=== PATIENT | male | born 1955 | race Caucasian/White ===

== ENCOUNTER → 2022-12-10 07:54 | Outpatient (BNVA) | payer MEDICARE, SELFPAY | PROVIDERS: PCP Pediatrics; Visit Provider Internal Medicine Rheumatology | DX: M25.511 Pain in right shoulder (principal); M25.512 Pain in left shoulder; M25.551 Pain in right hip; M25.552 Pain in left hip; H35.52 Pigmentary retinal dystrophy; M10.9 Gout, unspecified; Z87.39 Personal history of other diseases of the musculoskeletal system and connective tissue | CPT/HCPCS: 99202 ==

== ENCOUNTER 2022-12-10 09:58 | Outpatient (REF) | payer MEDICARE, SELFPAY ==
[2022-12-10 10:25] LABS: MANUAL DIFF FLAG NO
[2022-12-10 10:30] LABS: Basophils Percent Auto 0.5 % (0-2); Eosinophils Absolute Auto 0.1 X10*3/uL (0.0-0.4); Eosinophils Percent Auto 0.8 % (0-4); Hematocrit 45.5 % (42.0-52.0); Hemoglobin 15.3 g/dl (14.0-18.0); Imm Gran Abs Auto 0.21 X10*3/uL (0.00-0.03); Imm Gran Pct Auto 2.6 % (0.0-0.4); Lymphocytes Absolute Auto 1.3 X10*3/uL (1.2-4.9); Lymphocytes Percent Auto 16.9 % (20-40); Mean Corpuscular HGB Conc 33.6 g/dl (31.0-36.0); Mean Corpuscular Hemoglobin 31.6 pg (27.0-33.0); Mean Platelet Volume 10.9 fL (9.4-12.4); Monocytes Absolute Auto 0.7 X10*3/uL (0.1-1.2); Monocytes Percent Auto 9.3 % (2-11); Neutrophils Absolute Auto 5.5 x10*3/uL (2.0-8.3); Neutrophils Percent Auto 69.9 % (45-73); Platelet Count 202 X10*3/uL (160-400); Red Blood Count 4.84 X10*6/uL (4.60-5.80); Red Cell Distribution Width 12.8 % (11.0-16.0); White Blood Count 7.9 X10*3/uL (4.8-10.8)
[2022-12-10 11:14] LABS: Erythrocyte Sedimentation Rate 3 MM/HR (0-15)
[2022-12-10 11:29] LABS: Anion Gap 14 (12-20); Blood Urea Nitrogen 14 mg/dL (9-16); Calcium 10.1 mg/dL (8.4-10.2); Carbon Dioxide 26 mmol/L (22-29); Chloride 104 mmol/L (96-108); Estimated Glomerular Filt Rate > 60; Glucose Random 93 mg/dL (60-115); Potassium 4.1 mmol/L (3.3-5.1); Sodium 140 mmol/L (135-145); Uric Acid 4.7 mg/dL (3.4-7.0)
== END 2022-12-10 09:59 | disposition home or self-care (01) ==
LOC: HO.10HDL 09:58
PROVIDERS: Visit Provider Internal Medicine Rheumatology
DX: M10.9 Gout, unspecified (principal); M25.551 Pain in right hip; M25.552 Pain in left hip; E11.9 Type 2 diabetes mellitus without complications; E87.6 Hypokalemia; E87.0 Hyperosmolality and hypernatremia; E89.0 Postprocedural hypothyroidism; F32.9 Major depressive disorder, single episode, unspecified; I10 Essential (primary) hypertension; Z87.39 Personal history of other diseases of the musculoskeletal system and connective tissue
CPT/HCPCS: 36415; 80048; 84550; 85025; 85652; 86140

== ENCOUNTER 2023-01-30 08:21 | Outpatient (AMB) | payer MEDICARE, SELFPAY ==
--- NOTE | 2023-01-30 08:23 | A.OFFVIS_ITS ---
Intake Vital Signs 01/30/23 08:24 Height 5 ft 10 in Weight 175 lb 11.335 oz BMI 25.2 BP 160/82 H Blood Pressure Location Lt brachial Position Sitting Pulse 82 Pulse Source Pulse Oximeter Temp 97 F Temp Source Skin Pulse Oximetry (%) 98 Oxygen Delivery Method Room Air Intake Visit Reasons: PMR Intake Note: Here for PMR follow up. Battery Plate Remover Required: No Accompanied by: Self / Same As Patient Allergies No Known Allergies Allergy (Verified 01/30/23 08:28) HPI HPI Comments History of Present Illness Details Patient returns for evaluation of his PMR and gout. He is down to 5 mg twice a day on the prednisone and feels that was quite helpful. He was having some left knee pain from OA. He did acquire a PRP injection there from Orthopedics in [place]. It did seem to help him. He has not had any headache, jaw claudication or visual disturbance. He remains on 100 mg daily allopurinol with no side effects with that and no gout attacks. Interestingly enough when we restarted the prednisone the CRP and ESR were normal. He is doing some home renovations and developed some right lateral epicondylar pain after working with some sheet rock yesterday. He had a similar injury years ago in the left elbow so he knows this is tendinitis. He can not tolerate diclofenac orally for more than a few doses before he gets abdominal pain. It does help when he takes it however. [facility] Medical History (Updated 01/30/23 @ 08:42 by Jair Bowling MD) History of pulmonary embolus (PE) History of rectal cancer Surgical History History of melanoma excision Family History Mother Breast cancer Father Stroke Social History Alcohol intake: current Patient Tobacco Use Status: Former Tobacco user Review of Systems Const Details: Negative for appetite change, weight change, fever, chills, malaise and fatigue Eyes Details: Negative for vision change, dry eyes,headaches and dizziness Neuro Details: Negative for epilepsy, palsy, stroke, changes in speech, tingling and weakness Endo Details: Negative for polyuria and polydypsia Joselito/Lymph Details: Negative for excessive bruising or bleeding. Physical Exam Vital Signs: Last Vital Signs Temp 97 F 01/30/23 08:24 Pulse 82 01/30/23 08:24 BP 160/82 H 01/30/23 08:24 Pulse Ox 98 01/30/23 08:24 Oxygen Delivery Method Room Air 01/30/23 08:24 BMI result Body Mass Index 25.2 APPEARANCE: Patient in no acute distress EYES no redness, pupils equal and reactive to light, eyelids normal no temporal artery tenderness. No temporal artery tenderness redness or swelling. EXTREMITIES: No edema, no calf tenderness, normal peripheral pulses. JOINT EXAM: ?? Cervical Spine:.? Full range of motion with mild pain at the extremes of motion.? No tenderness. Thoracic Spine:.? No scoliosis.? No tenderness on palpation. Lumbar Spine:.? Alignment normal.? Full range of motion without pain, no tenderness. Chest Wall:.? No tenderness, swelling, increased warmth or erythema. Hands:.? Normal pain-free range of motion without tenderness, swelling, increased warmth or erythema. Able to make a full fist and has a good social work program coordinator strength. Wrists:.? Normal pain-free range of motion without tenderness, swelling, increased warmth or erythema. Elbows: Left: Normal pain-free range of motion without tenderness, swelling, increased warmth or erythema. Right: Slight pain with full extension at the elbow. The pain is felt over the lateral epicondyle where he has [id number] tenderness. No tenderness or swelling over the joint space. Shoulders:.?? Full range of motion with mild pain at the extremes of abduction and rotation.? There is some slight anterior tenderness without adenopathy, weakness, swelling, increased warmth or erythema. Hips:.? Normal pain-free range of motion. Hip bursa:.? No tenderness. Knees:? Left:?? Normal pain-free range of motion without tenderness, swelling, increased warmth or erythema.? There is no effusion or crepitation.? Right:? Normal pain-free range of motion.? There is some slight medial compartment tenderness without redness, warmth, crepitus or effusion. Ankles:.? Normal pain-free range of motion without tenderness, swelling, increased warmth or erythema. Feet:.? Normal pain-free range of motion with mild 1st MTP bony enlargement bilaterally.? This is a bit more prominent on the left.? There is no MTP tenderness.? Elsewhere in the foot there is no tenderness, swelling, increased warmth or erythema. Tender points:? No tenderness to digital palpation at the occiput, trapezius, second rib, lateral epicondyle, knees, greater trochanter and gluteal area bilaterally. ? Results Reviewed Results Reviewed: Laboratory Tests 12/10/22 12/10/22 12/10/22 10:04 10:04 10:04 WBC 7.9 Hgb 15.3 ESR 3 Creatinine 0.88 C-Reactive Protein 0.30 Laboratory Tests 12/10/22 10:04 Uric Acid 4.7 Assessment & Plan Assessment & Plan (1) Lateral epicondylitis of right elbow: Code(s): M77.11 - Lateral epicondylitis, right elbow (2) Gout: Comment: allopurinol started 2014 Code(s): M10.9 - Gout, unspecified (3) History of polymyalgia rheumatica: Comment: On prednisone in 2014 - tapered off, restarted 11/2022 Code(s): Z87.39 - Personal history of other diseases of the musculoskeletal system and connective tissue Plan He has PMR with no symptoms on this current dose of prednisone so we will have him cut the dose to 5 mg in the morning and 2.5 mg in the afternoon. If that goes okay after one month he will cut the dose down to just 5 mg once daily. I will prescribe some Celebrex 200 mg daily for the lateral epicondylitis in the right elbow. He was advised to avoid overuse of the elbow. Medications: New prednisone two in AM and one in PM for a month, then two in AM 90 tabs 1RF Z87.39 - Personal history of other diseases of the musculoskeletal system and connective tissue celecoxib (Celebrex) 200 mg PO DAILY 30 caps 1RF M77.11 - Lateral epicondylitis, right elbow Discontinued prednisone Discontinued Reason: Doctor's Order 3 tab once a day for 5 days then one tab twice a day 60 tabs 3RF Coding Level of Care Code Est Pt Level 3 (14276) Diagnoses Lateral epicondylitis of right elbow M77.11 Gout M10.9 History of polymyalgia rheumatica Z87.39
[2023-01-30 08:24] VITALS: BP 160/82; PULSE 82; TEMP 36.1; O2SAT 98; BMI 25.2
== END 2023-01-30 08:50 | disposition home or self-care (01) ==
PROVIDERS: PCP Pediatrics; Visit Provider Internal Medicine Rheumatology
DX: M77.11 Lateral epicondylitis, right elbow (principal); M10.9 Gout, unspecified; Z87.39 Personal history of other diseases of the musculoskeletal system and connective tissue
CPT/HCPCS: 99213

== ENCOUNTER → 2023-01-30 08:21 | Outpatient (BNVA) | payer MEDICARE, SELFPAY | PROVIDERS: PCP Pediatrics; Visit Provider Internal Medicine Rheumatology | DX: M77.11 Lateral epicondylitis, right elbow (principal); M10.9 Gout, unspecified; Z87.39 Personal history of other diseases of the musculoskeletal system and connective tissue | CPT/HCPCS: 99212 ==

== ENCOUNTER 2023-04-22 08:09 | Outpatient (AMB) | payer MEDICARE, SELFPAY ==
[2023-04-22 08:18] VITALS: BP 120/70; TEMP 36.7; BMI 24.8
--- NOTE | 2023-04-22 08:18 | MHC.OFFVIS ---
Intake Vital Signs 04/22/23 08:18 Height 5 ft 10 in Weight 172 lb 13.478 oz BMI 24.8 BP 120/70 Blood Pressure Location Lt brachial Position Sitting Temp 98.1 F Temp Source Skin Intake Visit Reasons: pmr Intake Note: Patient presents today to follow up on lateral epicondylitis of right elbow. Reports being admitted to [facility] due to clot on right lung. Discharged 04/18/23. Pilot Steam Yacht Required: No Accompanied by: Self / Same As Patient Allergies No Known Allergies Allergy (Verified 04/22/23 08:22) Medication List - Last Reconciled 04/22/23 by Jair Bowling MD allopurinol 300 mg PO DAILY allopurinol 100 mg PO DAILY amlodipine 2.5 mg PO DAILY apixaban (Eliquis DVT-PE Treat 30D Start) 5 mg PO DIRECTED benazepril 40 mg PO DAILY omeprazole 20 mg PO DAILY pravastatin 80 mg PO BEDTIME prednisone 5 mg PO QAM HPI HPI Comments History of Present Illness Details The patient returns for evaluation of his PMR. He had been doing well at 5 mg b.i.d. prednisone and we tapered it to 2.5 daily and he felt worse. We increased it back up to 5 mg prednisone twice a day and he felt better. However he then again tapered down to 5 mg and was feeling worse with more pains in the hips, neck and shoulders. However last Friday he developed pleuritic right-sided chest pain. He had had a previous pulmonary embolus following right rotator cuff surgery years ago so he was concerned about a PE. That was confirmed at [facility]. He is now on Eliquis. The chest pain is still present although subsiding. He also had some right anterior rib pain that had developed after he bumped his rib cage in the bathroom few weeks ago. That pain seems to be in a different location. He no longer has any shortness of breath. There was no fever, chills, headache, or visual disturbances. He does admit to some decrease in appetite but otherwise feels okay. He remains on allopurinol 400 mg daily for gout and amlodipine and benazepril for hypertension. The Eliquis is at 10 mg twice a day currently and scheduled to reduce to 5 mg twice a day. He takes pravastatin for hyperlipidemia and he stopped the Celebrex that he was taking for OA. I do not have access yet to his discharge summary but we are trying to obtain it from [facility]. He recalls having a low potassium. He recalls that they did not give him a good reason why he had the PE. They did the ultrasound of the legs and no clots were found. [facility] Medical History (Updated 04/22/23 @ 08:22 by Jair Bowling MD) History of rectal cancer History of pulmonary embolus (PE) Surgical History History of melanoma excision Family History Mother Breast cancer Father Stroke Social History (Updated 04/22/23 @ 08:22 by SHELDON James) Alcohol intake: current Alcohol intake frequency: a few times a week Patient Tobacco Use Status: Former Tobacco user Review of Systems Const Details: Some decrease in appetite last few weeks. He has lost a couple of lb. 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 Negative for dry eyes,headaches and dizziness ENT Details: Negative for hearing change, dysphagia, tinnitus, oral ulcer, nose bleeds and oral dryness. Card Details: Negative chest pain, edema and syncope Resp Details: Negative for SOB, cough and wheezing GI Details: Negative indigestion/heartburn, nausea, abdominal pain, bowel changes, diarrhea, constipation and bloody stool. Details: Negative for dysuria, hematuria, nocturia, decreased force/flow and genital discharge Skin/Breast Details: Negative for itching, rash, hives, Raynaud's symptoms, sun sensitivity, and skin cancer Neuro Details: Negative for epilepsy, palsy, stroke, changes in speech, tingling and weakness Psych Details: Negative for anxiety, depression and stress Endo Details: Negative for polyuria and polydypsia Joselito/Lymph Details: Negative for excessive bruising or bleeding. Physical Exam Vital Signs: Last Vital Signs Temp 98.1 F 04/22/23 08:18 BP 120/70 04/22/23 08:18 BMI result Body Mass Index 24.8 APPEARANCE: Patient in no acute distress EYES no redness, pupils equal and reactive to light, eyelids normal. No temporal artery tenderness, redness or swelling. THROAT: Oral mucosa moist, no ulcerations NECK: No thyromegaly or masses, no adenopathy, trachea midline. HEART: Regulrar rhythm, S1-S2 heard, no murmurs, rubs or gallops. LUNG: Clear to percussion and auscultation. Taking a deep breath still causes some pleuritic pain on the right side. He also has some right costal margin tenderness. ABD: Normal bowel sounds, no organomegaly, masses or tenderness. EXTREMITIES: No edema, no calf tenderness, normal peripheral pulses. NEURO: Oriented and alert x3. No focal weakness. Reflexes symmetric. Gait normal. SKIN: No inflammatory or neoplastic lesions. Normal color and turgor JOINT EXAM:?? Cervical Spine:.? Full range of motion with mild pain at the extremes of motion.? No tenderness. Thoracic Spine:.? No scoliosis.? No tenderness on palpation. Lumbar Spine:.? Alignment normal.? Full range of motion without pain, no tenderness. Chest Wall:.? Mild tenderness along the right costal margin. No areas of swelling, increased warmth or erythema. Hands:.? Right: Slight tenderness in the 2nd and 5th flexor tendons. No soft tissue swelling, thenar atrophy or sensory loss. Left: Mild tenderness along the 5th flexor tendon. Otherwise normal pain-free range of motion without tenderness, swelling, increased warmth or erythema. No thenar atrophy or sensory loss. Wrists:.? Normal pain-free range of motion without tenderness, swelling, increased warmth or erythema. Elbows: Left: Normal pain-free range of motion without tenderness, swelling, increased warmth or erythema. Right: Slight pain with full extension at the elbow. The pain is felt over the lateral epicondyle where he has mild tenderness. No tenderness or swelling over the joint space. Shoulders:.?? Full range of motion with mild pain at the extremes of abduction and rotation.? There is some slight anterior tenderness without adenopathy, weakness, swelling, increased warmth or erythema. Hips:.? Mild buttock and groin pain with extremes of normal range of motion. Hip bursa:.? No tenderness. Knees:? Left:?? Normal pain-free range of motion without tenderness, swelling, increased warmth or erythema.? There is no effusion or crepitation.? Right:? Normal pain-free range of motion.? There is some slight medial compartment tenderness without redness, warmth, crepitus or effusion. Ankles:.? Normal pain-free range of motion without tenderness, swelling, increased warmth or erythema. Feet:.? Normal pain-free range of motion with mild 1st MTP bony enlargement bilaterally.? This is a bit more prominent on the left.? There is no MTP tenderness.? Elsewhere in the foot there is no tenderness, swelling, increased warmth or erythema. Tender points:? No tenderness to digital palpation at the occiput, trapezius, second rib, lateral epicondyle, knees, greater trochanter and gluteal area bilaterally. Results Reviewed Results Reviewed: Laboratory Tests 12/10/22 10:04 Hgb 15.3 ESR 3 Creatinine 0.88 Uric Acid 4.7 C-Reactive Protein 0.30 Assessment & Plan Assessment & Plan (1) Pulmonary embolism: Comment: 04/2023 at [facility] Code(s): I26.99 - Other pulmonary embolism without acute cor pulmonale (2) Lateral epicondylitis of right elbow: Code(s): M77.11 - Lateral epicondylitis, right elbow (3) Gout: Comment: allopurinol started 2014 Code(s): M10.9 - Gout, unspecified (4) History of polymyalgia rheumatica: Comment: On prednisone in 2014 - tapered off, restarted 11/2022 Code(s): Z87.39 - Personal history of other diseases of the musculoskeletal system and connective tissue Plan PMR with some increase in symptoms with the reduction in prednisone dose. We will go back up on the prednisone to 5 mg twice a day. I think he should stay at that dose for a while, a few months, to allow the disease to be controlled. He does not have any signs of giant cell arteritis. The recent development of a pulmonary embolus without any obvious predisposing cause raises the question whether he might have a coagulopathy. I would presume they did some workup in the hospital to that end but probably the blood work is not returned. He should follow-up with his PCP on further evaluation for hypercoagulable state, help may be needed from Hematology. He should stay away from the Celebrex since it is a potential risk factor for bleeding and with being on the anticoagulant that could be a significant clinical event. He is doing well with the allopurinol with no gout attacks so he can continue as before. There still are some tenderness in a few of the flexor tendons from tenosynovitis and the elbows from lateral epicondylitis. I will check ESR and CRP when he has his blood work done with his primary doctor in few weeks. Medications: New prednisone 5 mg (2 x 2.5 mg) PO BID 120 tabs 0RF Z87.39 - Personal history of other diseases of the musculoskeletal system and connective tissue Coding Level of Care Code Est Pt Level 3 (78898) Diagnoses Pulmonary embolism I26.99 Lateral epicondylitis of right elbow M77.11 Gout M10.9 History of polymyalgia rheumatica Z87.39
== END 2023-04-22 09:16 | disposition home or self-care (01) ==
PROVIDERS: PCP Pediatrics; Visit Provider Internal Medicine Rheumatology
DX: I26.99 Other pulmonary embolism without acute cor pulmonale (principal); M77.11 Lateral epicondylitis, right elbow; M10.9 Gout, unspecified; Z87.39 Personal history of other diseases of the musculoskeletal system and connective tissue
CPT/HCPCS: 99213

== ENCOUNTER → 2023-04-22 08:09 | Outpatient (BNVA) | payer MEDICARE, SELFPAY | PROVIDERS: PCP Pediatrics; Visit Provider Internal Medicine Rheumatology | DX: M10.9 Gout, unspecified (principal); M77.11 Lateral epicondylitis, right elbow; M35.3 Polymyalgia rheumatica; I26.99 Other pulmonary embolism without acute cor pulmonale | CPT/HCPCS: 99212 ==

== ENCOUNTER 2023-06-03 08:16 | Outpatient (AMB) | payer MEDICARE, SELFPAY ==
--- NOTE | 2023-06-03 08:19 | MHC.OFFVIS ---
Intake Vital Signs 06/03/23 08:22 Height 5 ft 10 in Weight 171 lb 8.314 oz BMI 24.6 BP 126/78 Blood Pressure Location Lt brachial Position Sitting Pulse 59 Pulse Source Pulse Oximeter Temp 96.8 F Temp Source Skin Pulse Oximetry (%) 95 Oxygen Delivery Method Room Air Intake Visit Reasons: pmr Intake Note: Patient last seen 04/22/23, presents today for follow up and test results. Would like left hand trigger finger injections Wide Load Escort Required: No Accompanied by: Self / Same As Patient Allergies No Known Allergies Allergy (Verified 06/03/23 08:25) HPI HPI Comments History of Present Illness Details The patient returns for evaluation of his PMR. He is on the 2.5 mg prednisone tablets taking 2 tablets b.i.d. With that regimen he feels fine with no hip or shoulder pain. He has been having however some return of triggering of the left 2nd and 5th digits. These were last injected back in August. He had plans to see the hand surgeon but because of the recent pulmonary embolus that has been put on hold. He would like those tendons injected again today. Last injections apparently were back in August and helped up until March. He remains on Eliquis as an anticoagulant. He is supposed to see Hematology in the next few weeks to see how long his treatment should be recommended. There are no problems with headache, jaw claudication or visual disturbance. [facility] Medical History (Updated 06/03/23 @ 09:12 by Jair Bowling MD) History of rectal cancer History of pulmonary embolus (PE) Surgical History History of melanoma excision Family History Mother Breast cancer Father Stroke Social History Alcohol intake: current Alcohol intake frequency: a few times a week Patient Tobacco Use Status: Former Tobacco user Review of Systems Const Details: Negative for appetite change, weight change, fever, chills, malaise and fatigue Eyes Details: Legally blind due to RP. Negative for vision change, dry eyes,headaches and dizziness Card Details: Negative chest pain, edema and syncope Resp Details: Negative for SOB, cough and wheezing GI Details: Negative indigestion/heartburn, nausea, abdominal pain, bowel changes, diarrhea, constipation and bloody stool. Endo Details: Negative for polyuria and polydypsia Joselito/Lymph Details: Negative for excessive bruising or bleeding. Physical Exam Vital Signs: Last Vital Signs Temp 96.8 F 06/03/23 08:22 Pulse 59 06/03/23 08:22 BP 126/78 06/03/23 08:22 Pulse Ox 95 06/03/23 08:22 Oxygen Delivery Method Room Air 06/03/23 08:22 BMI result Body Mass Index 24.6 APPEARANCE: Patient in no acute distress EYES no redness, pupils equal and reactive to light, eyelids normal. No temporal artery tenderness, redness or swelling. EXTREMITIES: No edema, no calf tenderness, normal peripheral pulses. JOINT EXAM:?? Cervical Spine:.? Full range of motion with mild pain at the extremes of motion.? No tenderness. Thoracic Spine:.? No scoliosis.? No tenderness on palpation. Lumbar Spine:.? Alignment normal.? Full range of motion without pain, no tenderness. Chest Wall:.? Mild tenderness along the right costal margin. No areas of swelling, increased warmth or erythema. Hands:.? Right: Slight tenderness and triggering at the 3rd flexor tendon. No soft tissue swelling, thenar atrophy or sensory loss. Left: Mild tenderness along the the 2nd and 5th flexor tendons. There is triggering in both areas. The 2nd flexor tendon has some nodularity and thickening. Otherwise normal pain-free range of motion without tenderness, swelling, increased warmth or erythema. No thenar atrophy or sensory loss. Wrists:.? Normal pain-free range of motion without tenderness, swelling, increased warmth or erythema. Elbows: Left: Normal pain-free range of motion without tenderness, swelling, increased warmth or erythema. Right: Slight pain with full extension at the elbow. The pain is felt over the lateral epicondyle where he has mild tenderness. No tenderness or swelling over the joint space. Shoulders:.?? Full range of motion with mild pain at the extremes of abduction and rotation.? There is no tenderness, adenopathy, weakness, swelling, increased warmth or erythema. Hips:.? Pain-free range of motion.. Hip bursa:.? No tenderness. Knees:? Left:?? Normal pain-free range of motion without tenderness, swelling, increased warmth or erythema.? There is no effusion or crepitation.? Right:? Normal pain-free range of motion.? There is some slight medial compartment tenderness without redness, warmth, crepitus or effusion. Office Procedures Joint Injection/Drain Joint Injection/Drain Primary Site: left trigger finger Injected: 40 mg of, with 1 mL of and 1% plain lidocaine Coding Details: The palm of the left hand was prepped with ChloraPrep and alcohol. Under topical ethyl chloride spray the 2nd flexor tendon sheath was injected with 20 mg of triamcinolone and 0.5 cc of 1% lidocaine. The patient tolerated the procedure without any acute complications. The palm of the left hand was prepped with ChloraPrep and alcohol. Under topical ethyl chloride spray the 5th flexor tendon sheath was injected with 20 mg of triamcinolone and 0.5 cc of 1% lidocaine. The patient tolerated the procedure without any acute complications. Additional procedure code (CPT) needed Results Reviewed Results Reviewed: Laboratory Tests 12/10/22 10:04 ESR 3 C-Reactive Protein 0.30 Assessment & Plan Assessment & Plan (1) Flexor tenosynovitis of finger: Code(s): M65.9 - Synovitis and tenosynovitis, unspecified (2) History of polymyalgia rheumatica: Comment: On prednisone in 2014 - tapered off, restarted 11/2022 Code(s): Z87.39 - Personal history of other diseases of the musculoskeletal system and connective tissue Plan PMR with good control of symptoms with current prednisone dose. They have never been any signs of giant cell arteritis and that seems to be the case today as well. We will check the acute phase reactants in the next day or so. Assuming those are okay he can reduce his prednisone 5 mg in the morning and 2.5 mg the evening. If he has trouble at that dose he should call us for dosage adjustment. He again is symptomatic flexor tenosynovitis involving the left 2nd and 5th fingers. He is requesting injection there since surgery seems to be not in the cards soon given his recent pulmonary embolus. The palm of the left hand was prepped with ChloraPrep and alcohol. Under topical ethyl chloride spray the the will 2nd flexor tendon sheath was injected with 20 mg of triamcinolone and 0.5 cc of 1% lidocaine. The patient tolerated the procedure without any acute complications. The palm of the left hand was prepped with ChloraPrep and alcohol. Under topical ethyl chloride spray the 5th flexor tendon sheath was injected with 20 mg of triamcinolone and 0.5 cc of 1% lidocaine. The patient tolerated the procedure without any acute complications. I suspect the flexor tenosynovitis will recur and he will need to eventually pursue surgery. He has seen the surgeon but wants to wait until he finds out about the anticoagulation plans. I would not inject these tendons again for at least 6 months. We will book him for follow-up in about 3 months with lab work before that visit follow-up on the PMR. Orders: Orders Erythrocyte Sedimentation Rate Today Z87.39 - Personal history of other diseases of the musculoskeletal system and connective tissue C Reactive Protein Today Z87.39 - Personal history of other diseases of the musculoskeletal system and connective tissue AMB Joint Injection/Aspiration Today M65.9 - Synovitis and tenosynovitis, unspecified Coding Level of Care Code Est Pt Level 3 (59413) Diagnoses Flexor tenosynovitis of finger M65.9 History of polymyalgia rheumatica Z87.39
[2023-06-03 08:22] VITALS: BP 126/78; PULSE 59; TEMP 36; O2SAT 95; BMI 24.6
== END 2023-06-03 09:08 | disposition home or self-care (01) ==
PROVIDERS: PCP Pediatrics; Visit Provider Internal Medicine Rheumatology
DX: M65.9 Synovitis and tenosynovitis, unspecified (principal); Z87.39 Personal history of other diseases of the musculoskeletal system and connective tissue
CPT/HCPCS: 99213

== ENCOUNTER → 2023-06-03 08:16 | Outpatient (BNVA) | payer MEDICARE, SELFPAY | PROVIDERS: PCP Pediatrics; Visit Provider Internal Medicine Rheumatology | DX: M65.9 Synovitis and tenosynovitis, unspecified (principal); Z87.39 Personal history of other diseases of the musculoskeletal system and connective tissue | CPT/HCPCS: 20551; 99212 ==

== ENCOUNTER 2023-09-03 08:52 | Outpatient (AMB) | payer MEDICARE, SELFPAY ==
[2023-09-03 08:55] VITALS: BP 130/86; PULSE 69; TEMP 36.6; O2SAT 95; BMI 25.2
--- NOTE | 2023-09-03 08:55 | MHC.OFFVIS ---
Intake Vital Signs 09/03/23 08:55 Height 5 ft 10 in Weight 175 lb 11.335 oz BMI 25.2 BP 130/86 Blood Pressure Location Rt brachial Position Sitting Pulse 69 Pulse Source Pulse Oximeter Temp 97.9 F Temp Source Skin Pulse Oximetry (%) 95 Oxygen Delivery Method Room Air Intake Visit Reasons: PMR Allergies No Known Allergies Allergy (Verified 09/03/23 08:56) Medication List - Last Reconciled 09/03/23 by Caryn Reyna RN allopurinol 300 mg PO DAILY allopurinol 100 mg PO DAILY amlodipine 2.5 mg PO DAILY apixaban (Eliquis) 5 mg PO BID benazepril 40 mg PO DAILY omeprazole 20 mg PO DAILY pravastatin 80 mg PO BEDTIME prednisone 5 mg PO DAILY prednisone 2.5 mg PO DAILY HPI HPI Comments History of Present Illness Details Mr. Clay returns for follow-up of his PMR and go. He is on the 2.5 mg prednisone tablets taking 1 tablets b.i.d. he reports he is doing fairly well with no hip or shoulder pain today. He is scheduled to do hand surgery for triggering of the left 2nd and 5th digits. These were last injected back in May 2023. He remains on Eliquis as an anticoagulant and will be seeing Hematology in the next few weeks to see if his treatment should be continued. He denies problems with headache, jaw claudication or visual disturbance. We discussed at length his course of PMR for the last 10 years. However, the patient states there has never been increase in acute phase reactants which is typical with PMR. He is also on allopurinol 400 for gout and also said that his uric acid levels have never been elevated. 06/03/[address] Bowling: The patient returns for evaluation of his PMR. He is on the 2.5 mg prednisone tablets taking 2 tablets b.i.d. With that regimen he feels fine with no hip or shoulder pain. He has been having however some return of triggering of the left 2nd and 5th digits. These were last injected back in August. He had plans to see the hand surgeon but because of the recent pulmonary embolus that has been put on hold. He would like those tendons injected again today. Last injections apparently were back in August and helped up until March. He remains on Eliquis as an anticoagulant. He is supposed to see Hematology in the next few weeks to see how long his treatment should be recommended. There are no problems with headache, jaw claudication or visual disturbance. [facility] Medical History (Updated 09/03/23 @ 10:50 by [facility] Generalized osteoarthritis of multiple sites PMR (polymyalgia rheumatica) History of rectal cancer History of pulmonary embolus (PE) Surgical History History of melanoma excision Family History Mother Breast cancer Father Stroke Social History Alcohol intake: current Alcohol intake frequency: a few times a week Patient Tobacco Use Status: Former Tobacco user Review of Systems Const All systems reviewed & are unremarkable except as noted in HPI and below Physical Exam Vital Signs: Last Vital Signs Temp 97.9 F 09/03/23 08:55 Pulse 69 09/03/23 08:55 BP 130/86 09/03/23 08:55 Pulse Ox 95 09/03/23 08:55 Oxygen Delivery Method Room Air 09/03/23 08:55 BMI result Body Mass Index 25.2 APPEARANCE: Patient in no acute distress EYES no redness, pupils equal and reactive to light, eyelids normal. No temporal artery tenderness, redness or swelling. EXTREMITIES: No edema, no calf tenderness, normal peripheral pulses. JOINT EXAM:?? Cervical Spine:.? Full range of motion with mild pain at the extremes of motion.? No tenderness. Thoracic Spine:.? No scoliosis.? No tenderness on palpation. Lumbar Spine:.? Alignment normal.? Full range of motion without pain, no tenderness. Chest Wall:.? Mild tenderness along the right costal margin. No areas of swelling, increased warmth or erythema. Hands:.? Right: Slight tenderness and triggering at the 3rd flexor tendon. No soft tissue swelling, thenar atrophy or sensory loss. Left: Mild tenderness along the the 2nd and 5th flexor tendons. There is triggering in both areas. The 2nd flexor tendon has some nodularity and thickening. Otherwise normal pain-free range of motion without tenderness, swelling, increased warmth or erythema. No thenar atrophy or sensory loss. Wrists:.? Normal pain-free range of motion without tenderness, swelling, increased warmth or erythema. Elbows: Left: Normal pain-free range of motion without tenderness, swelling, increased warmth or erythema. Right: Slight pain with full extension at the elbow. The pain is felt over the lateral epicondyle where he has mild tenderness. No tenderness or swelling over the joint space. Shoulders:.?? Full range of motion with mild pain at the extremes of abduction and rotation.? There is no tenderness, adenopathy, weakness, swelling, increased warmth or erythema. Hips:.? Pain-free range of motion.. Hip bursa:.? No tenderness. Knees:? Left:?? Normal pain-free range of motion without tenderness, swelling, increased warmth or erythema.? There is no effusion or crepitation.? Right:? Normal pain-free range of motion.? There is some slight medial compartment tenderness without redness, warmth, crepitus or effusion. Ankles:.? Normal pain-free range of motion without tenderness, swelling, increased warmth or erythema. Feet:.? Normal pain-free range of motion without tenderness, swelling, increased warmth or erythema. Results Reviewed Results Reviewed: Laboratory Tests 12/10/22 10:04 ESR 3 C-Reactive Protein 0.30 Assessment & Plan Assessment & Plan (1) Flexor tenosynovitis of finger: Code(s): M65.9 - Synovitis and tenosynovitis, unspecified (2) Gout: Comment: allopurinol started 2014 Code(s): M10.9 - Gout, unspecified Qualifiers: Gout site: multiple sites Gout etiology: idiopathic Chronicity: chronic Presence of tophus: without tophus Qualified Code(s): M1A.09X0 - Idiopathic chronic gout, multiple sites, without tophus (tophi) (3) PMR (polymyalgia rheumatica): Comment: On prednisone in 2014 - tapered off, restarted 11/2022 Code(s): M35.3 - Polymyalgia rheumatica (4) Generalized osteoarthritis of multiple sites: Code(s): M15.9 - Polyosteoarthritis, unspecified Plan #Presumed PMR with good control of symptoms with current prednisone dose. The patient is currently on 2.5 b.i.d. without return of symptoms. We will reduce his prednisone to 2.5 in the morning and 1 mg in the. If he has trouble at that dose he should call us for dosage adjustment. We discussed at length that his his PMR continues to be intractable, it is possible is seronegative rheumatoid arthritis and so we can discuss alternate treatment at that point. The patient agrees with that plan. I will obtain lab work today to evaluate some additional measures for PMR and gout. #Flexor tenosynovitis: He again is symptomatic flexor tenosynovitis involving the left 2nd and 5th fingers. He is scheduled for upcoming surgery #Generalized OA: He is generalized arthritis is helped by diclofenac so he would like another prescription so I will send #Gout:The patient denies gout flares within the last year. He will continue on allopurinol 400 mg q.d. At next visit we will discuss reducing allopurinol by 100 mg and reassess. Follow-up 3 months. I spent 50 minutes reviewing history, evaluating and educating and discussing with the patient and documenting Orders: Orders Erythrocyte Sedimentation Rate Today M10.9 - Gout, unspecified, M65.9 - Synovitis and tenosynovitis, unspecified, Z87.39 - Personal history of other diseases of the musculoskeletal system and connective tissue DESTINEY Reflex Titer and Pattern Today M10.9 - Gout, unspecified, M65.9 - Synovitis and tenosynovitis, unspecified, Z87.39 - Personal history of other diseases of the musculoskeletal system and connective tissue Anti DNA DS Antibody Today M10.9 - Gout, unspecified, M65.9 - Synovitis and tenosynovitis, unspecified, Z87.39 - Personal history of other diseases of the musculoskeletal system and connective tissue Anti Extractable Nuclear Ag Today M10.9 - Gout, unspecified, M65.9 - Synovitis and tenosynovitis, unspecified, Z87.39 - Personal history of other diseases of the musculoskeletal system and connective tissue C Reactive Protein Today M10.9 - Gout, unspecified, M65.9 - Synovitis and tenosynovitis, unspecified, Z87.39 - Personal history of other diseases of the musculoskeletal system and connective tissue Immunoglobulins,IgG IgA IgM Today M10.9 - Gout, unspecified, M65.9 - Synovitis and tenosynovitis, unspecified, Z87.39 - Personal history of other diseases of the musculoskeletal system and connective tissue Uric Acid Today M10.9 - Gout, unspecified, M65.9 - Synovitis and tenosynovitis, unspecified, Z87.39 - Personal history of other diseases of the musculoskeletal system and connective tissue T Spot TB Today M10.9 - Gout, unspecified, M65.9 - Synovitis and tenosynovitis, unspecified, Z87.39 - Personal history of other diseases of the musculoskeletal system and connective tissue Hepatitis A,B,C Profile Today M10.9 - Gout, unspecified, M65.9 - Synovitis and tenosynovitis, unspecified, Z87.39 - Personal history of other diseases of the musculoskeletal system and connective tissue Creatine Kinase Total Today M10.9 - Gout, unspecified, M65.9 - Synovitis and tenosynovitis, unspecified, Z87.39 - Personal history of other diseases of the musculoskeletal system and connective tissue Comprehensive Met. Panel Today M10.9 - Gout, unspecified, M65.9 - Synovitis and tenosynovitis, unspecified, Z87.39 - Personal history of other diseases of the musculoskeletal system and connective tissue Complete Blood Count Auto Diff Today M10.9 - Gout, unspecified, M65.9 - Synovitis and tenosynovitis, unspecified, Z87.39 - Personal history of other diseases of the musculoskeletal system and connective tissue Immunofixation Pnl, Serum Today M10.9 - Gout, unspecified, M65.9 - Synovitis and tenosynovitis, unspecified, Z87.39 - Personal history of other diseases of the musculoskeletal system and connective tissue Protein Electrophoresis, Serum Today M10.9 - Gout, unspecified, M65.9 - Synovitis and tenosynovitis, unspecified, Z87.39 - Personal history of other diseases of the musculoskeletal system and connective tissue Medications: New prednisone 1 mg PO DAILY 90 tabs 0RF M35.3 - Polymyalgia rheumatica diclofenac sodium 75 mg PO BID 30 tabs 0RF M15.9 - Polyosteoarthritis, unspecified Changed From prednisone 5 mg (2 x 2.5 mg) PO BID 120 tabs 2RF Z87.39 - Personal history of other diseases of the musculoskeletal system and connective tissue To prednisone 5 mg PO DAILY Z87.39 - Personal history of other diseases of the musculoskeletal system and connective tissue Coding Level of Care Code Est Pt Level 5 (43845) Diagnoses Flexor tenosynovitis of finger M65.9 Idiopathic chronic gout of multiple sites without tophus M1A.09X0 Gout site: multiple sites Gout etiology: idiopathic Chronicity: chronic Presence of tophus: without tophus PMR (polymyalgia rheumatica) M35.3 Generalized osteoarthritis of multiple sites M15.9
== END 2023-09-03 10:21 | disposition home or self-care (01) ==
PROVIDERS: PCP Pediatrics; Visit Provider Nurse Practitioner Family
DX: M65.9 Synovitis and tenosynovitis, unspecified (principal); M1A.09X0 Idiopathic chronic gout, multiple sites, without tophus (tophi); M35.3 Polymyalgia rheumatica; M15.9 Polyosteoarthritis, unspecified
CPT/HCPCS: 99215

== ENCOUNTER → 2023-09-03 08:52 | Outpatient (BNVA) | payer MEDICARE, SELFPAY | PROVIDERS: PCP Pediatrics; Visit Provider Nurse Practitioner Family ==

== ENCOUNTER 2023-09-03 09:47 | Outpatient (REF) | payer MEDICARE, SELFPAY ==
[2023-09-03 10:52] LABS: MANUAL DIFF FLAG NO
[2023-09-03 10:59] LABS: Basophils Absolute Auto 0.1 X10*3/uL (0.0-0.2); Basophils Percent Auto 0.6 % (0-2); Eosinophils Absolute Auto 0.1 X10*3/uL (0.0-0.4); Eosinophils Percent Auto 0.5 % (0-4); Hemoglobin 16.3 g/dl (14.0-18.0); Imm Gran Abs Auto 0.29 X10*3/uL (0.00-0.03); Imm Gran Pct Auto 2.8 % (0.0-0.4); Lymphocytes Absolute Auto 1.7 X10*3/uL (1.2-4.9); Lymphocytes Percent Auto 16.3 % (20-40); Mean Corpuscular Hemoglobin 31.7 pg (27.0-33.0); Mean Corpuscular Volume 93.4 fL (80.0-98.0); Mean Platelet Volume 10.7 fL (9.4-12.4); Monocytes Absolute Auto 0.9 X10*3/uL (0.1-1.2); Monocytes Percent Auto 8.2 % (2-11); Neutrophils Absolute Auto 7.6 x10*3/uL (2.0-8.3); Neutrophils Percent Auto 71.6 % (45-73); Platelet Count 212 X10*3/uL (160-400); Red Blood Count 5.14 X10*6/uL (4.60-5.80); Red Cell Distribution Width 13.2 % (11.0-16.0); White Blood Count 10.5 X10*3/uL (4.8-10.8)
[2023-09-03 11:10] LABS: Alanine Aminotransferase 39 U/L (0-40); Albumin Level 4.5 g/dL (3.5-5.0); Alkaline Phosphatase 53 U/L (39-117); Anion Gap 13 (12-20); Aspartate Amino Transferase 22 U/L (5-37); Bilirubin Total 0.9 mg/dL (0.0-1.0); Blood Urea Nitrogen 14 mg/dL (9-16); C Reactive Protein 0.22 mg/dL (< or = 0.50); Calcium 10.7 mg/dL (8.4-10.2); Carbon Dioxide 29 mmol/L (22-29); Chloride 102 mmol/L (96-108); Estimated Glomerular Filt Rate > 60; Glucose Random 84 mg/dL (60-115); Potassium 3.8 mmol/L (3.3-5.1); Sodium 140 mmol/L (135-145); Total Protein 7.1 g/dL (6.5-8.0); Uric Acid 4.9 mg/dL (3.4-7.0)
[2023-09-03 11:31] LABS: HBc Num1 0.03 S/CO (0.00-0.79); HBsAGNum1 0.32 S/CO (0.00-0.99); Hepatitis A Antibody IgM 0.24 Index (0-0.79); Hepatitis B Core Antibody Nonreactive (Nonreactive); Hepatitis B Surface Antigen Negative (Negative); ~HepC Num1 0.06 S/CO (0.00-0.79); ~Hepatitis A Antibody IgM Nonreactive (Nonreactive); ~Hepatitis B Surface Antibody NONREACTIVE (Nonreactive); ~Hepatitis C Antibody Nonreactive (Nonreactive)
[2023-09-03 11:51] LABS: Erythrocyte Sedimentation Rate 5 MM/HR (0-15)
[2023-09-06 07:49] LABS: TS Negative Control Passed; TS Panel A 0; TS Panel B 0; TS Positive Control Passed; TSpotTB Negative (Negative)
[2023-09-09 15:13] LABS: Anti Nuclear Antibody Screen POSITIVE (NEGATIVE); Anti Nuclear Antibody Titer 1:40 titer
[2023-09-09 22:08] LABS: Prot Elec - Albumin 4.3 g/dL (3.8-4.8); Prot Elec - Alpha1 0.3 g/dL (0.2-0.3); Prot Elec - Alpha2 0.6 g/dL (0.5-0.9); Prot Elec - Beta 1 0.4 g/dL (0.4-0.6); Prot Elec - Beta 2 0.4 g/dL (0.2-0.5); Prot Elec - Gamma 0.5 g/dL (0.8-1.7); Prot Elec - Total Protein 6.5 g/dL (6.1-8.1)
[2023-09-10 13:34] LABS: IgA 175 mg/dL (70-320); IgG 560 mg/dL (600-1540); IgM 58 mg/dL (50-300)
[2023-09-12 21:03] LABS: Anti DNA DS Antibody <1 IU/mL; SM/Ribonucleoprotein Ab <1.0 NEG AI (<1.0 NEG); Smith Protein <1.0 NEG AI (<1.0 NEG)
== END 2023-09-03 09:48 | disposition home or self-care (01) ==
LOC: HO.10HDL 09:47
PROVIDERS: Visit Provider Nurse Practitioner Family
DX: M35.3 Polymyalgia rheumatica (principal); M1A.09X0 Idiopathic chronic gout, multiple sites, without tophus (tophi); M65.9 Synovitis and tenosynovitis, unspecified; M15.9 Polyosteoarthritis, unspecified; Z87.39 Personal history of other diseases of the musculoskeletal system and connective tissue; Z79.52 Long term (current) use of systemic steroids
CPT/HCPCS: 36415; 80053; 82550; 82784; 84165; 84550; 85025; 85652; 86038; 86039; 86140; 86225; 86235; 86334; 86481; 86704; 86706; 86709; 86803; 87340; 99212

== ENCOUNTER 2023-11-13 14:28 | Outpatient (AMB) | payer MEDICARE, SELFPAY ==
--- NOTE | 2023-11-13 14:32 | MHC.OFFVIS ---
Vital Signs 11/13/23 14:40 Height 5 ft 10 in Weight 173 lb 4.533 oz BMI 24.9 BP 122/86 Blood Pressure Location Rt brachial Position Sitting Pulse 74 Pulse Oximetry (%) 96 Intake Visit Reasons: PMR?/SeroNeg?/lvm Intake Note: Patient last seen 09/03/23, presents today for follow up and test results. Patient feels prednisone alone is not helping him. Reports upcoming double trigger finger release at [facility] in the next week or so. Surveillance Operator Required: No Allergies No Known Allergies Allergy (Verified 11/13/23 14:38) HPI Comments Details: Mr. Clay 68yoM returns for follow-up of his PMR. Has been taking Prednisone --cut back to 300 mg Allopurinol x 1 1/2 month and has not had a flare. --Will reduce Eloquis under cardiac guidance. --history of blood clot - settled in lung from lower leg. 09/03/2023: Mr. Clay returns for follow-up of his PMR and go. He is on the 2.5 mg prednisone tablets taking 1 tablets b.i.d. he reports he is doing fairly well with no hip or shoulder pain today. He is scheduled to do hand surgery for triggering of the left 2nd and 5th digits. These were last injected back in May 2023. He remains on Eliquis as an anticoagulant and will be seeing Hematology in the next few weeks to see if his treatment should be continued. He denies problems with headache, jaw claudication or visual disturbance. We discussed at length his course of PMR for the last 10 years. However, the patient states there has never been increase in acute phase reactants which is typical with PMR. He is also on allopurinol 400 for gout and also said that his uric acid levels have never been elevated. 06/03/[address] Bowling: The patient returns for evaluation of his PMR. He is on the 2.5 mg prednisone tablets taking 2 tablets b.i.d. With that regimen he feels fine with no hip or shoulder pain. He has been having however some return of triggering of the left 2nd and 5th digits. These were last injected back in August. He had plans to see the hand surgeon but because of the recent pulmonary embolus that has been put on hold. He would like those tendons injected again today. Last injections apparently were back in August and helped up until March. He remains on Eliquis as an anticoagulant. He is supposed to see Hematology in the next few weeks to see how long his treatment should be recommended. There are no problems with headache, jaw claudication or visual disturbance. [facility] Medical History (Updated 11/13/23 @ 15:14 by [facility] Seronegative rheumatoid arthritis Generalized osteoarthritis of multiple sites PMR (polymyalgia rheumatica) History of rectal cancer History of pulmonary embolus (PE) Surgical History History of melanoma excision Family History Mother Breast cancer Father Stroke Social History (Updated 11/13/23 @ 14:40 by Meredith Ford [facility]) Alcohol intake: current Alcohol intake frequency: 0-2 drinks per day Alcohol type: beer Patient Tobacco Use Status: Former Tobacco user Physical Exam Vital Signs: Last Vital Signs Pulse 74 11/13/23 14:40 BP 122/86 11/13/23 14:40 Pulse Ox 96 11/13/23 14:40 BMI result Body Mass Index 24.9 Assessment & Plan Assessment & Plan (1) Flexor tenosynovitis of finger: Code(s): M65.9 - Synovitis and tenosynovitis, unspecified Category: Medical (2) Gout: Comment: allopurinol started 2014 Code(s): M10.9 - Gout, unspecified Category: Medical Qualifiers: Gout site: multiple sites Gout etiology: idiopathic Chronicity: chronic Presence of tophus: without tophus Qualified Code(s): M1A.09X0 - Idiopathic chronic gout, multiple sites, without tophus (tophi) (3) PMR (polymyalgia rheumatica): Comment: On prednisone in 2014 - tapered off, restarted 11/2022 Code(s): M35.3 - Polymyalgia rheumatica Category: Medical (4) Generalized osteoarthritis of multiple sites: Code(s): M15.9 - Polyosteoarthritis, unspecified Category: Medical (5) Seronegative rheumatoid arthritis: Code(s): M06.00 - Rheumatoid arthritis without rheumatoid factor, unspecified site Category: Medical Plan #Presumed PMR with good control of symptoms with current prednisone dose. The patient is currently on 2.5 b.i.d. without return of symptoms. We will reduce his prednisone to 2.5 in the morning and 1 mg in the. If he has trouble at that dose he should call us for dosage adjustment. We discussed at length that his his PMR continues to be intractable, it is possible is seronegative rheumatoid arthritis and so we can do a trial with on hand RINVOQ 15 mg QD for 28 days. He will take Prednisone 5 mg BID for 7 days while RINVOQ onboards then he will stop the Prednisone for the duration of RINVOQ. If this proves to be therapeutic we will start him on HUMIRA. Patient agrees with this plan. He has had history of Blood clots but is on Eloquis and will remain it for the time being and wants to take the risk to try the RINVOQ. He understands the risk as explained for MCAE with JAKs. . #Flexor tenosynovitis: He again is symptomatic flexor tenosynovitis involving the left 2nd and 5th fingers. He is scheduled for upcoming surgery to be had November [address] Lenz at [facility] #Generalized OA: He is generalized arthritis is helped by diclofenac and clebrex but it wreak havoc on his stomach. #Gout:The patient denies gout flares within the last year. He will continue on allopurinol 300 mg q.d. Follow-up 5 weeks I spent 20 minutes reviewing chart, evaluating and educating and discussing with the patient and documenting Medications: New upadacitinib ER (Rinvoq) Do not Dispense SAMPLE SAMPLE lOT# [id number] exp 03/07/25 15 mg PO DAILY 28 tabs 0RF M06.00 - Rheumatoid arthritis without rheumatoid factor, unspecified site Coding Level of Care Code Est Pt Level 3 (99897) Complex EM visit Add On G2211 Diagnoses Flexor tenosynovitis of finger M65.9 Idiopathic chronic gout of multiple sites without tophus M1A.09X0 Gout site: multiple sites Gout etiology: idiopathic Chronicity: chronic Presence of tophus: without tophus PMR (polymyalgia rheumatica) M35.3 Generalized osteoarthritis of multiple sites M15.9 Seronegative rheumatoid arthritis M06.00
[2023-11-13 14:40] VITALS: BP 122/86; PULSE 74; O2SAT 96; BMI 24.9
== END 2023-11-13 15:35 | disposition home or self-care (01) ==
PROVIDERS: PCP Pediatrics; Visit Provider Nurse Practitioner Family
DX: M65.9 Synovitis and tenosynovitis, unspecified (principal); M1A.09X0 Idiopathic chronic gout, multiple sites, without tophus (tophi); M35.3 Polymyalgia rheumatica; M15.9 Polyosteoarthritis, unspecified; M06.00 Rheumatoid arthritis without rheumatoid factor, unspecified site
CPT/HCPCS: 99213; G2211

== ENCOUNTER → 2023-11-13 14:28 | Outpatient (BNVA) | payer MEDICARE, SELFPAY | PROVIDERS: PCP Pediatrics; Visit Provider Nurse Practitioner Family | DX: M65.9 Synovitis and tenosynovitis, unspecified (principal); M1A.09X0 Idiopathic chronic gout, multiple sites, without tophus (tophi); M35.3 Polymyalgia rheumatica; M15.9 Polyosteoarthritis, unspecified; M06.00 Rheumatoid arthritis without rheumatoid factor, unspecified site | CPT/HCPCS: 99212 ==

== ENCOUNTER 2023-12-19 08:05 | Outpatient (AMB) | payer MEDICARE, SELFPAY ==
[2023-12-19 08:13] VITALS: BP 138/84; PULSE 66; O2SAT 97; BMI 24.5
--- NOTE | 2023-12-19 08:13 | A.OFFVIS_ITS ---
Vital Signs 12/19/23 08:13 Height 5 ft 10 in Weight 171 lb 1.259 oz BMI 24.5 BP 138/84 Blood Pressure Location Rt brachial Position Sitting Pulse 66 Pulse Source Pulse Oximeter Pulse Oximetry (%) 97 Oxygen Delivery Method Room Air Intake Visit Reasons: Rinvoq trial Intake Note: Angel is a 68 year old male who presents to the office today for a follow up rinvoq trial. Allergies No Known Allergies Allergy (Verified 12/19/23 08:13) Medication List - Last Reconciled 12/19/23 by Orlando Novoa MD allopurinol 300 mg PO DAILY amlodipine 2.5 mg PO DAILY apixaban (Eliquis) 2.5 mg PO BID benazepril 40 mg PO DAILY celecoxib 200 mg PO DAILY diclofenac sodium 75 mg PO BID pravastatin 80 mg PO BEDTIME prednisone 1 mg PO BID upadacitinib ER (Rinvoq) 15 mg PO DAILY HPI Comments Details: This is a 68-year-old male with PMR who returns for follow-up. He states that he was diagnosed with PMR on 2009. He was on prednisone intermittently for many years. He was completely off prednisone around 2017 and it was restarted 2020. He states that generally he takes about 5 mg of prednisone daily in divided doses. Currently he has been taking prednisone 1 mg Twice daily. He took Rinvoq for a total of 2 weeks and discontinued it due to concern about side effects such as blood clots, cancers. Today he is feeling very well. He continues to have intermittent episodes of pain and stiffness in his shoulders, hips. But he has been feeling good lately [facility] Medical History (Updated 12/19/23 @ 10:22 by Orlando Novoa MD) Generalized osteoarthritis of multiple sites PMR (polymyalgia rheumatica) History of rectal cancer History of pulmonary embolus (PE) Surgical History History of melanoma excision Family History Mother Breast cancer Father Stroke Social History Alcohol intake: current Alcohol intake frequency: 0-2 drinks per day Alcohol type: beer Patient Tobacco Use Status: Former Tobacco user Review of Systems [facility] Reports arthralgias and Reports stiffness Physical Exam Vital Signs: Last Vital Signs Pulse 66 12/19/23 08:13 BP 138/84 12/19/23 08:13 Pulse Ox 97 12/19/23 08:13 Oxygen Delivery Method Room Air 12/19/23 08:13 BMI result Body Mass Index 24.5 Const General: cooperative, healthy appearing and comfortable Nutritional Appearance: average body habitus Orientation/consciousness: patient oriented x3 Limitations: no limitations HEENT Head: Yes normocephalic and Yes atraumatic Mouth: oropharynx normal and moist mucous membranes Resp Effort & Inspection: normal respiratory effort and able to speak in complete sentences Cardio Rate: regular rate Skin General skin exam: no rashes or lesions noted Neuro General: patient oriented x3 Extrem Other: No active synovitis noted Normal range of motion of shoulders Negative rotator cuff provocative maneuvers bilaterally Negative Speed's test bilaterally No hip pain with manipulation No knee pain with flexion-extension No ankle tenderness or swelling bilaterally Assessment & Plan Assessment & Plan (1) PMR (polymyalgia rheumatica): Comment: On prednisone in 2014 - tapered off, restarted 11/2022 Code(s): M35.3 - Polymyalgia rheumatica Category: Medical Plan: This is a 68-year-old male with history of PMR who presents for follow-up. This is his 1st visit with me. He used to follow-up with Belkis Bailey. Patient has been taking Rinvoq for the past 2 weeks but has multiple concerns about it given his history of PE as well as his history of cancer. Does not want to continue with it. Will DC Rinvoq at this time. Patient is currently on prednisone 1 mg Twice daily and feels very well. Continues to have intermittent episodes of abrupt onset of shoulder or hip pain and stiffness. Can continue with this current dose. Will continue to monitor clinically. There is some suspicion of seronegative RA. Can consider hydroxychloroquine, but Dr. Garcia has to clear him due to his history of retinitis pigmentosa. Patient read about methotrexate and many c oncerns. Labs before next visit in 3 months (2) Flexor tenosynovitis of finger: Code(s): M65.9 - Synovitis and tenosynovitis, unspecified Category: Medical Plan: Had a couple of trigger finger release procedures a couple of weeks ago (3) Pulmonary embolism: Comment: 04/2023 at [facility] Code(s): I26.99 - Other pulmonary embolism without acute cor pulmonale Category: Medical Qualifiers: Pulmonary embolism type: unspecified Chronicity: chronic Acute cor pulmonale presence: without acute cor pulmonale Qualified Code(s): I27.82 - Chr onic pulmonary embolism (4) Gout: Comment: allopurinol started 2014 Code(s): M10.9 - Gout, unspecified Category: Medical Qualifiers: Gout site: multiple sites Gout etiology: idiopathic Chronicity: chronic Presence of tophus: without tophus Qualified Code(s): M1A.09X0 - Idiopathic chronic gout, multiple sites, without tophus (tophi) Plan: Gout well controlled on current dose of allopurinol 200 mg daily. Check uric acid level before next visit Plan I spent 46 minutes reviewing patient's chart, evaluating patient, ordering diagnostic workup, counseling patient and documenting in the chart Orders: Orders Complete Blood Count Auto Diff 3 Months M06.00 - Rheumatoid arthritis without rheumatoid factor, unspecified site, M35.3 - Polymyalgia rheumatica C Reactive Protein 3 Months M06.00 - Rheumatoid arthritis without rheumatoid factor, unspecified site, M35.3 - Polymyalgia rheumatica Comprehensive Met. Panel 3 Months M06.00 - Rheumatoid arthritis without rheumatoid factor, unspecified site, M35.3 - Polymyalgia rheumatica Erythrocyte Sedimentation Rate 3 Months M06.00 - Rheumatoid arthritis without rheumatoid factor, unspecified site, M35.3 - Polymyalgia rheumatica Uric Acid 3 Months M1A.09X0 - Idiopathic chronic gout, multiple sites, without tophus (tophi) Medications: Changed From prednisone 2.5 mg PO DAILY To prednisone 2.5 mg PO BID 60 tabs 2RF Coding Level of Care Code Est Pt Level 5 (55516) Complex EM visit Add On G2211 Diagnoses PMR (polymyalgia rheumatica) M35.3 Flexor tenosynovitis of finger M65.9 Chronic pulmonary embolism without acute cor pulmonale, unspecified pulmonary embolism type I27.82 Pulmonary embolism type: unspecified Chronicity: chronic Acute cor pulmonale presence: without acute cor pulmonale Idiopathic chronic gout of multiple sites without tophus M1A.09X0 Gout site: multiple sites Gout etiology: idiopathic Chronicity: chronic Presence of tophus: without tophus
== END 2023-12-19 08:56 | disposition home or self-care (01) ==
PROVIDERS: PCP Pediatrics; Visit Provider Student in an Organized Health Care Education/Training Program
DX: M35.3 Polymyalgia rheumatica (principal); M65.9 Synovitis and tenosynovitis, unspecified; I27.82 Chronic pulmonary embolism; M1A.09X0 Idiopathic chronic gout, multiple sites, without tophus (tophi)
CPT/HCPCS: 99215; G2211

== ENCOUNTER → 2023-12-19 08:05 | Outpatient (BNVA) | payer MEDICARE, SELFPAY | PROVIDERS: PCP Pediatrics; Visit Provider Student in an Organized Health Care Education/Training Program | DX: M35.3 Polymyalgia rheumatica (principal); M65.9 Synovitis and tenosynovitis, unspecified; I27.82 Chronic pulmonary embolism; M1A.09X0 Idiopathic chronic gout, multiple sites, without tophus (tophi); Z79.52 Long term (current) use of systemic steroids; Z79.899 Other long term (current) drug therapy | CPT/HCPCS: 99212 ==

== ENCOUNTER 2024-03-10 09:42 | Outpatient (REF) | payer MEDICARE, SELFPAY ==
[2024-03-10 13:18] LABS: MANUAL DIFF FLAG NO
[2024-03-10 13:20] LABS: Basophils Percent Auto 0.5 % (0-2); Eosinophils Absolute Auto 0.1 X10*3/uL (0.0-0.4); Hematocrit 43.6 % (42.0-52.0); Hemoglobin 14.6 g/dl (14.0-18.0); Imm Gran Pct Auto 1.3 % (0.0-0.4); Lymphocytes Absolute Auto 1.1 X10*3/uL (1.2-4.9); Lymphocytes Percent Auto 13.3 % (20-40); Mean Corpuscular HGB Conc 33.5 g/dl (31.0-36.0); Mean Corpuscular Hemoglobin 31.6 pg (27.0-33.0); Mean Corpuscular Volume 94.4 fL (80.0-98.0); Mean Platelet Volume 11.1 fL (9.4-12.4); Monocytes Absolute Auto 0.7 X10*3/uL (0.1-1.2); Monocytes Percent Auto 8.6 % (2-11); Neutrophils Percent Auto 75.3 % (45-73); Platelet Count 175 X10*3/uL (160-400); Red Blood Count 4.62 X10*6/uL (4.60-5.80); Red Cell Distribution Width 13.1 % (11.0-16.0); White Blood Count 7.9 X10*3/uL (4.8-10.8)
[2024-03-10 13:59] LABS: Erythrocyte Sedimentation Rate 2 MM/HR (0-15)
[2024-03-10 14:13] LABS: Alanine Aminotransferase 26 U/L (0-40); Albumin Level 4.2 g/dL (3.5-5.0); Alkaline Phosphatase 49 U/L (39-117); Anion Gap 12 (12-20); Aspartate Amino Transferase 22 U/L (5-37); Bilirubin Total 1.3 mg/dL (0.0-1.0); Blood Urea Nitrogen 13 mg/dL (9-16); C Reactive Protein 0.66 mg/dL (< or = 0.50); Calcium 10.1 mg/dL (8.4-10.2); Carbon Dioxide 28 mmol/L (22-29); Chloride 102 mmol/L (96-108); Estimated Glomerular Filt Rate > 60; Glucose Random 92 mg/dL (60-115); Potassium 3.9 mmol/L (3.3-5.1); Sodium 138 mmol/L (135-145); Total Protein 6.6 g/dL (6.5-8.0); Uric Acid 6.8 mg/dL (3.4-7.0)
== END 2024-03-10 09:43 | disposition home or self-care (01) ==
LOC: HO.10HDL 09:42
PROVIDERS: Visit Provider Student in an Organized Health Care Education/Training Program
DX: M1A.09X0 Idiopathic chronic gout, multiple sites, without tophus (tophi) (principal); M06.00 Rheumatoid arthritis without rheumatoid factor, unspecified site; M35.3 Polymyalgia rheumatica
CPT/HCPCS: 36415; 80053; 84550; 85025; 85652; 86140

== ENCOUNTER 2024-03-17 07:58 | Outpatient (AMB) | payer MEDICARE, SELFPAY ==
--- NOTE | 2024-03-17 08:00 | A.OFFVIS_ITS ---
Vital Signs 03/17/24 08:03 Height 5 ft 10 in Weight 171 lb 15.369 oz BMI 24.7 BP 124/80 Blood Pressure Location Rt brachial Position Sitting Pulse 61 Pulse Source Pulse Oximeter Pulse Oximetry (%) 97 Oxygen Delivery Method Room Air Intake Visit Reasons: PMR Intake Note: Patient presents for PMR. Allergies No Known Allergies Allergy (Verified 03/17/24 08:02) Medication List - Last Reconciled 03/17/24 by Orlando Novoa MD allopurinol 300 mg PO DAILY amlodipine 2.5 mg PO DAILY apixaban (Eliquis) 2.5 mg PO BID benazepril 40 mg PO DAILY celecoxib 200 mg PO DAILY diclofenac sodium 75 mg PO BID pravastatin 80 mg PO BEDTIME prednisone 2.5 mg PO BID prednisone 1 mg PO BID HPI Comments Details: This is a 68-year-old male with PMR and gout who returns for follow-up. Patient is self lowered his allopurinol to 300 mg daily. Has not had any gout flare- ups. He lowered his prednisone to 3.5 mg daily, 1 mg in the morning and 2.5 mg at night. He states that 3 weeks ago he started having some pain and stiffness in his left 2nd and 3rd PIP is. He was evaluated by Dr. Lenz yesterday and received an injection in both fingers, it has not helped yet. He got the COVID vaccine last Friday [facility] Medical History Generalized osteoarthritis of multiple sites PMR (polymyalgia rheumatica) History of rectal cancer History of pulmonary embolus (PE) Surgical History History of melanoma excision Family History Mother Breast cancer Father Stroke Social History Alcohol intake: current Alcohol intake frequency: 0-2 drinks per day Alcohol type: beer Patient Tobacco Use Status: Former Tobacco user Review of Systems [facility] Reports arthralgias and Reports stiffness Physical Exam Vital Signs: Last Vital Signs Pulse 61 03/17/24 08:03 BP 124/80 03/17/24 08:03 Pulse Ox 97 03/17/24 08:03 Oxygen Delivery Method Room Air 03/17/24 08:03 BMI result Body Mass Index 24.7 Const General: cooperative, healthy appearing and comfortable Nutritional Appearance: average body habitus Orientation/consciousness: patient oriented x3 Limitations: no limitations HEENT Head: Yes normocephalic and Yes atraumatic Mouth: oropharynx normal and moist mucous membranes Resp Effort & Inspection: normal respiratory effort and able to speak in complete sentences Cardio Rate: regular rate Skin General skin exam: no rashes or lesions noted Neuro General: patient oriented x3 Extrem Other: No active synovitis noted Normal range of motion of shoulders Negative rotator cuff provocative maneuvers bilaterally Negative Speed's test bilaterally No hip pain with manipulation No knee pain with flexion-extension No ankle tenderness or swelling bilaterally Assessment & Plan Assessment & Plan (1) PMR (polymyalgia rheumatica): Comment: On prednisone in 2014 - tapered off, restarted 11/2022 Code(s): M35.3 - Polymyalgia rheumatica Category: Medical Plan: This is a 68-year-old male with PMR who presents for follow-up. Patient lowered his prednisone from 5 mg daily to 3.5 mg daily. Has been feeling well except for the last 3 weeks when he started having some nocturnal pain in his left 2nd and 3rd PIPs. Saw Dr. Lenz yesterday and received injections in both PIPs. Recent CRP mildly elevated, 1 day after COVID and flu vaccination Continue prednisone 3.5 mg daily for about 4 weeks then start tapering further. Follow-up in 3 months, additional DMARDs can be discussed. Advised patient to discuss with Dr. Garcia whether hydroxychloroquine can be considered (2) Gout: Comment: allopurinol started 2014 Code(s): M10.9 - Gout, unspecified Category: Medical Qualifiers: Gout site: multiple sites Gout etiology: idiopathic Chronicity: chronic Presence of tophus: without tophus Qualified Code(s): M1A.09X0 - Idiopathic chronic gout, multiple sites, without tophus (tophi) Plan: Patient self lowered his allopurinol from 400 mg daily to 200 mg daily. Recent uric acid level 6.8 mg/dL. Has not had any gout flare-ups. Advised patient that the target uric acid level is less than 6 and he should increase the allopurinol back to 400 mg daily Plan I spent 26 minutes reviewing patient's chart, evaluating patient, ordering diagnostic workup, counseling patient and documenting in the chart Orders: Orders Complete Blood Count Auto Diff 3 Months M35.3 - Polymyalgia rheumatica Comprehensive Met. Panel 3 Months M35.3 - Polymyalgia rheumatica C Reactive Protein 3 Months M35.3 - Polymyalgia rheumatica Erythrocyte Sedimentation Rate 3 Months M35.3 - Polymyalgia rheumatica Uric Acid 3 Months M1A.09X0 - Idiopathic chronic gout, multiple sites, without tophus (tophi) Medications: New allopurinol Combine with 300 mg tablet for a total of 400 mg daily 100 mg PO DAILY 90 tabs 0RF Changed From prednisone 1 mg PO BID To prednisone 2.5 mg PO BID 180 tabs 0RF From prednisone 2.5 mg PO BID 60 tabs 2RF To prednisone 1 mg PO BID 180 tabs 1RF Coding Level of Care Code Est Pt Level 4 (07913) Diagnoses PMR (polymyalgia rheumatica) M35.3 Idiopathic chronic gout of multiple sites without tophus M1A.09X0 Gout site: multiple sites Gout etiology: idiopathic Chronicity: chronic Presence of tophus: without tophus
[2024-03-17 08:03] VITALS: BP 124/80; PULSE 61; O2SAT 97; BMI 24.7
== END 2024-03-17 08:27 | disposition home or self-care (01) ==
PROVIDERS: PCP Pediatrics; Visit Provider Student in an Organized Health Care Education/Training Program
DX: M35.3 Polymyalgia rheumatica (principal); M1A.09X0 Idiopathic chronic gout, multiple sites, without tophus (tophi)
CPT/HCPCS: 99214

== ENCOUNTER → 2024-03-17 07:58 | Outpatient (BNVA) | payer MEDICARE, SELFPAY | PROVIDERS: PCP Pediatrics; Visit Provider Student in an Organized Health Care Education/Training Program | DX: M35.3 Polymyalgia rheumatica (principal); M1A.09X0 Idiopathic chronic gout, multiple sites, without tophus (tophi) | CPT/HCPCS: 99212 ==

== ENCOUNTER 2024-06-21 07:53 | Outpatient (REF) | payer MEDICARE, SELFPAY ==
--- OUTSIDE RECORDS SUMMARY | 2024-06-21 07:55 | XMS_ITS ---
Author Name [facility] Organization Unknown History of Medication Use Medication Directions Dispensed Refills Start Date End Date Stat prednisone 1 mg tablet 10/12/2023 active Eliquis DVT-PE Treatment 30-Day Starter 5 mg (74 tablets) in dose pack TAKE 1 TABLET BY MOUTH DIRECTED 10/12/2023 active Eliquis 5 mg tablet 10/12/2023 a ctive prednisone 5 mg tablet 01/09/2023 active allopurinol 100 mg tablet 01/09/2023 active benazepril 40 mg tablet 01/09/2023 active pravastatin 80 mg tablet 12/27/2022 active prednisone 5 mg tablet 12/27/2022 active allopurinol 100 mg tablet 12/27/2022 active diclofenac sodium 75 mg tablet,delayed release 01/09/2023 active allopurinol 300 mg tablet 12/27/2022 active lidocaine (PF) 100 mg/5 mL (2 %) injection syringe 01/09/2023 active prednisone 20 mg tablet 01/09/2023 active amlodipine 2.5 mg tablet 12/27/2022 active allopurinol 100 mg tablet 12/27/2022 active diclofenac sodium 75 mg tablet,delayed release 01/09/2023 active allopurinol 300 mg tablet 01/09/2023 active pravastatin 80 mg tablet 01/09/2023 active benazepril 40 mg tablet 12/27/2022 active prednisone 2.5 mg tablet 03/09/2023 active lidocaine (PF) 100 mg/5 mL (2 %) injection syringe Take 4 mL by injection route. 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
[2024-06-21 10:19] LABS: MANUAL DIFF FLAG NO
[2024-06-21 10:32] LABS: Basophils Absolute Auto 0.1 X10*3/uL (0.0-0.2); Basophils Percent Auto 0.7 % (0-2); Eosinophils Absolute Auto 0.2 X10*3/uL (0.0-0.4); Eosinophils Percent Auto 2.1 % (0-4); Hematocrit 45.7 % (42.0-52.0); Hemoglobin 15.2 g/dl (14.0-18.0); Imm Gran Pct Auto 1.2 % (0.0-0.4); Lymphocytes Absolute Auto 3.2 X10*3/uL (1.2-4.9); Lymphocytes Percent Auto 38.6 % (20-40); Mean Corpuscular HGB Conc 33.3 g/dl (31.0-36.0); Mean Corpuscular Hemoglobin 30.8 pg (27.0-33.0); Mean Corpuscular Volume 92.5 fL (80.0-98.0); Monocytes Absolute Auto 0.7 X10*3/uL (0.1-1.2); Monocytes Percent Auto 8.2 % (2-11); Neutrophils Absolute Auto 4.1 x10*3/uL (2.0-8.3); Neutrophils Percent Auto 49.2 % (45-73); Platelet Count 194 X10*3/uL (160-400); Red Blood Count 4.94 X10*6/uL (4.60-5.80); White Blood Count 8.2 X10*3/uL (4.8-10.8)
[2024-06-21 11:13] LABS: Erythrocyte Sedimentation Rate 4 MM/HR (0-15)
[2024-06-21 11:36] LABS: Albumin Level 4.1 g/dL (3.5-5.0); Alkaline Phosphatase 50 U/L (39-117); Anion Gap 9 (12-20); Aspartate Amino Transferase 29 U/L (5-37); Bilirubin Total 0.8 mg/dL (0.0-1.0); Blood Urea Nitrogen 15 mg/dL (9-16); Calcium 10.1 mg/dL (8.4-10.2); Carbon Dioxide 27 mmol/L (22-29); Chloride 108 mmol/L (96-108); Estimated Glomerular Filt Rate > 60; Glucose Random 81 mg/dL (60-115); Potassium 3.6 mmol/L (3.3-5.1); Sodium 140 mmol/L (135-145); Total Protein 6.5 g/dL (6.5-8.0)
[2024-06-21 12:15] LABS: Alanine Aminotransferase 41 U/L (0-40); Uric Acid 3.5 mg/dL (3.4-7.0)
== END 2024-06-21 07:54 | disposition home or self-care (01) ==
LOC: HO.10HDL 07:53
PROVIDERS: Visit Provider Student in an Organized Health Care Education/Training Program
DX: M1A.09X0 Idiopathic chronic gout, multiple sites, without tophus (tophi) (principal); M35.3 Polymyalgia rheumatica
CPT/HCPCS: 36415; 80053; 84550; 85025; 85652; 86140

== ENCOUNTER 2024-06-23 08:05 | Outpatient (AMB) | payer MEDICARE, SELFPAY ==
--- NOTE | 2024-06-23 08:11 | MHC.OFFVIS ---
Vital Signs 06/23/24 08:15 06/23/24 08:18 Height 5 ft 10 in Weight 171 lb 1.259 oz BMI 24.5 BP 124/80 Blood Pressure Location Rt brachial Position Sitting Pulse 70 Pulse Source Pulse Oximeter Pulse Oximetry (%) 97 Oxygen Delivery Method Room Air Intake Visit Reasons: PMR Intake Note: Patient presents for PMR. Allergies No Known Allergies Allergy (Verified 06/23/24 08:14) Medication List - Last Reconciled 06/23/24 by Orlando Novoa MD allopurinol 300 mg PO DAILY allopurinol 100 mg PO DAILY amlodipine 2.5 mg PO DAILY apixaban (Eliquis) 2.5 mg PO BID benazepril 40 mg PO DAILY celecoxib 200 mg PO DAILY diclofenac sodium 75 mg PO BID prednisone 2.5 mg PO BID prednisone 1 mg PO BID rosuvastatin 40 mg PO DAILY HPI Comments Details: This is a 68-year-old male with PMR and gout who returns for follow-up. P he is on allopurinol 400 mg a day and prednisone 1 mg in the morning and 2.5 mg at night. 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 States that he continues to have intermittent pain and swelling of his hands, usually at night and in the morning, morning stiffness lasts 30 minutes. States that his left 4th finger has been triggering recently and will be going to Dr. Lenz another injection if it gets worse. Has been doing well otherwise [facility] Medical History Generalized osteoarthritis of multiple sites PMR (polymyalgia rheumatica) History of rectal cancer History of pulmonary embolus (PE) Surgical History History of melanoma excision Family History Mother Breast cancer Father Stroke Social History Alcohol intake: current Alcohol intake frequency: 0-2 drinks per day Alcohol type: beer Patient Tobacco Use Status: Former Tobacco user Review of Systems [facility] Reports arthralgias, Reports joint swelling and Reports stiffness Physical Exam Vital Signs: Last Vital Signs Pulse 70 06/23/24 08:18 BP 124/80 06/23/24 08:15 Pulse Ox 97 06/23/24 08:18 Oxygen Delivery Method Room Air 06/23/24 08:18 BMI result Body Mass Index 24.5 Const General: cooperative, healthy appearing and comfortable Nutritional Appearance: average body habitus Orientation/consciousness: patient oriented x3 Limitations: no limitations HEENT Head: Yes normocephalic and Yes atraumatic Mouth: oropharynx normal and moist mucous membranes Resp Effort & Inspection: normal respiratory effort and able to speak in complete sentences Cardio Rate: regular rate Skin General skin exam: no rashes or lesions noted Neuro General: patient oriented x3 Extrem Other: There is subtle swelling of the left index finger, with prominent Heberden and Iris's nodes no tenderness to palpation Normal bilateral hand motion picture camera operator strength negative MCP squeeze test bilaterally Normal range of motion of shoulders Negative rotator cuff provocative maneuvers bilaterally Negative Speed's test bilaterally No hip pain with manipulation No trochanteric bursa area tenderness bilaterally No knee pain with flexion-extension No ankle tenderness or swelling bilaterally Assessment & Plan Assessment & Plan (1) PMR (polymyalgia rheumatica): Comment: On prednisone in 2014 - tapered off, restarted 11/2022 Code(s): M35.3 - Polymyalgia rheumatica Category: Medical Plan: This is a 68-year-old male with PMR who presents for follow-up. On prednisone 1 mg in the morning and 2.5 mg at night. Continues to have intermittent swelling of his fingers at night and morning stiffness lasting 30 minutes. On exam I think his symptoms are largely related to bilateral hand osteoarthritis rather than an inflammatory arthritis. Advised patient to lower his prednisone to 1 mg Twice daily, can use Tylenol Arthritis more regularly. Advised patient to take pictures of any swollen joints. Continue to watch patient while prednisone is tapered off, he may have mild seronegative RA Labs before next visit in 3 months (2) Gout: Comment: allopurinol started 2014 Code(s): M10.9 - Gout, unspecified Category: Medical Qualifiers: Gout site: multiple sites Gout etiology: idiopathic Chronicity: chronic Presence of tophus: without tophus Qualified Code(s): M1A.09X0 - Idiopathic chronic gout, multiple sites, without tophus (tophi) Plan: Gout well controlled, uric acid level at target 3.5 mg/dL. Continue with allopurinol 400 mg daily (3) Elevated ALT measurement: Code(s): R74.01 - Elevation of levels of liver transaminase levels Category: Medical Plan: Patient drinks 2 beers daily. Advised patient to cut down Plan I spent 26 minutes reviewing patient's chart, evaluating patient, ordering diagnostic workup, counseling patient and documenting in the chart Orders: Orders C Reactive Protein 3 Months M35.3 - Polymyalgia rheumatica Erythrocyte Sedimentation Rate 3 Months M35.3 - Polymyalgia rheumatica Complete Blood Count Auto Diff 3 Months M35.3 - Polymyalgia rheumatica Comprehensive Met. Panel 3 Months M35.3 - Polymyalgia rheumatica Uric Acid 3 Months M1A.09X0 - Idiopathic chronic gout, multiple sites, without tophus (tophi) Coding Level of Care Code Est Pt Level 4 (91253) Diagnoses PMR (polymyalgia rheumatica) M35.3 Idiopathic chronic gout of multiple sites without tophus M1A.09X0 Gout site: multiple sites Gout etiology: idiopathic Chronicity: chronic Presence of tophus: without tophus Elevated ALT measurement R74.01
[2024-06-23 08:15] VITALS: BP 124/80; BMI 24.5
[2024-06-23 08:18] VITALS: PULSE 70; O2SAT 97
== END 2024-06-23 08:50 | disposition home or self-care (01) ==
PROVIDERS: Visit Provider Student in an Organized Health Care Education/Training Program
DX: M35.3 Polymyalgia rheumatica (principal); M1A.09X0 Idiopathic chronic gout, multiple sites, without tophus (tophi); R74.01 Elevation of levels of liver transaminase levels
CPT/HCPCS: 99214

== ENCOUNTER → 2024-06-23 08:05 | Outpatient (BNVA) | payer MEDICARE, SELFPAY | PROVIDERS: Visit Provider Student in an Organized Health Care Education/Training Program | DX: M35.3 Polymyalgia rheumatica (principal); M1A.09X0 Idiopathic chronic gout, multiple sites, without tophus (tophi); R74.01 Elevation of levels of liver transaminase levels | CPT/HCPCS: 99212 ==

== ENCOUNTER 2024-09-29 09:37 | Outpatient (REF) | payer MEDICARE, SELFPAY ==
--- OUTSIDE RECORDS SUMMARY | 2024-09-29 10:46 | XMS_ITS | Encounter Summary ---
Author Organization [facility] Address [address] [place] [address] Care Team Providers Care Stencil Sprayer Name Role Phone Casimiro Cat MD Primary Care Provider [phone]- [phone] Stephanie Espinosa Primary Care Provider Unav ailable Encounter Details Date Type Department Care Team Description 12/03/2017 Pt. Non Urgent Medical Question Adult Medicine - [address] [address] Epifanio Carl PA Social History Tobacco Use Types Packs/Day Years Used Date Smoking Tobacco: Former Smokeless Tobacco: Never Alcohol Use Standard Drinks/Week Comments Yes 0 (1 standard drink = 0.6 oz pur e alcohol) 2+ beers per day Sex Assigned at Date Recorded Not on file Job Start Date Occupation Industry Not on file Not on file Not on file documented as of this encounter Progress Notes * Jacinta Roberson L.P.N. - 12/03/2017 2:15 PM EDTFrom: Angel Clay To: Epifanio Carl PA-C Sent: 12/03/2017 1:34 PM EDT Subject: PMR Thumb ?? Hi Niranjan, I have been having an issue with my right thumb being in a LOT of pain. It has been almost 3 weeks and is not any better. I don't think it is a bone issue rather Arthritis like symptoms. 10 days ago I took 30 mg prednisone x 2 days then a 3 day taper. After 2 days the pain was gone.. 5 dayslater the pain is back.. I almost cant play my guitar do to the pain.. I would like to see you, getan X Ray and a follow up with Dr. Villanueva I think would be in order.. Please call me at [phone] you can .. Thanks Orestes Clay documented in this encounter Plan of Treatment Not on file documented as of this encounter Visit Diagnoses Not on filedocumented in this encounter Care Teams Stencil Sprayer Relationship Specialty Start Date End Date Casimiro Cat MD [address] [place] [address] PCP - General Internal Medicine 09/13/11 03/15/24 Stephanie Espinosa PA [address] [place] [address] PCP - General Medical Physician Precision Assembly Inspector 03/16/24 documented as of this encounter
--- OUTSIDE RECORDS SUMMARY | 2024-09-29 10:46 | XMS_ITS | Encounter Summary ---
Author Organization [facility] Address [address] [place] [address] Care Team Providers Care Emblem Fuser Tender Name Role Phone Casimiro Cat MD Primary Care Provider [phone]- [phone] Stephanie Espinosa Primary Care Provider Unav ailable Reason for Visit * Reason Onset Date Comments Faxed Refill 02/26/2019 Encounter Details Date Type Department Care Team Description 02/26/2019 Refill Adult Medicine - [place] [address] [place] [address] Casimiro Cat MD [address] [place] [address] Faxed Refill Social History Tobacco Use Types Packs/Day Years Used Date Smoking Tobacco: Former Smokeless Tobacco: Never Alcohol Use Standard Drinks/Week Comments Yes 0 (1 standard drink = 0.6 oz pur e alcohol) 2+ beers per day Sex Assigned at Date Recorded Not on file Job Start Date Occupation Industry Not on file Not on file Not on file documented as of this encounter Miscellaneous Notes * Telephone Encounter - Citlalli Thomas - 02/26/2019 1:14 PM EDT Patient would like script to be: E-PRESCRIBED/FAXED TO PHARMACY WHEN WAS THE PATIENT'S LAST APPOINTMENT IN ADULT MEDICINE? 12/25 WHEN WAS THE LAST TIME THE PATIENT SAW THEIR PCP? Same as above Does patient have an upcoming appointment? No- patient refused to book appointment (THE MEDICATION REQUESTED IS ON THE MED LIST ABOVE) All of the medications requested were on the CURRENT MEDS list Did you check the Pharmacy information above?: YES Patient wants: 90 -day supply Is this a mail order prescription request ? NO If the refill is from a FAXED refill request what is the RX # listed on the fax? N/A Patients current insurance carrier is: Payor: [facility] / Plan: [facility] MED[facility] COMPLETE $15/$45 [facility] [id number] / Product Type: PPO [id number] documented in this encounter Plan of Treatment Not on file documented as of this encounter Visit Diagnoses Not on filedocumented in this encounter Care Teams Emblem Fuser Tender Relationship Specialty Start Date End Date Casimiro Cat MD [address] [place] [address] PCP - General Internal Medicine 09/13/11 03/15/24 Stephanie Espinosa PA [address] [place] [address] PCP - General Medical Physician License Clerk 03/16/24 documented as of this encounter
--- OUTSIDE RECORDS SUMMARY | 2024-09-29 10:46 | XMS_ITS | Encounter Summary ---
Author Organization [facility] Address [address] [place] [address] Care Team Providers Care Supervisor Plasma Name Role Phone Casimiro Cat MD Primary Care Provider [phone]- [phone] Stephanie Espinosa Primary Care Provider Unav ailable Encounter Details Date Type Department Care Team Description 02/23/2015 Pt. Non Urgent Medical Question Adult Medicine - [address] [address] Epifanio Carl PA Social History Tobacco Use Types Packs/Day Years Used Date Smoking Tobacco: Former Smokeless Tobacco: Never Alcohol Use Standard Drinks/Week Comments Yes 0 (1 standard drink = 0.6 oz pur e alcohol) 2 beers per day Sex Assigned at Date Recorded Not on file Job Start Date Occupation Industry Not on file Not on file Not on file documented as of this encounter Progress Notes * Yahaira Medeiros M.A. - 02/23/2015 2:25 PM EDTFrom: Angel Clay To: Epifanio Carl PA-C Sent: 02/23/2015 2:23 PM EDT Subject: ER Results Hi Dr. Carl, Just a quick thank you for you care and concerns during our visit on Friday. I was in the ER at [facility] at 2:30 and did nor see a Doctor until after 6pm. X-rays on chest and shoulder showed all was good.. No chance od clotting witch was good.. Sent home with Dexamethasone 4mg 3 times a day for 4 days.. Percosets for pain and I am to se my Ortho Dr RAMOS..Going to see Didier Cavazos at [facility] on Friday.. Thanks once again. Orestes Clay documented in this encounter Plan of Treatment Not on file documented as of this encounter Visit Diagnoses Not on filedocumented in this encounter Care Teams Supervisor Plasma Relationship Specialty Start Date End Date Casimiro Cat MD [address] [place] [address] PCP - General Internal Medicine 09/13/11 03/15/24 Stephanie Espinosa PA [address] [place] [address] PCP - General Medical Physician Email Administrator 03/16/24 documented as of this encounter
--- OUTSIDE RECORDS SUMMARY | 2024-09-29 10:46 | XMS_ITS | Encounter Summary ---
Author Organization [facility] Address [address] [place] [address] Care Team Providers Care Executive Coordinator Name Role Phone Casimiro Cat MD Primary Care Provider [phone]- [phone] Stephanie Espinosa Primary Care Provider Unav ailable Encounter Details Date Type Department Care Team Description 03/25/2022 Pt. Non Urgent Medical Question Adult Medicine - [place] [address] [place] [address] Casimiro Cat MD [address] [place] [address] Social History Tobacco Use Types Packs/Day Years Used Date Smoking Tobacco: Former Smokeless Tobacco: Never Alcohol Use Standard Drinks/Week Comments Yes 0 (1 standard drink = 0.6 oz pur e alcohol) 3+ beers per day Sex Assigned at Date Recorded Not on file Job Start Date Occupation Industry Not on file Not on file Not on file COVID-19 Exposure Response Date Recorded In the last 10 days, have yo u been in contact with someone who was confirmed or suspected to have Coronavirus/COVID-19? No / Unsure 03/07/2022 8:49 AM EDT documented as of this encounter Miscellaneous Notes * Telephone Encounter - Valerie Roberts M.A. - 03/25/2022 2:29 PM EDTFrom: Angel Clay To: Dino Cat Sent: 03/25/2022 2:25 PM EDT Subject: Covid & Flu Shot Good Afternoon, Just had my 2nd covid 19 Booster shot & a Flu Shot Yesterday 03/24/2022 at [facility] documented in this encounter Plan of Treatment Not on file documented as of this encounter Visit Diagnoses Not on filedocumented in this encounter Care Teams Executive Coordinator Relationship Specialty Start Date End Date Casimiro Cat MD [address] [place] [address] PCP - General Internal Medicine 09/13/11 03/15/24 Stephanie Espinosa PA [address] [place] [address] PCP - General Medical Physician Day Haul Youth Supervisor 03/16/24 documented as of this encounter
--- OUTSIDE RECORDS SUMMARY | 2024-09-29 10:46 | XMS_ITS | Encounter Summary ---
Author Organization [facility] Address [address] [place] [address] Care Team Providers Care Grades 9 Through 12 Teacher Name Role Phone Casimiro Cat MD Primary Care Provider [phone] Stephanie Espinosa Primary Care Provider Unav ailable Encounter Details Date Type Department Care Team Description 12/13/2015 Pt. Non Urgent Medical Question Rheumatology - [address] [address] Jair Bowling MD Social History Tobacco Use Types Packs/Day Years [...] as of this encounter Progress Notes * Kerri Schwartz L.P.N. - 12/14/2015 8:02 AM EDTFrom: Angel Clay To: Jair Bowling MD Sent: 12/13/2015 8:33 PM EDT Subject: Prednisone It has been almost a month @5mg /day and would like to go to 2.5mg/day for the next month or so. Please let me know your thoughts, as I have been feeling great and would like to cut back on the Prednisone. Orestes Clay [phone] documented in this encounter Plan of Treatment Not on file documented as of this encounter Visit Diagnoses Not on filedocumented in this encounter Care Teams Grades 9 Through 12 Teacher Relationship Specialty Start Date End Date Casimiro Cat MD [address] [place] [address] PCP - General Internal Medicine 09/13/11 03/15/24 Stephanie Espinosa PA [address] [place] [address] PCP - General Medical Physician Perfect Bind Machine Operator 03/16/24 documented as of this encounter
--- OUTSIDE RECORDS SUMMARY | 2024-09-29 10:46 | XMS_ITS | Encounter Summary ---
Author Organization [facility] Address [address] [place] [address] Care Team Providers Care Technical Agronomist Name Role Phone Casimiro Cat MD Primary Care Provider [phone]- [phone] Stephanie Espinosa Primary Care Provider Unav ailable Encounter Details Date Type Department Care Team Description 10/03/2016 [facility] [address] [place] [address] Abstract, Provider Social History Tobacco Use Types Packs/Day Years Used Date Smoking Tobacco: Former Smokeless Tobacco: Never Alcohol Use Standard Drinks/Week Comments Yes 0 (1 standard drink = 0.6 oz pur e alcohol) 2 beers per day Sex Assigned at Date Recorded Not on file Job Start Date Occupation Industry Not on file Not on file Not on file documented as of this encounter Plan of Treatment Not on file documented as of this encounter Procedures Procedure Name Priority Date/Time Associated Diagnosis Comments OUTSIDE CT Routine 09/26/2016 documented in this encounter Results * OUTSIDE CT (09/26/2016) Provider Abstract RADIOLOGY documented in this encounter Visit Diagnoses Not on filedocumented in this encounter Care Teams Technical Agronomist Relationship Specialty Start Date End Date Casimiro Cat MD [address] [place], [place] [id number] PCP - General Internal Medicine 09/13/11 03/15/24 Stephanie Espinosa PA [address] [place] [address] PCP - General Medical Physician Software Development Leader 03/16/24 documented as of this encounter
--- OUTSIDE RECORDS SUMMARY | 2024-09-29 10:46 | XMS_ITS | Encounter Summary ---
Author Organization [facility] Address [address] [place] [address] Care Team Providers Care Director Operating Name Role Phone Casimiro Cat MD Primary Care Provider +1- [phone] Stephanie Espinosa Primary Care Provider Unav ailable Encounter Details Date Type Department Care Team Description 05/24/2016 Pt. Non Urgent Medical Question Adult Medicine [address] [address] Epifanio Carl PA Social History Tobacco Use [...] as of this encounter Progress Notes * Pily Keller M.A. - 05/24/2016 10:11 AM ESTFrom: Angel Clay To: Epifanio Carl PA-C Sent: 05/24/2016 9:53 AM EST Subject: Test Results Hi Niranjan, Just a couple of questions.. Cholesterol Levels and how to bring them down. (I have family history of high BP & cholesterol ) My diet is good, I am concerned .. So why not a change in my medication to help.. Also Why were the 2 test done on my urine sample ?? Was there any indication they were needed ?? Seems like an unnecessary test . Orestes Clay documented in this encounter Plan of Treatment Not on file documented as of this encounter Visit Diagnoses Not on filedocumented in this encounter Care Teams Director Operating Relationship Specialty Start Date End Date Casimiro Cat MD [address] [place] [address] PCP - General Internal Medicine 09/13/11 03/15/24 Stephanie Espinosa PA [address] [place] [address] PCP - General Medical Physician Dining Room Maid 03/16/24 documented as of this encounter
--- OUTSIDE RECORDS SUMMARY | 2024-09-29 10:46 | XMS_ITS | Encounter Summary ---
Author Organization [facility] Address [address] [place] [address] Care Team Providers Care Adobe Layer Name Role Phone Casimiro Cat MD Primary Care Provider +1- [phone] Stephanie Espinosa Primary Care Provider Unav ailable Encounter Details Date Type Department Care Team Description 04/05/2022 Pt. Non Urgent Medical Question Adult Medicine - [place] [address] [place] [address] Casimiro Cat MD [address] [place] [address] Social History Tobacco Use Types Packs/Day Years [...] suspected to have Coronavirus/COVID-19? No / Unsure 04/08/2022 8:48 AM EDT documented as of this encounter Miscellaneous Notes * Telephone Encounter - Mary Reddy L.P.N. - 04/05/2022 3:20 PM EDT From: Angel Clay To: Dino Cat Sent: 04/05/2022 3:04 PM EDT Subject: Allopurinol 100 mg Just got this email from [facility] WHAT IS GOING ON ??? Reminder: Your order needs approval Order status: Ordered Dear ANGEL, We contacted your doctor for approval of your [facility] order again but have not heard back. Please contact your doctor and ask them to approve your prescription request as soon as possible. This will help speed up the process and prevent your order from being canceled. documented in this encounter Plan of Treatment Not on file documented as of this encounter Visit Diagnoses Not on filedocumented in this encounter Care Teams Adobe Layer Relationship Specialty Start Date End Date Casimiro Cat MD [address] [place] [address] PCP - General Internal Medicine 09/13/11 03/15/24 Stephanie Espinosa PA [address] [place] [address] PCP - General Medical Physician Aegis Operations Specialist 03/16/24 documented as of this encounter
--- OUTSIDE RECORDS SUMMARY | 2024-09-29 10:46 | XMS_ITS | Encounter Summary ---
Author Organization [facility] Address [address] [place] [address] Care Team Providers Care Hub Cutter Name Role Phone Casimiro Cta MD Primary Care Provider +1- [phone] Stephanie Espinosa Primary Care Provider Unav ailable Encounter Details Date Type Department Care Team Description 10/22/2017 French Comber Report Medical Records [address] [place] [address] Luiz Valentino MD Social History Tobacco Use Types Packs/Day [...] on filedocumented in this encounter Care Teams Hub Cutter Relationship Specialty Start Date End Date Casimiro Cat MD [address] [place] [address] PCP - General Internal Medicine 09/13/11 03/15/24 Stephanie Espinosa PA [address] [place] [address] PCP - General Medical Physician Acid Cleaner 03/16/24 documented as of this encounter
--- OUTSIDE RECORDS SUMMARY | 2024-09-29 10:46 | XMS_ITS | Encounter Summary ---
Author Organization [facility] Address [address] [place] [address] Care Team Providers Care Shift Superintendent Caustic Cresylate Name Role Phone Casimiro Cat MD Primary Care Provider +1 [phone] Stephanie Espinosa Primary Care Provider Unav ailable Reason for Visit * Reason Comments E-prescribe Rx Request Encounter Details Date Type Department Care Team Description 07/27/2019 Refill Adult Medicine - [place] [address] [place] [address] Casimiro Cat MD [address] [place], [place] [id number] E-prescribe Rx Request Social History Tobacco Use Types Packs/Day Years [...] encounter Miscellaneous Notes * Telephone Encounter - Alex Karan - 07/28/2019 11:21 AM EST Patient would like script to be: E-PRESCRIBED/FAXED TO PHARMACY WHEN WAS THE PATIENT'S LAST APPOINTMENT IN ADULT MEDICINE? 12/25/18 WHEN WAS THE LAST TIME THE PATIENT SAW THEIR PCP? Same as above Does patient have an upcoming appointment? No[facility] to refill request. Appt due asasp (THE MEDICATION REQUESTED IS ON THE MED LIST ABOVE) All of the medications requested were on the CURRENT MEDS list Did you check the Pharmacy information above?: YES Patient wants: 30 -day supply Is this a mail order prescription request ? YES If the refill is from a FAXED refill request what is the RX # listed on the fax? N/A Patients current insurance carrier is: Payor: [employer] / Plan: [employer] MEDICARE COMPLETE $15/$45 [id number] / Product Type: PPO [id number] * Telephone Encounter - Herminia Harrell M.A. - 07/27/2019 1:50 PM EST Lab Results Component Value Date CHOL 244 05/21/2018 LDL 138 05/21/2018 HDL 57 05/21/2018 TRIG 246 05/21/2018 Last OV 03/15/2019 Next appt. No appt. BSR please schedule a appt for med rev. Please review and sign for medication if appropriate. Herminia Harrell MA Refill Dept. Ext: [phone] Thank You * Telephone Encounter - Chelsea Baer - 07/27/2019 7:12 AM EST Patient would like script to be: E-PRESCRIBED/FAXED TO PHARMACY WHEN WAS THE PATIENT'S LAST APPOINTMENT IN ADULT MEDICINE? 03/15/19 WHEN WAS THE LAST TIME THE PATIENT SAW THEIR PCP? 12/25/18 Does patient have an upcoming appointment? Too early to call pt (THE MEDICATION REQUESTED IS ON THE MED LIST ABOVE) All of the medications requested were on the CURRENT MEDS list Did you check the Pharmacy information above?: YES Patient wants: 30 -day supply Is this a mail order prescription request ? NO If the refill is from a FAXED refill request what is the RX # listed on the fax? N/A Patients current insurance carrier is: Payor: [employer] / Plan: [facility] MEDICARE COMPLETE $15/$45 [id number] / Product Type: PPO [id number] documented in this encounter Plan of Treatment Not on file documented as of this encounter Visit Diagnoses Not on filedocumented in this encounter Care Teams Shift Superintendent Caustic Cresylate Relationship Specialty Start Date End Date Casimiro Cat MD [address] [place] [address] PCP - General Internal Medicine 09/13/11 03/15/24 Stephanie Espinosa PA [address] [place] [address] PCP - General Medical Physician Leather Novelty Parts Cutter 03/16/24 documented as of this encounter
--- OUTSIDE RECORDS SUMMARY | 2024-09-29 10:46 | XMS_ITS | Encounter Summary ---
Author Organization [facility] Address [address] [place] [address] Care Team Providers Care Store Assistant Name Role Phone Casimiro Cat MD Primary Care Provider +1- [phone] Stephanie Espinosa Primary Care Provider Unav ailable Encounter Details Date Type Department Care Team Description 02/27/2015 Container Crane Operator Report Medical Records [address] [place] [address] Pasha Matson Social History Tobacco Use Types Packs/Day Years [...] on filedocumented in this encounter Care Teams Store Assistant Relationship Specialty Start Date End Date Casimiro Cat MD [address] [place], [place] [phone] PCP - General Internal Medicine 09/13/11 03/15/24 Stephanie Espinosa PA [address] [place] [address] PCP - General Medical Physician Track Welder 03/16/24 documented as of this encounter
--- OUTSIDE RECORDS SUMMARY | 2024-09-29 10:46 | XMS_ITS | Encounter Summary ---
Author Organization [facility] Address [address] [place] [address] Care Team Providers Care Territory Representative Name Role Phone Casimiro Cat MD Primary Care Provider +1- [phone] Stephanie Espinosa Primary Care Provider Unav ailable Encounter Details Date Type Department Care Team Description 10/04/2014 Director Of Retail Marketing Report Medical Records [address] [place] [address] Didier Cavazos Social History Tobacco Use Types Packs/Day Years [...] on filedocumented in this encounter Care Teams Territory Representative Relationship Specialty Start Date End Date Casimiro Cat MD [address] [place] [address] PCP - General Internal Medicine 09/13/11 03/15/24 Stephanie Espinosa PA [address] [place] [address] PCP - General Medical Physician Corporate Job Titles 03/16/24 documented as of this encounter
--- OUTSIDE RECORDS SUMMARY | 2024-09-29 10:47 | XMS_ITS | Encounter Summary ---
Author Organization [facility] Address [address] [place] [address] Care Team Providers Care Group Underwriter Name Role Phone Casimiro Cat MD Primary Care Provider +1- [phone] Stephanie Espinosa Primary Care Provider Unav ailable Encounter Details Date Type Department Care Team Description 05/27/2023 Pt. Non Urgent Medical Question Adult Medicine - [place] [address] [place] [address] Casimiro Cat MD [address] [place] [address] Social History Tobacco Use Types Packs/Day Years [...] Telephone Encounter - Valerie Roberts M.A. - 05/27/2023 3:31 PM ESTFrom: Angel Clay To: Dino Cat Sent: 05/27/2023 3:13 PM EST Subject: Shingles Vaccine / COVID 19 VACCINE 1st shingles vax today @ [facility] covid 19 vax today @ [facility] documented in this encounter Plan of Treatment Not on file documented as of this encounter Visit Diagnoses Not on filedocumented in this encounter Care Teams Group Underwriter Relationship Specialty Start Date End Date Casimiro Cat MD [address] [place] [address] PCP - General Internal Medicine 09/13/11 03/15/24 Stephanie Espinosa PA [address] [place] [address] PCP - General Medical Physician Personnel Analyst 03/16/24 documented as of this encounter
--- OUTSIDE RECORDS SUMMARY | 2024-09-29 10:47 | XMS_ITS | Encounter Summary ---
Author Organization [facility] Address [address] [place] [address] Care Team Providers Care Elevator Worker Name Role Phone Casimiro Cat MD Primary Care Provider +1- [phone] Stephanie Espinosa Primary Care Provider Unav ailable Encounter Details Date Type Department Care Team Description 08/26/2022 Pt. Non Urgent Medical Question [facility] [address] [facility] [address] [place] [phone] Hallie Gustafson MD 175 [facility] [place] [address] [place] [address] Social History Tobacco Use Types Packs/Day Years [...] suspected to have Coronavirus/COVID-19? No / Unsure 08/29/2022 2:28 PM EDT documented as of this encounter Plan of Treatment Not on file documented as of this encounter Visit Diagnoses Not on filedocumented in this encounter Care Teams Elevator Worker Relationship Specialty Start Date End Date Casimiro Cat MD [address] [place] [address] PCP - General Internal Medicine 09/13/11 03/15/24 Stephanie Espinosa PA [address] [place] [address] PCP - General Medical Physician Research Program Internship 03/16/24 documented as of this encounter
--- OUTSIDE RECORDS SUMMARY | 2024-09-29 10:47 | XMS_ITS | Encounter Summary ---
Author Organization [facility] Address [address] [place] [address] Care Team Providers Care Fitness Trainer Name Role Phone Casimiro Cat MD Primary Care Provider +1- [phone] Stephanie Espinosa Primary Care Provider Unav ailable Encounter Details Date Type Department Care Team Description 12/10/2022 Order Entry Administrator Report Medical Records [address] [place] [address] Jair Bowling MD Social History Tobacco Use [...] on filedocumented in this encounter Care Teams Fitness Trainer Relationship Specialty Start Date End Date Casimiro Cat MD [address] [place] [address] PCP - General Internal Medicine 09/13/11 03/15/24 Stephanie Espinosa PA [address] [place] [address] PCP - General Medical Physician Apprentice Instrument Technician 03/16/24 documented as of this encounter
--- OUTSIDE RECORDS SUMMARY | 2024-09-29 10:47 | XMS_ITS | Encounter Summary ---
Author Organization [facility] Address [address] [place] [address] Care Team Providers Care Pewter Caster Name Role Phone Casimiro Cat MD Primary Care Provider +1- [phone] Stephanie Espinosa Primary Care Provider Unav ailable Encounter Details Date Type Department Care Team Description 03/30/2020 Refill Adult Medicine - [place] [address] [place] [address] Casimiro Cat MD [address] [place] [address] Social History Tobacco Use Types Packs/Day Years [...] on filedocumented in this encounter Care Teams Pewter Caster Relationship Specialty Start Date End Date Casimiro Cat MD [address] [place] [address] PCP - General Internal Medicine 09/13/11 03/15/24 Stephanie Espinosa PA [address] [place] [address] PCP - General Medical Physician Tool Drawing Checker 03/16/24 documented as of this encounter
--- OUTSIDE RECORDS SUMMARY | 2024-09-29 10:47 | XMS_ITS | Encounter Summary ---
Author Organization [facility] Address [address] [place] [address] Care Team Providers Care Health Program Director Name Role Phone Casimiro Cat MD Primary Care Provider +1- [phone] Stephanie Espinosa Primary Care Provider Unav ailable Encounter Details Date Type Department Care Team Description 12/10/2017 Refill Adult Medicine [facility] [address] [place] [address] Epifanio Carl PA Social History Tobacco Use [...] on filedocumented in this encounter Care Teams Health Program Director Relationship Specialty Start Date End Date Casimiro Cat MD [address] [place] [address] PCP - General Internal Medicine 09/13/11 03/15/24 Stephanie Espinosa PA [address] [place] [address] PCP - General Medical Physician Server Programmer 03/16/24 documented as of this encounter
--- OUTSIDE RECORDS SUMMARY | 2024-09-29 10:47 | XMS_ITS | Encounter Summary ---
Author Organization [facility] Address [address] [place] [address] Care Team Providers Care Seismic Interpreter Name Role Phone Casimiro Cat MD Primary Care Provider +1- [phone] Stephanie Espinosa Primary Care Provider Unav ailable Encounter Details Date Type Department Care Team Description 03/06/2020 Global Climate Change Researcher Report Medical Records [address] [place] [address] Basim George MD Social History Tobacco Use Types Packs/Day [...] on filedocumented in this encounter Care Teams Seismic Interpreter Relationship Specialty Start Date End Date Casimiro Cat MD [address] [place] [address] PCP - General Internal Medicine 09/13/11 03/15/24 Stephanie Espinosa PA [address] [place] [address] PCP - General Medical Physician Visual Developer 03/16/24 documented as of this encounter
--- OUTSIDE RECORDS SUMMARY | 2024-09-29 10:47 | XMS_ITS | Encounter Summary ---
Author Organization [facility] Address [address] [place] [address] Care Team Providers Care Hose Maker Name Role Phone Casimiro Cat MD Primary Care Provider +1- [phone] Stephanie Espinosa Primary Care Provider Unav ailable Encounter Details Date Type Department Care Team Description 06/30/2020 Refill Adult Medicine [facility] [address] [place] [address] Casimiro Cat MD [address] [place] [address] Social History Tobacco Use Types Packs/Day Years [...] on filedocumented in this encounter Care Teams Hose Maker Relationship Specialty Start Date End Date Casimiro Cat MD [address] [place] [address] PCP - General Internal Medicine 09/13/11 03/15/24 Stephanie Espinosa PA [address] [place] [address] PCP - General Medical Physician Risk Specialist 03/16/24 documented as of this encounter
--- OUTSIDE RECORDS SUMMARY | 2024-09-29 10:47 | XMS_ITS | Encounter Summary ---
Author Organization [facility] Address [address] [place] [address] Care Team Providers Care Sample Paster Name Role Phone Casimiro Cat MD Primary Care Provider +1- [phone] Stephanie Espinosa Primary Care Provider Unav ailable Encounter Details Date Type Department Care Team Description 11/26/2023 [facility] Medical Records [address] [place] [address] Mary Lenz MD [address] [place] [address] Social History Tobacco Use Types Packs/Day Years [...] on filedocumented in this encounter Care Teams Sample Paster Relationship Specialty Start Date End Date Casimiro Cat MD [address] [place] [address] PCP - General Internal Medicine 09/13/11 03/15/24 Stephanie Espinosa PA [address] [place] [address] PCP - General Medical Physician Fleece Tier 03/16/24 documented as of this encounter
--- OUTSIDE RECORDS SUMMARY | 2024-09-29 10:47 | XMS_ITS | Encounter Summary ---
Author Organization [facility] Address [address] [place] [address] Care Team Providers Care Plate Finisher Name Role Phone Casimiro Cat MD Primary Care Provider +1- [phone] Stephanie Espinosa Primary Care Provider Unav ailable Encounter Details Date Type Department Care Team Description 02/22/2020 Pt. Non Urgent Medical Question Adult Medicine - [place] [address] [place] [address] Casimiro Cat MD [address] [place] [address] Social History Tobacco Use Types Packs/Day Years [...] as of this encounter Progress Notes * Mary Reddy L.P.N. - 02/22/2020 9:52 AM EDTFrom: Angel Clay To: Casimiro Cat MD Sent: 02/22/2020 9:33 AM EDT Subject: Flu Shot Hoping to get a flu shot today at my 11:15 appointment Are They Available ??? documented in this encounter Plan of Treatment Not on file documented as of this encounter Visit Diagnoses Not on filedocumented in this encounter Care Teams Plate Finisher Relationship Specialty Start Date End Date Casimiro Cat MD [address] [place] [address] PCP - General Internal Medicine 09/13/11 03/15/24 Stephanie Espinosa PA [address] [place] [address] PCP - General Medical Physician Investment Counselor 03/16/24 documented as of this encounter
--- OUTSIDE RECORDS SUMMARY | 2024-09-29 10:47 | XMS_ITS | Encounter Summary ---
Author Organization [facility] Address [address] [place] [address] Care Team Providers Care Case Worker Name Role Phone Casimiro Cat MD Primary Care Provider +1- [phone] Stephanie Espinosa Primary Care Provider Unav ailable Encounter Details Date Type Department Care Team Description 05/18/2018 Pt. Non Urgent Medical Question Adult Medicine [address] [address] Epifanio Carl PA Social History Tobacco Use [...] Progress Notes * Pily Keller M.A. - 05/19/2018 8:16 AM ESTFrom: Angel Clay To: Epifanio Carl PA-C Sent: 05/18/2018 6:48 PM EST Subject: Shingles Vaccine Can I Get the First Shot On 05/21/18 I have a 8:45 follow up with you... Is the shots covered by my Insurance ??? Get back to me if you have any questions.. Orestes Clay 1955 documented in this encounter Plan of Treatment Not on file documented as of this encounter Visit Diagnoses Not on filedocumented in this encounter Care Teams Case Worker Relationship Specialty Start Date End Date Casimiro Cat MD [address] [place] [address] PCP - General Internal Medicine 09/13/11 03/15/24 Stephanie Espinosa PA [address] [place] [address] PCP - General Medical Physician Hotel Desk Clerk 03/16/24 documented as of this encounter
--- OUTSIDE RECORDS SUMMARY | 2024-09-29 10:47 | XMS_ITS | Encounter Summary ---
Author Organization [facility] Address [address] [place] [address] Care Team Providers Care Legal Editor Name Role Phone Casimiro Cat MD Primary Care Provider +1- [phone] Stephanie Espinosa Primary Care Provider Unav ailable Encounter Details Date Type Department Care Team Description 08/11/2022 Pt. Non Urgent Medical Question [facility] [address] [facility] [address] [place] [phone] Tobi Moise MD 175 [facility] [address] [place] [address] Social History Tobacco Use Types Packs/Day Years [...] suspected to have Coronavirus/COVID-19? No / Unsure 08/01/2022 1:04 PM EST documented as of this encounter Plan of Treatment Not on file documented as of this encounter Visit Diagnoses Not on filedocumented in this encounter Care Teams Legal Editor Relationship Specialty Start Date End Date Caismiro Cat MD [address] [place] [address] PCP - General Internal Medicine 09/13/11 03/15/24 Stephanie Espinosa PA [address] [place] [address] PCP - General Medical Physician Knot Borer 03/16/24 documented as of this encounter
--- OUTSIDE RECORDS SUMMARY | 2024-09-29 10:47 | XMS_ITS | Encounter Summary ---
Author Organization [facility] Address [address] [place] [address] Care Team Providers Care Enterprise Sales Person Name Role Phone Casimiro Cat MD Primary Care Provider +1- [phone] Stephanie Espinosa Primary Care Provider Unav ailable Encounter Details Date Type Department Care Team Description 07/02/2023 Assistant Professor Of Philosophy Report Medical Records [address] [place] [address] Baron Thakur MD Social History Tobacco Use Types Packs/Day [...] on filedocumented in this encounter Care Teams Enterprise Sales Person Relationship Specialty Start Date End Date Casimiro Cat MD [address] [place] [address] PCP - General Internal Medicine 09/13/11 03/15/24 Stephanie Espinosa PA [address] [place] [address] PCP - General Medical Physician Weaver Needle Loom 03/16/24 documented as of this encounter
--- OUTSIDE RECORDS SUMMARY | 2024-09-29 10:47 | XMS_ITS | Encounter Summary ---
Author Organization [facility] Address [address] [place] [address] Care Team Providers Care Supervisor Coke Handling Name Role Phone Casimiro Cat MD Primary Care Provider +1- [phone] Stephanie Espinosa Primary Care Provider Unav ailable Encounter Details Date Type Department Care Team Description 07/25/2022 Pt. Non Urgent Medical Question [facility] - [facility] [address] [facility] [address] [place] [phone] Hallie Gustafson MD 175 [facility] [place] [address] [place], [place] [id number] Social History Tobacco Use Types Packs/Day Years [...] suspected to have Coronavirus/COVID-19? No / Unsure 07/22/2022 1:48 PM EST documented as of this encounter Plan of Treatment Not on file documented as of this encounter Visit Diagnoses Not on filedocumented in this encounter Care Teams Supervisor Coke Handling Relationship Specialty Start Date End Date Casimiro Cat MD [address] [place] [address] PCP - General Internal Medicine 09/13/11 03/15/24 Stephanie Espinosa PA [address] [place] [address] PCP - General Medical Physician Nutritional Services Host 03/16/24 documented as of this encounter
--- OUTSIDE RECORDS SUMMARY | 2024-09-29 10:47 | XMS_ITS | Encounter Summary ---
Author Organization [facility] Address [address] [place] [address] Care Team Providers Care Manager Revenue Name Role Phone Casimiro Cat MD Primary Care Provider +1- [phone] Stephanie Espinosa Primary Care Provider Unav ailable Encounter Details Date Type Department Care Team Description 07/24/2022 Pt. Non Urgent Medical Question [facility] [address] [phone] Netta Mathis PA-C [address] [address] Social History Tobacco Use Types Packs/Day Years [...] on filedocumented in this encounter Care Teams Manager Revenue Relationship Specialty Start Date End Date Casimiro Cat MD [address] [place] [address] PCP - General Internal Medicine 09/13/11 03/15/24 Stephanie Espinosa PA [address] [place] [address] PCP - General Medical Physician Manager Ambulatory 03/16/24 documented as of this encounter
--- OUTSIDE RECORDS SUMMARY | 2024-09-29 10:47 | XMS_ITS | Encounter Summary ---
Author Organization [facility] Address [address] [place] [address] Care Team Providers Care Closing Machine Operator Name Role Phone Casimiro Cat MD Primary Care Provider +1- [phone] Stephanie Espinosa Primary Care Provider Unav ailable Encounter Details Date Type Department Care Team Description 08/26/2022 Pt. Non Urgent Medical Question [facility] [address] [phone] Mary Lenz MD [address] [address] Social History Tobacco Use Types Packs/Day Years [...] on filedocumented in this encounter Care Teams Closing Machine Operator Relationship Specialty Start Date End Date Casimiro Cat MD [address] [place] [address] PCP - General Internal Medicine 09/13/11 03/15/24 Stephanie Espinosa PA [address] [place] [address] PCP - General Medical Physician Ash Handler 03/16/24 documented as of this encounter
--- OUTSIDE RECORDS SUMMARY | 2024-09-29 10:47 | XMS_ITS | Encounter Summary ---
Author Organization [facility] Address [address] [place] [address] Care Team Providers Care Qa Tech Name Role Phone Casimiro Cat MD Primary Care Provider +1- [phone] Stephanie Espinosa Primary Care Provider Unav ailable Encounter Details Date Type Department Care Team Description 11/10/2018 Powerhouse Electrician Apprentice Report Medical Records [address] [place] [address] Basim George MD Social History Tobacco Use [...] on filedocumented in this encounter Care Teams Qa Tech Relationship Specialty Start Date End Date Casimiro Cat MD [address] [place] [address] PCP - General Internal Medicine 09/13/11 03/15/24 Stephanie Espinosa PA [address] [place] [address] PCP - General Medical Physician Refrigerator Repairman 03/16/24 documented as of this encounter
--- OUTSIDE RECORDS SUMMARY | 2024-09-29 10:47 | XMS_ITS | Encounter Summary ---
Author Organization [facility] Address [address] [place] [address] Care Team Providers Care Cheese Weigher Name Role Phone Casimiro Cat MD Primary Care Provider +1- [phone] Stephanie Espinosa Primary Care Provider Unav ailable Encounter Details Date Type Department Care Team Description 12/07/2019 Director Medical Surgical Report Medical Records [address] [place] [address] Basim George MD Social History Tobacco Use [...] on filedocumented in this encounter Care Teams Cheese Weigher Relationship Specialty Start Date End Date Casimiro Cat MD [address] [place] [address] PCP - General Internal Medicine 09/13/11 03/15/24 Stephanie Espinosa PA [address] [place] [address] PCP - General Medical Physician Claim Attorney 03/16/24 documented as of this encounter
--- OUTSIDE RECORDS SUMMARY | 2024-09-29 10:47 | XMS_ITS | Clinical Summary ---
Author Organization [facility] Address [address] [place] [address] Care Team Providers Care Lumber Scaler Name Role Phone Casimiro Cat MD Primary Care Provider + [phone] Allergies No known active allergies Medications Medication Sig Dispensed Refills Start Date End Date Status allopurinol (ZYLOPRIM) 300 MG tablet 0 08/15/2022 Active amLODIPine (NORVASC) tablet 2.5 mg Take 1 tablet (2.5 mg total) by mouth daily. 0 05/15/2022 Active pravastatin (PRAVACHOL) tablet 80 mg 0 08/06/2022 Active benazepril (LOTENSIN) 40 MG tablet Take 1 tablet (40 mg total) by mouth daily. 0 05/15/2022 Active apixaban (ELIQUIS) 5 MG TABS tablet Take 1 tablet (5 mg total) by mouth every 12 (twelve) hours. 0 Active predniSONE (DELTASONE) 5 mg tablet Take by mouth. 0 Active diclofenac (VOLTAREN) 75 MG EC tablet Take 1 tablet (75 mg total) by mouth 2 (two) times a day. 0 Active Active Problems No known active problems Social History Tobacco Use Types Packs/Day Years Used Date Smoking Tobacco: Never Smokeless Tobacco: Current Chew, Snuff Alcohol Use Standard Drinks/Week Comments Yes 15 (1 standard drink = 0.6 oz pu re alcohol) Sex and Gender Information Value Date Recorded Sex Assigned at Male 08/15/2022 11:14 AM EST Gender Identity Male 08/15/2022 11:14 AM EST Sexual Orientation Not on file Job Start Date Occupation Industry Not on file Not on file Not on file Last Filed Vital Signs Vital Sign Reading Time Taken Comments Blood Pressure 165/82 10/29/2023 9:33 AM EDT Pulse 67 10/29/2023 9:33 AM EDT Temperature 36.6 ??C (97.8 ??F) 10/29/2023 9:33 AM ED T Respiratory Rate - - Oxygen Saturation 96% 10/29/2023 9:33 AM EDT Inhaled Oxygen Concentration - - Weight 79.4 kg (175 lb) 10/29/2023 9:33 AM EDT Height 175.3 cm (5' 9 ) 08/20/2022 2:34 PM EST Body Mass Index 25.84 08/20/2022 2:34 PM EST Plan of Treatment Health Maintenance Due Date Last Done Comments Hepatitis C Screening 1955 COVID-19 Vaccine (#1) 02[birth year]04/1956 Depression Screening 1968 Preventative Health Evaluation 1974 Colon Cancer Screening (Colonoscopy) 2001 Fall Risk Assessment 2021 DTap / Tdap / Td (2 - Td or Tdap) 12/04/2021 12/05/2011 Pneumococcal Vaccine (2 of 2 - PCV) 05/15/2023 05/15/2022 Influenza Vaccine (#1) 2024 3, 03/24/2022, 03/22/2021, Additional history exists RSV Adult > 60+ Yrs or (1 - 1-dose 75+ series) 2031 Shingrix-Zoster Vaccine Completed 09/02/2023, 05/27 Hepatitis B Vaccines Aged Out No long er eligible based on patient's age to complete this topic RSV Ped < 20 months Aged Out No longe r eligible based on patient's age to complete this topic Care Teams Lumber Scaler Relationship Specialty Start Date End Date Casimiro Cat MD PCP - General Air Conditioning Mechanic Industrial 08/13/22
--- OUTSIDE RECORDS SUMMARY | 2024-09-29 10:47 | XMS_ITS | Encounter Summary ---
Author Organization [facility] Address [address] [place] [address] Care Team Providers Care Adapted Physical Education Teacher Name Role Phone Casimiro Cat MD Primary Care Provider +1- [phone] Stephanie Espinosa Primary Care Provider Unav ailable Encounter Details Date Type Department Care Team Description 08/14/2022 Pt. Non Urgent Medical Question [facility] 175 [facility] [address] [phone] Tobi Moise MD 175 [facility] [address] [place] [address] Social History Tobacco Use Types Packs/Day Years [...] on filedocumented in this encounter Care Teams Adapted Physical Education Teacher Relationship Specialty Start Date End Date Casimiro Cat MD [address] [place] [address] PCP - General Internal Medicine 09/13/11 03/15/24 Stephanie Espinosa PA [address] [place] [address] PCP - General Medical Physician Pediatric Care Coordinator 03/16/24 documented as of this encounter
--- OUTSIDE RECORDS SUMMARY | 2024-09-29 10:47 | XMS_ITS | Encounter Summary ---
Author Organization [facility] Address [address] [place] [address] Care Team Providers Care Clinical Operations Specialist Name Role Phone Casimiro Cat MD Primary Care Provider +1- [phone] Stephanie Espinosa Primary Care Provider Unav ailable Encounter Details Date Type Department Care Team Description 06/22/2021 Pt. Non Urgent Medical Question [facility] - [place] [address] [place] [address] Casimiro Cat MD [address] [place] [address] Social History Tobacco Use Types Packs/Day Years [...] Exposure Response Date Recorded In the last month, have you been in contact with someone who was confirmed or suspected to have Coronavirus / COVID-19? No / Unsure 05/23/2021 8:40 AM EST documented as of this encounter Miscellaneous Notes * Telephone Encounter - Valerie Roberts M.A. - 06/22/2021 11:29 AM ESTFrom: Angel Clay To: Dino Cat Sent: 06/22/2021 11:20 AM EST Subject: med renewal again Pravistatin 40 mg on hold with [facility] These are auto refils.. Please call them and renew .. Thanks Orestes Clay documented in this encounter Plan of Treatment Not on file documented as of this encounter Visit Diagnoses Not on filedocumented in this encounter Care Teams Clinical Operations Specialist Relationship Specialty Start Date End Date Casimiro Cat MD [address] [place] [address] PCP - General Internal Medicine 09/13/11 03/15/24 Stephanie Espinosa PA [address] [place] [address] PCP - General Medical Physician Shadowgraph Scale Operator 03/16/24 documented as of this encounter
--- OUTSIDE RECORDS SUMMARY | 2024-09-29 10:47 | XMS_ITS | Encounter Summary ---
Author Organization [facility] Address [address] [place] [address] Care Team Providers Care Outside Upholsterer Name Role Phone Casimiro Cat MD Primary Care Provider +1- [phone] Stephanie Espinosa Primary Care Provider Unav ailable Encounter Details Date Type Department Care Team Description 07/25/2022 Pt. Non Urgent Medical Question [facility] 175 [facility] [address] [place] [phone] Hallie Gustafson MD 175 [facility] [address] [place], [place] [phone] Social History Tobacco Use Types Packs/Day Years [...] on filedocumented in this encounter Care Teams Outside Upholsterer Relationship Specialty Start Date End Date Casimiro Cat MD [address] [place] [address] PCP - General Internal Medicine 09/13/11 03/15/24 Stephanie Espinosa PA [address] [place] [address] PCP - General Medical Physician Dinkey Skinner 03/16/24 documented as of this encounter
--- OUTSIDE RECORDS SUMMARY | 2024-09-29 10:47 | XMS_ITS | Encounter Summary ---
Author Organization [facility] Address [address] [place] [address] Care Team Providers Care Plastic Cablemaking Machine Operator Name Role Phone Casimiro Cat MD Primary Care Provider +[phone] Stephanie Espinosa Primary Care Provider Unav ailable Reason for Visit * Reason Onset Date Comments Provider Call Back 08/21/2022 Encounter Details Date Type Department Care Team Description 08/21/2022 Telephone [facility] [address] [phone] Tobi Moise MD [address] [place] [address] Provider Call Back Social History Tobacco Use Types Packs/Day Years [...] PM EST documented as of this encounter Miscellaneous Notes * Telephone Encounter - Perlita Blunt-Mane Greer - 08/22/2022 2:02 PM EST Patient called back. He was advised that we did reach out to Dr. Wright's office and spoke with Camila. She states the dictation for the notes have not been done yet. She states Dr. Wright will be out of the office the rest of this week. She recommends calling back next week. Patient was very upset and Frustrated that he would have to wait for the notes to be completed and then for the notes norma sent to Dr. Moise for consideration of an injection. Patient was informed that provider is notin clinic today. Patient was informed that we muct wait for those notes in order to know how to proceed with a plan. Patient verbalizes understanding. * Telephone Encounter - Perlita Welch M.A. - 08/21/2022 2:34 PM EST Message left for patient to call back. * Telephone Encounter - Perlita Welch M.A. - 08/21/2022 1:[address] Moise Do you recommend patient having a U/S guided cortisone injection prior to his scheduled surgery for10/07/22? Please advise. * Telephone Encounter - Montserrat Cheek - 08/21/2022 9:56 AM EST Received call from patient stating that he saw Dr Wright yesterday, per Dr Moise's Referral, andit was suggested that patient have a U/S Guided injection in his L.Knee. (Dr Wright to send his findings per pt). Patient is scheduled for SX on 10/07/22 for a (SCONE) Left Knee Scope/ PMM with Dr Moise. Patient stated possibly scheduling Injection with Dr Gustafson. Please advise. Please call patient back at [phone].Thanks. documented in this encounter Plan of Treatment Not on file documented as of this encounter Visit Diagnoses Not on filedocumented in this encounter Care Teams Plastic Cablemaking Machine Operator Relationship Specialty Start Date End Date Casimiro Cat MD [address] [place] [address] PCP - General Internal Medicine 09/13/11 03/15/24 Stephanie Espinosa PA [address] [place] [address] PCP - General Medical Physician Signal Worker Helper 03/16/24 documented as of this encounter
--- OUTSIDE RECORDS SUMMARY | 2024-09-29 10:47 | XMS_ITS | Encounter Summary ---
Author Organization [facility] Address [address] [place] [address] Care Team Providers Care Promotion Manager Name Role Phone Casimiro Cat MD Primary Care Provider +1- [phone] Stephanie Espinosa Primary Care Provider Unav ailable Encounter Details Date Type Department Care Team Description 08/26/2022 Pt. Non Urgent Medical Question [facility] [address] [phone] Netta Mathis PA-C [address] [address] Social History Tobacco Use Types Packs/Day Years [...] on filedocumented in this encounter Care Teams Promotion Manager Relationship Specialty Start Date End Date Casimiro Cat MD [address] [place] [address] PCP - General Internal Medicine 09/13/11 03/15/24 Stephanie Espinosa PA [address] [place] [address] PCP - General Medical Physician Distribution District Supervisor 03/16/24 documented as of this encounter
--- OUTSIDE RECORDS SUMMARY | 2024-09-29 10:47 | XMS_ITS | Encounter Summary ---
Author Organization [facility] Address [address] [place] [address] Care Team Providers Care Lumpia Wrapper Maker Name Role Phone Casimiro Cat MD Primary Care Provider +1- [phone] Stephanie Espinosa Primary Care Provider Unav ailable Encounter Details Date Type Department Care Team Description 01/08/2023 Orders Only Medical Records [address] [place] [address] Abstract, Provider Social History Tobacco Use Types [...] was confirmed or suspected to have Coronavirus/COVID-19? Unable to assess 12/19/2022 2:12 PM EDT documented as of this encounter Plan of Treatment Not on file documented as of this encounter Procedures Procedure Name Priority Date/Time Associated Diagnosis Comments OUTSIDE MRI/MRA Routine 12/27/2022 documented in this encounter Results * OUTSIDE MRI/MRA (12/27/2022) Provider Abstract RADIOLOGY documented in this encounter Visit Diagnoses Not on filedocumented in this encounter Care Teams Lumpia Wrapper Maker Relationship Specialty Start Date End Date Casimiro Cat MD [address] [place], [place] [phone] PCP - General Internal Medicine 09/13/11 03/15/24 Stephanie Espinosa PA [address] [place] [address] PCP - General Medical Physician Diamond Sorter 03/16/24 documented as of this encounter
--- OUTSIDE RECORDS SUMMARY | 2024-09-29 10:47 | XMS_ITS | Encounter Summary ---
Author Organization [facility] Address [address] [place] [address] Care Team Providers Care Motor Equipment Sergeant Name Role Phone Casimiro Cat MD Primary Care Provider +1 [phone] Stephanie Espinosa Primary Care Provider Unav ailable Reason for Visit * Reason Onset Date Comments Surgery Cancelled 09/27/2022 Encounter Details Date Type Department Care Team Description 09/27/2022 Telephone [facility] 175 [facility] [address] [place] [phone] Tobi Moise MD 175 [facility] [address] [place] [address] Surgery Cancelled Social History Tobacco Use Types Packs/Day Years [...] Recorded In the last 10 days, have reilly u been in contact with someone who was confirmed or suspected to have Coronavirus/COVID-19? No / Unsure 09/13/2022 8:22 AM EDT documented as of this encounter Miscellaneous Notes * Telephone Encounter - Hallie Gustafson MD - 09/30/2022 12:40 PM EDT Just FYI, Orestes is still doing well after injection so he is cancelling surgery. * Telephone Encounter - Shelbie Bradshaw - 09/27/2022 3:44 PM EDT Patient left message requesting to cancel surgery. I returned his call to confirm if he wanted to cancel or reschedule. Patient stated at this time he does not feel it's necessary to have surgery since he just had an injection about 3 weeks ago and his knee feels great, I have no pain at all. Patient states that he did see Dr. Wright prior to his appointment with Dr. Gustafson, who recommended an injection. I informed patient I can certainly cancel his surgery per his request but advised him Dr. Moise is booking quite far out (currently into February). I advised patient I am not sure how Dr. Moise's schedule will look in the future if any issues do arise. Patient states he is willingto take my chances . Patient wants Dr. Gustafson and Dr. Moise to know the injection is working great, does not feel he needs surgery at this time. documented in this encounter Plan of Treatment Not on file documented as of this encounter Visit Diagnoses Not on filedocumented in this encounter Care Teams Motor Equipment Sergeant Relationship Specialty Start Date End Date Casimiro Cat MD [address] [place] [address] PCP - General Internal Medicine 09/13/11 03/15/24 Stephanie Espinosa PA [address] [place] [address] PCP - General Medical Physician Freight Loader 03/16/24 documented as of this encounter
--- OUTSIDE RECORDS SUMMARY | 2024-09-29 10:47 | XMS_ITS | Data Portability ---
Author Organization [place] [facility] [place] Address [address] [place] [address] Care Team Providers Care Die Welder Name Role Phone SOFIA WHITMORE Referring Provider [phone] SOFIA WHITMORE Primary Care Provider [phone] Assessment Encounter Date Assessment Date Assessment LastModified by Organization Details LastModified Time 12/23/2022 12/23/2022 1. Chronic medially based right knee pain. I suspect a medial meniscus tear. He is frustrated by his ongoing symptoms on that side. He has tried a self-directed home exercise program, activity modification, and anti-inflammatory medications without success. I recommend an MRI to fully evaluate for a medial meniscus tear. 2. Chronic posterior medial left knee pain, I suspect semimembranosus tendinitis. He did improve for a month or 2 after an ultrasound-guided cortisone injection. We talked about treatment options moving forward. 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 We discussed repeating a cortisone injection, but it is a bit soon. We discussed a PRP injection as an option, he would like to try that. He understands there are no guarantees. We will work on setting that up in the office in the near future. He had numerous questions which were invited and answered. Greater than 30 minutes was spent with the encounter today, including face to face time with the patient, documentation, review of records/imaging if applicable, and coordination of care. PRIOR: Based on his exam and the MRI I am most suspicious that he has semimembranosus tendinitis and irritation. There is type II signal in the medial meniscus which may extend to the inferior articular surface, however, his clinical exam is not particularly impressive to support a symptomatic meniscus tear. With that said, we do need to keep in mind that he did get some transient improvement with the intra-articular cortisone injection. We talked about treatment options. This included activity modification, ongoing judicious use of anti-inflammatorie s, icing protocol. May consider a diagnostic lidocaine injection around the semimembranosus, and if this is helpful potentially adding some cortisone. We will see if this is something Dr. Gustafson might be able to accomplish under ultrasound. ? ? ? At present I would not recommend arthroscopic surgery as I think the chances of improvement are low. With that said, if all else fails a diagnostic arthroscopy may ultimately be necessary. Discussed with him that they are in excellent hands with Dr. Moise and Dr. Gustafson.? ? ? [email or web address] Not available 12/25/2022 16:51:56 01/07/2023 01/07/2023 1. Chronic right knee pain. Recent MRI shows a degenerative appearing medial meniscus tear as well as moderate degenerative changes in the medial and patellofemoral compartments. At this point I recommend conservative management, I would not recommend an arthroscopic intervention. He expressed his understanding. He will monitor symptoms and if symptoms escalate or persist can consider cortisone injection versus viscosupplementati on. He will continue with a home exercise program. 2. Persistent chronic medially based left knee pain suspicious for semimembranosus tendinitis. He wished to proceed with a PRP injection today. He tolerated this well. Postinjection instructions reviewed. He will give this a good month to see if his symptoms settle down and subside. He will continue home exercise program. PRIOR : 1. Chronic medially based right knee pain. I suspect a medial meniscus tear. He is frustrated by his ongoing symptoms on that side. He has tried a self-directed home exercise program, activity modification, and anti-inflammatory medications without success. I recommend an MRI to fully evaluate for a medial meniscus tear. 2. Chronic posterior medial left knee pain, I suspect semimembranosus tendinitis. He did improve for a month or 2 after an ultrasound-guided cortisone injection. We talked about treatment options moving forward. 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 We discussed repeating a cortisone injection, but it is a bit soon. We discussed a PRP injection as an option, he would like to try that. He understands there are no guarantees. We will work on setting that up in the office in the near future. He had numerous questions which were invited and answered. PRIOR: Based on his exam and the MRI I am most suspicious that he has semimembranosus tendinitis and irritation. There is type II signal in the medial meniscus which may extend to the inferior articular surface, however, his clinical exam is not particularly impressive to support a symptomatic meniscus tear. With that said, we do need to keep in mind that he did get some transient improvement with the intra-articular cortisone injection. We talked about treatment options. This included activity modification, ongoing judicious use of anti-inflammatorie s, icing protocol. May consider a diagnostic lidocaine injection around the semimembranosus, and if this is helpful potentially adding some cortisone. We will see if this is something Dr. Gustafson might be able to accomplish under ultrasound. ? ? ? At present I would not recommend arthroscopic surgery as I think the chances of improvement are low. With that said, if all else fails a diagnostic arthroscopy may ultimately be necessary. Discussed with him that they are in excellent hands with Dr. Moise and Dr. Gustafson.? ? ? Not available 01/07/2023 11:10:20 03/07/2023 03/07/2023 The above findin gs suggest right lateral epicondylitis. We discussed pathology and expected prognosis today. Treatment options include conservative treatment, physical therapy, and bracing. I showed them some exercises to work on today and provided a printout of home exercise. This is a self-limiting process however it often takes 6 months to one year for the symptoms to resolve. I recommend a tennis elbow counterforce brace for pain control during activities, I made sure he was wearing it properly. I explained to them that even if they are having discomfort, it is okay to work through the pain. I do not recommend a cortisone injection as it may provide some temporary relief but clinical data shows that it will prolong the overall course of symptoms. We discussed formal physical therapy, the patient would like to start with home exercises. I will see them back on an as-needed basis. No x-rays are needed at that visit. [email or web address] Not available 03/07/2023 13:14:37 10/06/2023 10/06/2023 Chronic right kn ee pain, predominantly anterior and medially based. Previous MRI imaging in December 2022 demonstrated a degenerative medial meniscus tear as well as moderate degenerative changes in the knee. Overall his MRI degenerative changes are more pronounced than his x-rays today. I again reviewed the natural history of osteoarthritis and meniscus tears. At present his symptoms are fairly minimal and we decided on observation. Should his symptoms increase even over the next couple of weeks he can come in for a cortisone injection. We had a lengthy discussion about PRP, certainly a consideration down the line. Final option would be surgery with an arthroscopy, partial medial meniscectomy, and chondroplasty. He understands that results with this type of surgery can be variable particularly in the setting of osteoarthritis. Additionally, given his ongoing medical issues with the blood clots and anticoagulation he needs to sort all that out before any consideration of surgery can happen. He is comfortable with the plan as outlined. Questions invited and answered. Greater than 30 minutes was spent with the encounter today, including face to face time with the patient, documentation, review of records/imaging if applicable, and coordination of care. PRIOR: 1. Chronic right knee pain. Recent MRI shows a degenerative appearing medial meniscus tear as well as moderate degenerative changes in the medial and patellofemoral compartments. At this point I recommend conservative management, I would not recommend an arthroscopic intervention. He expressed his understanding. He will monitor symptoms and if symptoms escalate or persist can consider cortisone injection versus viscosupplementati on. He will continue with a home exercise program. 2. Persistent chronic medially based left knee pain suspicious for semimembranosus tendinitis. He wished to proceed with a PRP injection today. He tolerated this well. Postinjection instructions reviewed. He will give this a good month to see if his symptoms settle down and subside. He will continue home exercise program. PRIOR : 1. Chronic medially based right knee pain. I suspect a medial meniscus tear. He is frustrated by his ongoing symptoms on that side. He has tried a self-directed home exercise program, activity modification, and anti-inflammatory medications without success. I recommend an MRI to fully evaluate for a medial meniscus tear. 2. Chronic posterior medial left knee pain, I suspect semimembranosus tendinitis. He did improve for a month or 2 after an ultrasound-guided cortisone injection. We talked about treatment options moving forward. 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 We discussed repeating a cortisone injection, but it is a bit soon. We discussed a PRP injection as an option, he would like to try that. He understands there are no guarantees. We will work on setting that up in the office in the near future. He had numerous questions which were invited and answered. PRIOR: Based on his exam and the MRI I am most suspicious that he has semimembranosus tendinitis and irritation. There is type II signal in the medial meniscus which may extend to the inferior articular surface, however, his clinical exam is not particularly impressive to support a symptomatic meniscus tear. With that said, we do need to keep in mind that he did get some transient improvement with the intra-articular cortisone injection. We talked about treatment options. This included activity modification, ongoing judicious use of anti-inflammatorie s, icing protocol. May consider a diagnostic lidocaine injection around the semimembranosus, and if this is helpful potentially adding some cortisone. We will see if this is something Dr. Gustafson might be able to accomplish under ultrasound.? ? ? At present I would not recommend arthroscopic surgery as I think the chances of improvement are low. With that said, if all else fails a diagnostic arthroscopy may ultimately be necessary. Discussed with him that they are in excellent hands with Dr. Moise and Dr. Gustafson.? ? ? Not available 10/06/2023 08:59:17 Plan of Treatment Reminders Order Date Submit Date Provider Last Modified By Organization Details Last Modified Time Details Appointments None recorded . Lab None recorded . Referral None recorded . Procedures None recorded . Surgeries None recorded . Imaging XR, knee, 3 view 2023 024 [email or web address] [facility], [address], [address], [place], [address], 4 12:17:34 XR, elbow, 3 or more view 2022 023 [facility], [address], [address], [place], [address], 3 16:09:37 MRI, knee, w/o contrast - Please call patient to schedule and hand carry CD 2022 023 [facility], [address], [place], [address], 3 12:03:20 Medication Orders lidocain e (PF) 100 mg/5 mL (2 %) injectio n syringe 2022 023 [email or web address] [facility], [address], [place], [address], 11:00:05 Patient TargetsNo targets recorded. Patient Instructions Encounter Date Encounter Id Patient Instructions Last Modified By Organization Details Last Modified Time 01/07/2023 Patient Instructions Following PRP Injections Dr. Wright has recommended an injection for you in the office today. He has injected the area in order to reduce the pain that you are experiencing. Please note that not everyone will have a lasting response following the injection. Here is some information that he would like for you to have: ? ? ? Content of the Injection: The injection consists of platlet rich plasma which contains growth factors. You may experience a small increase in pain following the injection. ? ? ? Post-injection Instructions: It is recommended that you refrain from any high level activities using the joint or limb that was injected for approximately 48 hours. Normal day to day activities are generally not a problem. ? ? ? Avoid icing the area for at least 48 hours unless necessary for significant pain. Do not take any anti-inflammatory medications for at least 48-72 hours after the injection unless you are already on a medication like prednisone. Tylenol is fine to take as needed per the over the counter dosing. Possible Side Effects ? ? ? Skin discoloration: Individuals with dark complexions may experience some skin discoloration locally at the site of the injection. ? ? ? Flare-Up: There is the possibility of an increase in discomfort within 48 hours following the injection. This is called a ? f lare? . To help minimize the chances of this, please see the post-injection instructions above. ? ? ? Infection: There is a less than 1% chance of an infection. If you notice any signs of infection (redness, warmth, drainage, fever greater than 100 degrees) you should call Dr. Wright? s office immediately at [phone]. [email or web address] Not available 01/07/2023 09:58:02 03/07/2023 [id number] tennis elbow: exercises [email or web address] Not available 03/07/2023 13:14:46 3 views of the right elbow were ordered and reviewed today, this demonstrates medial joint space narrowing of the ulnar humeral joint with osteophyte formation at the medial asked of the joint and at the posterior lateral aspect of the elbow. There is an enthesophyte off the posterior olecranon. The radiocapitellar joint looks intact without joint space narrowing. There are no other osseous abnormality seen. [email or web address] Not available 03/07/2023 13:13:00 10/06/2023 [id number] 3 views of the right knee were obtained on 10/06/2023 in the [place] office. Joint spaces overall well-maintained. Patella tracks centrally. 2 very small areas of nonspecific calcification in the region of the fat pad and a second in the posterior knee. No acute fracture appreciated. Findings: Overall well-maintained joint spaces right knee. Interpreted by: MD barbie Masters Not available 10/06/2023 08:42:37 Reason for Referral None Reported. Problems Name Problem SNOMED Code Status Onset Date Resolution Date Notes Provider Name and Address Organization Details Recorded Time Pain of right knee joint 6627926023613 00 Active 2022 Jonatan Wright MD [address],[facility] [address], [place], [address], [place] [facility], [facility] 3 15:34:11 Inflammatio n of semimembran osus muscle bursa of left knee Active 2022 Jonatan Wright MD [address], [facility] [place], [address], [place] - [facility], [facility] 3 15:34:54 Lateral epicondylit is of right humerus 4827775563742 07 Active 2022 Jennifer huston MD [address], [facility] [place], [address], [place] - [facility], [facility] 3 13:11:56 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 Procedures Surgical History Date Name Laterality Status Provider Name and Address Organization Details Recorded Time 01/07/2023 Knee PRP w/US Inj completed Jonatan Wright MD [address], [place], [address], [place] [facility], [facility] 01/07/2023 11:13:45 Imaging Results None recorded. Procedure Notes None recorded. Medical Equipment None Reported. Allergies No known drug allergies Medications Name Sig Start Date Stop Date Status Note LastModified by Organization Details LastModified Time celecoxib 200 mg capsule active Not Available Not Available Not Available prednisone 20 mg tablet 10/05 completed Not Available Not Available Not Available prednisone 5 mg tablet 10/05 completed Not Available Not Available Not Available amlodipine 2.5 mg tablet active Not Available Not Available Not Available allopurinol 100 mg tablet active Not Available Not Available Not Available pravastatin 80 mg tablet active Not Available Not Available Not Available prednisone 1 mg tablet active Not Available Not Available Not Available prednisone 2.5 mg tablet active Not Available Not Available Not Available diclofenac sodium 75 mg tablet,kwadwo yed release active Not Available Not Available Not Available allopurinol 300 mg tablet active Not Available Not Available Not Available benazepril 40 mg tablet active Not Available Not Available Not Available lidocaine (PF) 100 mg/5 mL (2 %) injection syringe Take 4 mL by injection route. 2022 active Not Available Not Available Not Avai lable Eliquis 5 mg tablet active Not Available Not Available No t Available Jennifer DVT-PE Treatment 30-Day Starter 5 mg (74 tablets) in dose pack TAKE 1 TABLET BY MOUTH DIRECTED active Not Available Not Available No t Available Vitals Date Recorded Body height Body mass index (BMI) Body weight Provider Name and Address Organization Details Last Updated DateTime 10/06/2023 175.26 cm 26 kg/m2 62273.26 g Brittaney Aguilar [place] - [facility], [facility] 10/06/2023 08:30:12 Date Recorded Body weight Body mass index (BMI) Body height Provider Name and Address Organization Details Last Updated DateTime 12/23/2022 75234.85 g 26.1 kg/m2 175.26 cm Brittaney Aguilar [facility], P 12/23/2022 15:11:26 Date Recorded Body height Body mass index (BMI) Body weight Provider Name and Address Organization Details Last Updated DateTime 01/07/2023 175.26 cm 26.1 kg/m2 77768.85 g Bill [facility]oz [facility] 01/07/2023 09:16:29 Social History Question Answer Notes LastModified by [email or web address] ion Details LastModified Time Tobacco Smoking Status Former Smoker Brittaney Aguilar bg, [place] - [facility], [facility] 12/23/2022 15:10:48 What Is Your Level Of Alcohol Consumption? Moderate [email or web address] Information not available 12/23/2022 How Many Times Per Week Do You Consume Alcohol? 5-7 Times Per Week [email or web address] Information not available 12/23/2022 Are You Currently Employed? No [email or web address] Information not available 12/23/2022 Are You Deaf Or Do You Have Serious Difficulty Hearing? No [email or web address] Information not available 12/23/2022 Do You Or Have You Ever Used E-cigarettes Or Vape? Never Used Electronic Cigarettes [email or web address] Information not available 12/23/2022 Do You Or Have You Ever Used Smokeless Tobacco? Never Used Smokeless Tobacco Information not available 12/23/2022 Do You Use Any Illicit Or Recreational Drugs? No [email or web address] Information not available 12/23/2022 Do You Or Have You Ever Used Any Other Forms Of Tobacco Or Nicotine? No [email or web address] Information not available 12/23/2022 Sex: Unknown Functional Status None recorded. Mental Status None recorded. Family History Relationship Description Onset Age of this Age Resolved Age Notes LastModified by Organization Details LastModified Time Mother Family history of malignant neoplasm 51 52 [email or web address] Not available 2022 15:10:48 Medical History Condition Response Gout Y Cancer Y Rheumatoid Arthritis Y Arthritis Y Hypertension Y High Cholesterol Y Past Encounters Encounter ID Performer Location Encounter Start Date Encounter Closed Date Diagnosis/Indication Diagnosis SNOMED-CT Code Diagnosis ICD10 Code Diagnosis Note [id number] MD MIAH Masters [facility] [address] [facility] [address] [facility] [place] [address] 12/23/2022 14:39:11 12/23/2022 15:39:59 Pain of right knee joint 5879761841 87907 M25.561 Inflammati on of semimembranosus muscle bursa of left knee 3034899139 46567 M76.42 [id number] MD MIAH Masters [address] [place] [address] 01/07/2023 09:11:27 01/07/2023 13:24:17 Inflammation of semimembranosus muscle bursa of left knee 1939940349 03443 M76.42 Pain of ri ght knee joint 5195600633 39962 M25.561 [id number] MD MIAH Grove [address] [address] 03/07/2023 10:05:55 03/07/2023 11:35:30 Pain of right elbow joint 4564279995 2878692 M25.521 Lateral ep icondylitis of right humerus 6746314070 77551 M77.11 [id number] MD MIAH Masters [place] [address] 10/06/2023 08:18:10 10/06/2023 08:54:26 Pain of right knee joint 4693214379 19755 M25.561 Inflammati on of semimembranosus muscle bursa of left knee 8986814704 56918 M76.42 Degenerati ve rupture of medial meniscus of right knee 3619919237 1147080 M23.203 Additional diagnosis detail: Degenerati ve tear of medial meniscus, right Health Concerns Section Related Observation LastModified by Organization Detai ls LastModified Time None Recorded Concern Status LastModified by Organization Details LastModified Time None Recorded Advance Directives Directive None Recorded Payers Encounter Date Sequence Insurance Name Policy Number Policy Wylie Covered Member ID Wylie Member ID Guarantor Name 12/23/2022 1 [facility] (MEDICARE REPLACEMENT/A DVANTAGE - HMO) [id number] Angel Prajapatifaisalerika [id number] Angel Clay 01/07/2023 1 [facility] (MEDICARE REPLACEMENT/A DVANTAGE - HMO) [id number] Angel Caly [id number] Angel Clay 03/07/2023 1 [facility] (MEDICARE REPLACEMENT/A DVANTAGE - HMO) [id number] Angel Clay [id number] Angel Clay 10/06/2023 1 [facility] (MEDICARE REPLACEMENT/A DVANTAGE - HMO) [id number] Angel Meyers [place] [id number] Angel Clay Notes Date Note Type Note Provider Name and Address Organization Details Recorded Time 12/23/2022 text/html Patient returns to the office for an evaluation of his left knee. He is also complaining of chronic medially based right knee pain. He has not had any treatment or work-up for the right knee. He describes the pain as sharp. He describes intermittent mechanical symptoms and sensations of instability. It is limiting his activities. With regards to the left knee he underwent an ultrasound-guided cortisone injection around the posterior medial knee with Dr. Gustafson in August after I saw him. He states he obtained a couple months of improvement after the injection, but the symptoms have returned. It is predominantly over the posterior medial knee, worse with extension. 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 PRIOR 08/20/2022:Angel Clay is a 67 y.o. male here today for evaluation of persistent posteromedial left knee pain. 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 No significant previous problems with the knee. History of an MCL sprain on the contralateral knee. He has seen Dr. Gustafson and Dr. Moise. He has surgery tentatively scheduled in September, but is very anxious about his knee pain and is here for a second opinion predominantly to see if surgery could be accomplished sooner than September. He has not had any formal physical therapy. Taking diclofenac helps for 2 to 3 days. He had a cortisone injection that helped for about a week. The knee does not swell. He rates his pain between a 6 to an 8 on a 10 point scale. He describes it as constant and worsening. There is some associated radiating pain to the calf as well as tingling.? ? ?He reports he is retired. History of blood clot/DVT, cancer, gout, high blood pressure, prednisone use, and polymyalgia rheumatica. Non-smoker. Jonatan Wright MD [address] [place] [address],[place] [address], [place], [address], [place] - [facility] 12/25/2022 16:52:05 01/07/2023 text/html Patient presents for follow-up of his right knee and PRP injection for his left knee. He is reports that both knees are feeling about the same. He is on prednisone 10 mg, has a follow-up in about a month at which point he hopes to be weaned down to 5 mg. Sounds like he is going to be on the prednisone at least at some dosage for a while. He did have his MRI done of his right knee and brings that today for review. PRIOR:Patient returns to the office for an evaluation of his left knee. He is also complaining of chronic medially based right knee pain. He has not had any treatment or work-up for the right knee. He describes the pain as sharp. He describes intermittent mechanical symptoms and sensations of instability. It is limiting his activities. With regards to the left knee he underwent an ultrasound-guided cortisone injection around the posterior medial knee with Dr. Gustafson in August after I saw him. He states he obtained a couple months of improvement after the injection, but the symptoms have returned. It is predominantly over the posterior medial knee, worse with extension. 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 PRIOR 08/20/2022:Angel Clay is a 67 y.o. male here today for evaluation of persistent posteromedial left knee pain. 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 No significant previous problems with the knee. History of an MCL sprain on the contralateral knee. He has seen Dr. Gustafson and Dr. Moise. He has surgery tentatively scheduled in September, but is very anxious about his knee pain and is here for a second opinion predominantly to see if surgery could be accomplished sooner than September. He has not had any formal physical therapy. Taking diclofenac helps for 2 to 3 days. He had a cortisone injection that helped for about a week. The knee does not swell. He rates his pain between a 6 to an 8 on a 10 point scale. He describes it as constant and worsening. There is some associated radiating pain to the calf as well as tingling.? ? ?He reports he is retired. History of blood clot/DVT, cancer, gout, high blood pressure, prednisone use, and polymyalgia rheumatica. Non-smoker. Jonatan Wright MD [address], [place], [address], [place] - [facility] 01/07/2023 11:13:53 03/07/2023 text/html This is a 67-yea r-old [id number] male who presents with right elbow pain that started in mid January 2023. He was using a hammer to do some renovations on his house and he woke up the next day with pain at the lateral aspect of his elbow. He was working through this pain as he is experienced tennis elbow in the past on the left side, however 2 weeks ago he was swinging a hammer and missed and stopped mid swing and experienced a pain on the lateral aspect of his elbow and he wanted to have it evaluated. Of note he did have surgery for lateral epicondylitis in the left elbow at [facility] number of years ago. He feels like the pain is similar to the left side that he is experiencing on the right. He has pain at the lateral epicondyle that radiates to his forearm especially when he is doing activities. He denies any numbness or tingling. He has been doing icing and taking Celebrex as well as using diclofenac cream which has been helping. He also has a counterforce brace which she has been using. He has not experienced any improvement in the symptoms and wanted it evaluated. He does have a history of poly myalgia rheumatica and sees jail keeper, he is on prednisone 5 mg daily. Jennifer Camejo MD [address], [place], [address], [place] - [facility] 03/07/2023 13:14:51 10/06/2023 text/html Patient returns after a bit of a hiatus for an evaluation of his right knee. By way of follow-up his left knee is doing extraordinarily well after the PRP injection. He found the injection very painful for several days but then the symptoms resolved and he is back to spinning without any issues. Unfortunately, the right knee gives him intermittent issues. Pain is predominantly anterior and medial. 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 He does have underlying polymyalgia rheumatica and takes anti-inflammatories as well as daily prednisone. He recently was diagnosed with a second blood clot and is on Eliquis. He has a follow-up with a specialist in about a month to determine whether or not he needs long-term anticoagulation and what the potential etiology of the blood clots are. Today, his right knee pain is minimal. Sometimes it can be quite prominent. He denies catching or locking. He denies swelling. PRIOR:Patient presents for follow-up of his right knee and PRP injection for his left knee. He is reports that both knees are feeling about the same. He is on prednisone 10 mg, has a follow-up in about a month at which point he hopes to be weaned down to 5 mg. Sounds like he is going to be on the prednisone at least at some dosage for a while. He did have his MRI done of his right knee and brings that today for review.PRIOR:Patient returns to the office for an evaluation of his left knee. He is also complaining of chronic medially based right knee pain. He has not had any treatment or work-up for the right knee. He describes the pain as sharp. He describes intermittent mechanical symptoms and sensations of instability. It is limiting his activities.With regards to the left knee he underwent an ultrasound-guided cortisone injection around the posterior medial knee with Dr. Gustafson in August after I saw him. He states he obtained a couple months of improvement after the injection, but the symptoms have returned. It is predominantly over the posterior medial knee, worse with extension. 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 male here today for evaluation of persistent posteromedial left knee pain. 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 No significant previous problems with the knee. History of an MCL sprain on the contralateral knee. He has seen Dr. Gustafson and Dr. Moise. He has surgery tentatively scheduled in September, but is very anxious about his knee pain and is here for a second opinion predominantly to see if surgery could be accomplished sooner than September. He has not had any formal physical therapy. Taking diclofenac helps for 2 to 3 days. He had a cortisone injection that helped for about a week. The knee does not swell. He rates his pain between a 6 to an 8 on a 10 point scale. He describes it as constant and worsening. There is some associated radiating pain to the calf as well as tingling.? ? ?He reports he is retired. History of blood clot/DVT, cancer, gout, high blood pressure, prednisone use, and polymyalgia rheumatica. Non-smoker. Jonatan Wright MD [address], [place], [address], [place] - [facility] 10/06/2023 17:57:25
--- OUTSIDE RECORDS SUMMARY | 2024-09-29 10:47 | XMS_ITS | Encounter Summary ---
Author Organization [facility] Address [address] [place] [address] Care Team Providers Care Military Professional Name Role Phone Casimiro Cat MD Primary Care Provider +1- [phone] Stephanie Espinosa Primary Care Provider Unav ailable Reason for Visit * Reason Onset Date Comments Surgery (Schedule) 10/30/2023 Encounter Details Date Type Department Care Team Description 10/30/2023 Telephone [facility] [address] [phone] Mary Lenz MD [address] [address] Surgery (Schedule) Social History Tobacco Use Types Packs/Day Years [...] Miscellaneous Notes * Telephone Encounter - Mary Lenz MD - 11/17/2023 3:09 PM EDT [facility] pt aware. Will address on Friday at his pre-op * Telephone Encounter - Mary Lenz MD - 11/17/2023 3:09 PM EDT ----- Message from Carol Jones sent at 11/17/2023 2:26 PM EDT ----- Regarding: FW: Rinvoq 15mg Contact: ----- Message ----- From: Angel Clay Sent: 11/17/2023 2:23 PM EDT To: [facility] 175 [id number] Clinical Pool Subject: Rinvoq 15mg Dr Lenz Started Rinvoq on Nov 13 2023 For RA Is this OK Before Surgery ??? Or Should I Stop it. * Telephone Encounter - Annika Reynolds - 10/30/2023 1:02 PM EDT Hello- Patient called today looking for anything sooner then 12/31/23 for surgery. He states he doesn't think he is going to be able to wait that long, and he asked that we keep him on a cancellation list or if something other then 12/31/23 is available he would like to be considered. Thank You Annika documented in this encounter Plan of Treatment Not on file documented as of this encounter Visit Diagnoses Not on filedocumented in this encounter Care Teams Military Professional Relationship Specialty Start Date End Date Casimiro Cat MD [address] [place] [address] PCP - General Internal Medicine 09/13/11 03/15/24 Stephanie Espinosa PA [address] [place] [address] PCP - General Medical Physician Salt Washer 03/16/24 documented as of this encounter
--- OUTSIDE RECORDS SUMMARY | 2024-09-29 10:47 | XMS_ITS | Encounter Summary ---
Author Organization [facility] Address [address] [place] [address] Care Team Providers Care Provider Relations Representative Name Role Phone Casimiro Cat MD Primary Care Provider +1- [phone] Stephanie Espinosa Primary Care Provider Unav ailable Encounter Details Date Type Department Care Team Description 04/18/2023 [facility] Medical Records [address] [place] [id number] Michelle Woodson PA-C Social History Tobacco Use Types Packs/Day Years [...] on filedocumented in this encounter Care Teams Provider Relations Representative Relationship Specialty Start Date End Date Casimiro Cat MD [address] [place] [address] PCP - General Internal Medicine 09/13/11 03/15/24 Stephanie Espinosa PA [address] [place] [address] PCP - General Medical Physician Guitar Maker Hand 03/16/24 documented as of this encounter
--- OUTSIDE RECORDS SUMMARY | 2024-09-29 10:47 | XMS_ITS | Encounter Summary ---
Author Organization [facility] Address [address] [place] [address] Care Team Providers Care Delivery Architect Name Role Phone Casimiro Cat MD Primary Care Provider +1- [phone] Stephanie Espinosa Primary Care Provider Unav ailable Encounter Details Date Type Department Care Team Description 11/25/2022 Pt. Non Urgent Medical Question Adult Medicine - [place] [address] [place] [address] Casimiro Cat MD [address] [place] [address] Social History Tobacco Use Types Packs/Day Years [...] encounter Miscellaneous Notes * Telephone Encounter - Lu Cruz L.P.N. - 11/25/2022 1:33 PM EDTFrom: Angel Clay To: Dino Cat Sent: 11/25/2022 1:31 PM EDT Subject: PMR Concers Again Dr Cat, I want to fill you in on what is going on with me. About 6 weeks ago, I started waking up every morning with Hip & Schoulder pain and stiffness. After 2 or 3 days I started taking 10mgprednisone daily and it helped quite a bit. After 2 weeks I went to 5mg prednisone daily and after a couple of weeks , the pain and stiffness returned just not as bad. Last week ater a hard couple ofdays working, I needed a Diclofanec for the pain. That works great however after 2 days I had to stop because of stomach problems. Ater not taking anything over the last 2 or 3 days, I can hardly stand the pain in both Hips & Shoulders. I want to see Dr Bowling at [facility] as he was my Dr for Rheumatolgy .. Anything you might think of to miley p, Please let me know.. documented in this encounter Plan of Treatment Not on file documented as of this encounter Visit Diagnoses Not on filedocumented in this encounter Care Teams Delivery Architect Relationship Specialty Start Date End Date Casimiro Cat MD [address] [place] [address] PCP - General Internal Medicine 09/13/11 03/15/24 Stephanie Espinosa PA [address] [place] [address] PCP - General Medical Physician Patient Portal Concierge 03/16/24 documented as of this encounter
--- OUTSIDE RECORDS SUMMARY | 2024-09-29 10:47 | XMS_ITS | Encounter Summary ---
Author Organization [facility] Address [address] [place] [address] Care Team Providers Care Manager Cleaning Name Role Phone Casimiro Cat MD Primary Care Provider +1- [phone] Stephanie Espinosa Primary Care Provider Unav ailable Encounter Details Date Type Department Care Team Description 08/23/2022 Pt. Non Urgent Medical Question [facility] 175 [facility] [address] [place] [phone] Tobi Moise MD 175 [facility] [address] [place] [address] Social History Tobacco Use Types Packs/Day Years [...] filedocumented in this encounter Care Teams Manager Cleaning Relationship Specialty Start Date End Date Casimiro Cat MD [address] [place] [address] PCP - General Internal Medicine 09/13/11 03/15/24 Stephanie Espinosa PA [address] [place] [address] PCP - General Medical Physician Sales Contracts Analyst 03/16/24 documented as of this encounter
--- OUTSIDE RECORDS SUMMARY | 2024-09-29 10:47 | XMS_ITS | Encounter Summary ---
Author Organization [facility] Address [address] [place] [address] Care Team Providers Care Zoo Director Name Role Phone Casimiro Cat MD Primary Care Provider +1- [phone] Stephanie Espinosa Primary Care Provider Unav ailable Encounter Details Date Type Department Care Team Description 04/14/2020 Pt. Non Urgent Medical Question Rheumatology - [address] [address] Epifanio Carl PA Social History Tobacco Use [...] Progress Notes * Mary Reddy L.P.N. 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 A good friend works for [employer] . She checked with there company and suggested the following ans she sent to me. Curcum-Evail 1 per day and OmegAvail OZ0100 1 per day .. Just w ant your thoughts and if you see an issue, Please let me know.. I have enough for a couple months.. Thanks Orestes documented in this encounter Plan of Treatment Not on file documented as of this encounter Visit Diagnoses Not on filedocumented in this encounter Care Teams Zoo Director Relationship Specialty Start Date End Date Casimiro Cat MD [address] [place] [address] PCP - General Internal Medicine 09/13/11 03/15/24 Stephanie Espinosa PA [address] [place] [address] PCP - General Medical Physician Special Effects Makeup Artist 03/16/24 documented as of this encounter
--- OUTSIDE RECORDS SUMMARY | 2024-09-29 10:47 | XMS_ITS | Encounter Summary ---
Author Organization [facility] Address [address] [place] [address] Care Team Providers Care Flower Stripper Name Role Phone Casimiro Cat MD Primary Care Provider +1- [phone] Stephanie Espinosa Primary Care Provider Unav ailable Encounter Details Date Type Department Care Team Description 04/07/2015 REGIONAL ENVIRONMENTAL MANAGER/[facility] Report Medical Records [address] [place] [address] Abstract, Provider Social History Tobacco Use Types [...] on filedocumented in this encounter Care Teams Flower Stripper Relationship Specialty Start Date End Date Casimiro Cat MD [address] [place] [address] PCP - General Internal Medicine 09/13/11 03/15/24 Stephanie Espinosa PA [address] [place] [address] PCP - General Medical Physician Financial Management Consultant 03/16/24 documented as of this encounter
--- OUTSIDE RECORDS SUMMARY | 2024-09-29 10:47 | XMS_ITS | Encounter Summary ---
Author Organization [facility] Address [address] [place] [address] Care Team Providers Care Plsql Developer Name Role Phone Casimiro Cat MD Primary Care Provider +1- [phone] Stephanie Espinosa Primary Care Provider Unav ailable Encounter Details Date Type Department Care Team Description 01/10/2020 Pt. Non Urgent Medical Question Rheumatology - [address] [address] Jair Bowling MD Social History Tobacco Use [...] encounter Miscellaneous Notes * Telephone Encounter - Meredith Brice M.A. - 01/10/2020 9:46 AM EDTFrom: Angel Clay To: Jair Bowling MD Sent: 01/10/2020 9:42 AM EDT Subject: Both Hands Pain & Stiffness Good Morning Over the last month or so my hands have been soar and stiff...Every morning they are the worst.. Sounds like arthritis starting in my hands... Just want to get them checked (x-ray) to confirm and see if we can do something... I would like a Friday appointment (any time) as my wi fe hadfridays off... Thanks Orestes Clay documented in this encounter Plan of Treatment Not on file documented as of this encounter Visit Diagnoses Not on filedocumented in this encounter Care Teams Plsql Developer Relationship Specialty Start Date End Date Casimiro Cat MD [address] [place] [address] PCP - General Internal Medicine 09/13/11 03/15/24 Stephanie Espinosa PA [address] [place] [address] PCP - General Medical Physician Sanding Machine Operator Or Tender 03/16/24 documented as of this encounter
--- OUTSIDE RECORDS SUMMARY | 2024-09-29 10:47 | XMS_ITS | Encounter Summary ---
Author Organization [facility] Address [address] [place] [address] Care Team Providers Care Director Of Psychiatry Name Role Phone Casimiro Cat MD Primary Care Provider +1- [phone] Stephanie Espinosa Primary Care Provider Unav ailable Reason for Visit * Reason Comments E-prescribe Rx Request Encounter Details Date Type Department Care Team Description 07/05/2021 Refill Adult Medicine [address] [address] Cher Sy PA-C E-prescribe Rx Request Social History Tobacco Use [...] Telephone Encounter - Valerie Roberts M.A. - 07/06/2021 2:31 PM EST Mail Order Pharmacy - needs sent to ship to patient on time Last appt- 05/04/21 Next appt- 10/18/21 Lab Results Component Value Date CHOL 254 05/23/2021 LDL 139 05/23/2021 HDL 62 05/23/2021 TRIG 267 05/23/2021 * Telephone Encounter - Nasima Mendoza - 07/06/2021 12:13 PM EST Duplicate request. Still too soon. Please disregard documented in this encounter Plan of Treatment Not on file documented as of this encounter Visit Diagnoses Not on filedocumented in this encounter Care Teams Director Of Psychiatry Relationship Specialty Start Date End Date Casimiro Cat MD [address] [place] [address] PCP - General Internal Medicine 09/13/11 03/15/24 Stephanie Espinosa PA [address] [place] [address] PCP - General Medical Physician Security Compliance Specialist 03/16/24 documented as of this encounter
--- OUTSIDE RECORDS SUMMARY | 2024-09-29 10:48 | XMS_ITS | Encounter Summary ---
Author Organization [facility] Address [address] [place] [address] Care Team Providers Care Mold Making Plastics Sheets Supervisor Name Role Phone Casimiro Cat MD Primary Care Provider +1- [phone] Stephanie Espinosa Primary Care Provider Unav ailable Encounter Details Date Type Department Care Team Description 03/08/2024 Pt. Non Urgent Medical Question [facility] 175 [facility] [address] [place] [phone] Mary Lenz MD 175 [facility] [address] [place] [address] Social History Tobacco Use Types Packs/Day Years [...] encounter Miscellaneous Notes * Telephone Encounter - Oscar Coy - 03/23/2024 8:20 AM EDT Believe this is old, ill done this message documented in this encounter Plan of Treatment Not on file documented as of this encounter Visit Diagnoses Not on filedocumented in this encounter Care Teams Mold Making Plastics Sheets Supervisor Relationship Specialty Start Date End Date Casimiro Cat MD [address] [place] [address] PCP - General Internal Medicine 09/13/11 03/15/24 Stephanie Espinosa PA [facility] [place] [address] PCP - General Medical Physician Accounts Payable Representative 03/16/24 documented as of this encounter
--- OUTSIDE RECORDS SUMMARY | 2024-09-29 10:48 | XMS_ITS | Encounter Summary ---
Author Organization [facility] Address [address] [place] [address] Care Team Providers Care Qa Tech Name Role Phone Casimiro Cat MD Primary Care Provider +1 [phone] Stephaine Espinosa Primary Care Provider Unav ailable Reason for Visit * Reason Comments E-prescribe Rx Request Encounter Details Date Type Department Care Team Description 10/19/2021 Refill Adult Medicine - [place] [address] [place] [address] Cher Sy PA-C E-prescribe Rx Request Social [...] encounter Miscellaneous Notes * Telephone Encounter - Arabella Hanson - 10/25/2021 10:54 AM EDT Duplicate -please close documented in this encounter Plan of Treatment Not on file documented as of this encounter Visit Diagnoses Not on filedocumented in this encounter Care Teams Qa Tech Relationship Specialty Start Date End Date Casimiro Cat MD [address] [place] [address] PCP - General Internal Medicine 09/13/11 03/15/24 Stephanie Espinosa PA [address] [place] [address] PCP - General Medical Physician Publishing Specialist 03/16/24 documented as of this encounter
--- OUTSIDE RECORDS SUMMARY | 2024-09-29 10:48 | XMS_ITS | Encounter Summary ---
Author Organization [facility] Address [address] [place] [address] Care Team Providers Care Manager Of Case Name Role Phone Casimiro Cat MD Primary Care Provider +1- [phone] Stephanie Espinosa Primary Care Provider Unav ailable Encounter Details Date Type Department Care Team Description 04/11/2014 Sql Database Administrator Report Medical Records [address] [place] [address] Didier Cavazos Social History Tobacco Use Types [...] filedocumented in this encounter Care Teams Manager Of Case Relationship Specialty Start Date End Date Casimiro Cat MD [address] [place] [address] PCP - General Internal Medicine 09/13/11 03/15/24 Stephanie Espinosa PA [address] [place] [address] PCP - General Medical Physician Developmental Services Worker 03/16/24 documented as of this encounter
--- OUTSIDE RECORDS SUMMARY | 2024-09-29 10:48 | XMS_ITS | Encounter Summary ---
Author Organization [facility] Address [address] [place] [address] Care Team Providers Care Piece Work Checker Name Role Phone Casimiro Cat MD Primary Care Provider +1- [phone] Stephanie Espinosa Primary Care Provider Unav ailable Encounter Details Date Type Department Care Team Description 12/22/2018 Orders Only Medical Records [address] [place] [address] Pelon Nick MD [address] [place] [phone] Social History Tobacco Use Types Packs/Day Years [...] Name Priority Date/Time Associated Diagnosis Comments OUTSIDE PATHOLOGY Routine 12/15/2018 documented in this encounter Results * OUTSIDE PATHOLOGY (12/15/2018) Pelon Nick MD OUTSIDE LAB documented in this encounter Visit Diagnoses Not on filedocumented in this encounter Care Teams Piece Work Checker Relationship Specialty Start Date End Date Casimiro Cat MD [address] [place] [address] PCP - General Internal Medicine 09/13/11 03/15/24 Stephanie Espinosa PA [address] [place] [address] PCP - General Medical Physician Scientific Informatics Leader 03/16/24 documented as of this encounter
--- OUTSIDE RECORDS SUMMARY | 2024-09-29 10:48 | XMS_ITS | Encounter Summary ---
Author Organization [facility] Address [address] [place] [address] Care Team Providers Care Patrol Man Name Role Phone Casimiro Cat MD Primary Care Provider [phone]- [phone] Stephanie Espinosa Primary Care Provider Unav ailable Encounter Details Date Type Department Care Team Description 01/02/2024 Pt. Non Urgent Medical Question [facility] [address] [facility] [address] [place] [id number] Mary Lenz MD 175 [facility] [address] [place] [address] Social History Tobacco Use Types Packs/Day Years [...] on filedocumented in this encounter Care Teams Patrol Man Relationship Specialty Start Date End Date Casimiro Cat MD [address] [place] [address] PCP - General Internal Medicine 09/13/11 03/15/24 Stephanie Espinosa PA [address] [place] [address] PCP - General Medical Physician Laboratory Engineer 03/16/24 documented as of this encounter
--- OUTSIDE RECORDS SUMMARY | 2024-09-29 10:48 | XMS_ITS | Encounter Summary ---
Author Organization [facility] Address [address] [place] [address] Care Team Providers Care Display Coordinator Name Role Phone Casimiro Cat MD Primary Care Provider [phone]- [phone] Stephanie Espinosa Primary Care Provider Unav ailable Encounter Details Date Type Department Care Team Description 03/07/2022 Pt. Non Urgent Medical Question [facility] [address] [facility] [address] [place] [id number] Hallie Gustafson MD 175 [facility] [address] [place], [place] [id number] Social History Tobacco Use Types Packs/Day Years [...] AM EDT documented as of this encounter Plan of Treatment Not on file documented as of this encounter Visit Diagnoses Not on filedocumented in this encounter Care Teams Display Coordinator Relationship Specialty Start Date End Date Caismiro Cat MD [address] [place] [address] PCP - General Internal Medicine 09/13/11 03/15/24 Stephanie Espinosa PA [address] [place] [address] PCP - General Medical Physician Java Web Services Developer 03/16/24 documented as of this encounter
--- OUTSIDE RECORDS SUMMARY | 2024-09-29 10:48 | XMS_ITS | Encounter Summary ---
Author Organization [facility] [employer] [facility] Address [address] [place] [address] Care Team Providers Care Communications Station Manager Name Role Phone Casimiro Cat MD Primary Care Provider [phone]- [phone] Stephanie Espinosa Primary Care Provider Unav ailable Encounter Details Date Type Department Care Team Description 12/19/2018 [facility] [address] [place] [id number] [place] [address] Social History Tobacco Use Types Packs/Day Years [...] on filedocumented in this encounter Care Teams Communications Station Manager Relationship Specialty Start Date End Date Casimiro Cat MD [address] [place] [address] PCP - General Internal Medicine 09/13/11 03/15/24 Stephanie Espinosa PA [address] [place] [address] PCP - General Medical Physician Port Cdl A Driver 03/16/24 documented as of this encounter
--- OUTSIDE RECORDS SUMMARY | 2024-09-29 10:48 | XMS_ITS | Encounter Summary ---
Author Organization [facility] Address [address] [place] [address] Care Team Providers Care Hedge Fund Accountant Name Role Phone Casimiro Cat MD Primary Care Provider [phone]- [phone] Stephanie Espinosa Primary Care Provider Unav ailable Reason for Visit * Reason Onset Date Comments Faxed Refill 04/04/2021 Encounter Details Date Type Department Care Team Description 04/04/2021 Refill Adult Medicine - [place] [address] [place] [address] Casimiro Cat MD [address] [place] [address] Faxed Refill Social History Tobacco Use Types [...] have Coronavirus / COVID-19? No / Unsure 03/22/2021 10:23 AM EDT documented as of this encounter Miscellaneous Notes * Telephone Encounter - Valerie Roberts M.A. - 04/05/2021 10:58 AM EDT Needs appt * Telephone Encounter - Nasima Mendoza - 04/04/2021 2:46 PM EDT Patient would like script to be: E-PRESCRIBED/FAXED TO PHARMACY WHEN WAS THE PATIENT'S LAST APPOINTMENT IN ADULT MEDICINE? 09/11/2020 WHEN WAS THE LAST TIME THE PATIENT SAW THEIR PCP? Same as above Does patient have an upcoming appointment? No[facility] to [facility]ill request. Appt due (THE MEDICATION REQUESTED IS ON THE MED [...] N/A Patients current insurance carrier is: Payor: [facility] / Plan: AARP MEDICARE COMPLETE $0 [id number] / Product Type: HMO [id number] documented in this encounter Plan of Treatment Not on file documented as of this encounter Visit Diagnoses Not on filedocumented in this encounter Care Teams Hedge Fund Accountant Relationship Specialty Start Date End Date Casimiro Cat MD [address] [place], [place] [phone] PCP - General Internal Medicine 09/13/11 03/15/24 Stephanie Espinosa PA [address] [place] [address] PCP - General Medical Physician Director Trial 03/16/24 documented as of this encounter
--- OUTSIDE RECORDS SUMMARY | 2024-09-29 10:48 | XMS_ITS | Encounter Summary ---
Author Organization [facility] Address [address] [place] [address] Care Team Providers Care Civil Laboratory Technician Name Role Phone Casimiro Cat MD Primary Care Provider [phone]- [phone] Stephanie Espinosa Primary Care Provider Unav ailable Encounter Details Date Type Department Care Team Description 08/24/2018 Removable Prosthodontist Report Medical Records [address] [place] [id number] Basim George MD Social History Tobacco Use [...] on filedocumented in this encounter Care Teams Civil Laboratory Technician Relationship Specialty Start Date End Date Casimiro Cat MD [address] [place] [address] PCP - General Internal Medicine 09/13/11 03/15/24 Stephanie Espinosa PA [address] [place] [address] PCP - General Medical Physician Him Specialist 03/16/24 documented as of this encounter
--- OUTSIDE RECORDS SUMMARY | 2024-09-29 10:48 | XMS_ITS | Encounter Summary ---
Author Organization [facility] [employer] [facility] Address [address] [place] [address] Care Team Providers Care Casting Carrier Name Role Phone Casimiro Cat MD Primary Care Provider +1- [phone] Stephanie Espinosa Primary Care Provider Unav ailable Encounter Details Date Type Department Care Team Description 03/16/2015 Release of Information Medical Records [address] [place] [id number] Abstract, Provider Social History Tobacco Use Types [...] on filedocumented in this encounter Care Teams Casting Carrier Relationship Specialty Start Date End Date Casimiro Cat MD [address] [place] [address] PCP - General Internal Medicine 09/13/11 03/15/24 Stephanie Espinosa PA [address] [place] [address] PCP - General Medical Physician Sectionizer 03/16/24 documented as of this encounter
--- OUTSIDE RECORDS SUMMARY | 2024-09-29 10:48 | XMS_ITS | Clinical Summary ---
Author Organization [facility] Address [address] [place] [address] Phone Care Team Providers Care County Engineer Name Role Phone Dino Cat MD Primary Care Provider [phone] Allergies No known active allergies Medications predniSONE (DELTASONE) 1 mg tablet Take 1 tablet (1 mg total) by mouth 2 (two) times a day. Take up to 3mg per day. Prescribed by rheumatology 4 Active rosuvastatin (CRESTOR) 40 mg tablet Take 1 tablet (40 mg total) by mouth daily. 4 Active benazepriL (LOTENSIN) 40 mg tablet TAKE 1 TABLET BY MOUTH DAILY 100 tablet 1 5 Active allopurinoL (ZYLOPRIM) 300 mg tablet TAKE 1 TABLET BY MOUTH DAILY 100 tablet 1 5 Active amLODIPine (NORVASC) 2.5 mg tablet TAKE 1 TABLET BY MOUTH DAILY 100 tablet 1 5 Active apixaban (Eliquis) 5 mg tabletIndicati ons:History of DVT (deep vein thrombosis) Take 0.5 tablets (2.5 mg total) by mouth 2 (two) times a day. Take 1 tablet (5 mg total) by mouth every 12 (twelve) hours. 100 tablet 1 5 Active apixaban (Eliquis) 2.5 mg tablet Take 1 tablet (2.5 mg total) by mouth 2 (two) times a day. 200 tablet 1 5 Active apixaban (Eliquis) 5 mg tabletIndicati ons:History of DVT (deep vein thrombosis) Take 0.5 tablets (2.5 mg total) by mouth 2 (two) times a day. Take 1 tablet (5 mg total) by mouth every 12 (twelve) hours. 30 each 025 Discontin ued(Reord er) Active Problems Problem Noted Date Diagnosed Date Cervical spondylosis with radiculopathy 09/09/19 Assessment & Plan (09/08/2024 11:25 AM EDT): Mr. Clay describes a little over a month of pain from the base of the interscapular area up to the neck with radiation to the left shoulder and down the left arm. Of note he is status post posterior cervical decompression about [address] Mejia and had great relief. He takes a milligram of prednisone daily for polymyalgia rheumatica and has been on a long slow taper. He is neurologically intact without any myelopathic findings. X-rays of the cervical spine show degenerative changes most significant at C6-7 where there was some loss of disc height Mr. Clay is going to add Celebrex which she has at home when he needs to take something for pain. I am going to give him a prescription for physical therapy including cervical traction. He will follow-up with us afterwards. If he is still having significant pain at that time, we can order an MRI. 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 08/30/22 Complete resolution of pain following US guided Depomedrol inj along Smeimem tendon. Will likely cancel arthroscopic surg for meniscus Overweight (BMI 25.0-29.9) 09/11/2020 Malignant neoplasm of sigmoi d colon ([facility] V24, [facility] V28) 11/06/2018 Abnormal brain MRI 05/29/2018 Overview (09/07/2024): 06/02- nonspecific findings, referred to neurology for abnormal neuro exam. Referred to ENT for paranasal sinus disease. Abnormal CXR 05/21/2018 Overview (09/07/2024): Ct Angio- f/u cxr never done in 2017 Reordered 06/02---Not done Hypercholesterolemia 12/06/2011 Retinitis pigmentosa 12/06/2011 Overview (09/07/2024): Capsulotomy 10/28 Gout 09/23/2011 Overview (09/07/2024): Intol indomethacin, motrin. Celebrex works well. allopurinol started 201409/03 allopurinol reduced to 300 mg Encounters Date Type Department Care Team Description 09/08/2024 10:30 AM EDT Consult Neurosurgery [facility] [address] [address] Alonzo Barbosa PA Cervical spondylosis with radiculopathy (Primary Dx); Hx of neck surgery 09/08/2024 9:10 AM EDT - 09/08/2024 11:59 PM EDT Hospital Encounter [facility] Xray [address] [place] [phone] Neck pain Discharge Disposition: Home or Self Care 08/25/2024 8:30 AM EDT Office Visit Adult Medicine [facility] [address] [place] [phone] Carole Lopez NP Primary hypertension (Primary Dx); History of DVT (deep vein thrombosis); Hx of neck surgery; Hyperlipidemia, unspecified hyperlipidemia type 08/25/2024 Telephone Neurosurgery [facility] [address] [phone] Rosa Mejia MD Referral (Prev patient) 07/06/2024 3:30 PM EST Office Visit Orthopedic Surgery - [place] [address] [place] [address] Netta Mathis PA Trigger middle finger of right hand (Primary Dx); Trigger ring finger of right hand; Trigger ring finger of left hand from Last 3 Months Immunizations Name Administration Dates Next Due Influenza Quadravalent, 0.5m l (Fluzone High-dose) 65yo and older 03/24/2022 Influenza Quadravalent, MDCK , 0.5ml, preservative free (Flucelvax) 6mo and older 03/22/2021,02/22/2020 Influenza Quadravalent, MDCK , 0.5ml, with preservative (Flucelvax) 6mo and older 04/07/2018,04/23/2017 Influenza trivalent, 0.5mL ( Fluad) 65yo and older 04/10/2019 Influenza trivalent, 0.5mL ( Fluzone High-dose) 65yo and older 03/09/2024,04/25/2023 Influenza trivalent, with pr eservative (Fluzone; Afluria) 6mo and older 05/21/2016,07/01/2013,06/30/2012 Pneumococcal Conjugate 04/26/2014 Pneumococcal polysaccharide 23 valent (Pneumovax 23) 2yo and older 05/15/2022 RSV, bivalent, protein subun it RSVpreF, 0.5mL, Preservative Free (Arexvy) 60yo and older 06/17/2023 Td Tetanus diptheria (Tdvax) 7yo and older 05/15 Tdap Tetanus diptheria acell ular pertussis (Boostrix; Adacel) 7yo and older 05/15/2022,12/05/2011 Zoster recombinant (Shingrix ) 19yo and older 09/02/2023,05/27/2023 Surgical History Surgery Date Site/Laterality Comments SHOULDER SURGERY PROCEDURE: HISTORICAL SHOULDER SURGERY; COMMENT: bilateral rotator cuff repair 1 on left, 3 on right NECK SURGERY 05/2015 PROCEDURE: HISTORICAL NECK SURGERY; COMMENT: C5-7 decompression BOWEL RESECTION 12/15/2018 PROCEDURE: HISTORICAL BOWEL RESECTION; COMMENT: laparoscopic right colectomy with intracorporeal anastomosis and laparoscopic to open low anterior resection for a premalignant polyp of the hepatic flexure and a malignant sessile polyp of the rectosigmoid, proximal rectum ; Dr. Nick HAND SURGERY 11/26/2023 Left PROCEDURE: HISTORICAL HAND SURGERY; COMMENT: left A1 mary kay/TF release, index and small finger Medical History Medical History Date Comments Gout DX:Gout HTN (hypertension) DX:HTN (hyper tension) Shoulder pain 02/15/2014 DX:Shoulder pain ; COMMENT: Right arm radiculopathy 02/28 Retinitis pigmentosa 12/06/2011 DX:Retiniti s pigmentosa; COMMENT: Capsulotomy 10/28 Polymyalgia rheumatica (CMS/HCC V24) 11/24/2014 DX:Polymyalgia rheumatica (HCC) Neoplasm of uncertain behavi or of skin 10/13/2014 DX:Neoplasm of uncertain beh avior of skin; COMMENT: Right scalp---bx lymphocytic infiltrate Hyperlipemia 12/06/2011 DX:Hyperlipemia Hx pulmonary embolism 04/27/2014 DX:Hx pulm onary embolism; COMMENT: R sided PE 04/15/14 R rotator cuff surgery Diverticulosis 05/23/2015 DX:Diverticulosi s; COMMENT: Colonscopy 12/2012 History of DVT (deep vein thrombosis) 04/30/2014 DX:History of DVT (deep vein thrombosis); COMMENT: Right arm Provoked. Recommend 3 month treatment History of pulmonary embolism 11/17/2015 DX :History of pulmonary embolism; COMMENT: 04/29 post rorator cuff repair. Anticoagulated on Coumadin x 3 mo. History of melanoma 10/13/2014 DX:History o f melanoma; COMMENT: Right shoulder Family History Medical History Relation Name Comments Hypertension Father Stroke Father Breast cancer Mother Aunt also Other: Celiac disease Sister Relation Name Status Comments Father Mother Sister Social History Tobacco Use Types Packs/Day Years Used Date Smoking Tobacco: Former Smokeless Tobacco: Never Tobacco Cessation:Counseling Given: Not Answered Alcohol Use Standard Drinks/Week Comments Yes 14 (1 standard drink = 0.6 oz pu re alcohol) Housing Instability Answer Date Recorde d Are you worried that in the next 2 months you may not have stable housing? No 08/24/2024 Food Access & Nutrition Answer Date Rec orded Do you have access to a vari ety of food including fruits and vegetables? Yes 08/24/2024 Access to Healthcare Answer Date Record ed Within the last 3 months, ho w many times did you visit the emergency department for your medical care? 0 08/24/2024 Health Literacy Answer Date Recorded How often do you need to hav e someone help you when you read instructions, pamphlets, or other written material from your doctor or pharmacy? Never 08/24/2024 Caregiver: How often do you need to have someone help you when you read instructions, pamphlets, or other written material from your doctor or pharmacy? Not on file 08/24/2024 Transportation Answer Date Recorded Has the lack of transportati on kept you from meetings, work, or from getting things needed for daily living? No Has the lack of transportati on kept you from medical appointments or from getting medications? No 08/24/2024 Social Isolation Answer Date Recorded How often do you feel lonely or isolated from th ose around you? Never 08/24/2024 Food Risk Answer Date Recorded Within the past 12 months we worried whether our food would run out before we got money to buy more. Never true 08/24/2024 Within the past 12 months th e food we bought just didn't last and we didn't have money to get more. Never true 08/24/2024 Dependent Care Answer Date Recorded Do you need help finding or paying for care for your loved ones. For example, child day care center worker or elderly care for an older adult? No 08/24/2024 Education Answer Date Recorded Do you think completing more education or training, like finishing a GED, going to college, or learning a trade, would be helpful for you? No 08/24/2024 Employment and Income Answer Date Recor ded During the last four weeks, have you been actively looking for work? No 08/24/2024 Living Situation Answer Date Recorded What is your living situation? 0 08/24/2024 Interpersonal Safety Answer Date Record ed Physical Abuse 06/03/2024 Verbal Abuse 06/03/2024 Sex and Gender Information Value Date Recorded Sex Assigned at Not on file Legal Sex Male 6:51 PM EST Gender Identity Not on file Sexual Orientation Not on file Obstetrics History Last Filed Vital Signs Vital Sign Reading Time Taken Comments Blood Pressure 140/80 08/25/2024 8:31 AM EDT Pulse 81 08/25/2024 8:31 AM EDT Temperature 36.1 ??C (97 ??F) 08/25/2024 8:31 AM EDT Respiratory Rate 16 08/25/2024 8:31 AM EDT Oxygen Saturation 99% 06/03/2024 10:26 AM EST Inhaled Oxygen Concentration - - Weight 76.4 kg (168 lb 6.9 oz) 09/08/2024 9:57 A M EDT Height 177 cm (5' 9.69 ) 09/08/2024 9:57 AM EDT Body Mass Index 24.38 09/08/2024 9:57 AM EDT Plan of Treatment Upcoming Encounters Date Type Department Care Team (Late st Contact Info) Description 10/22/2024 2:30 PM EDT Office Visit Neurosurgery [place] [facility] [address] [place] [phone] Alonzo Barbosa, STEPHEN [address] [place] [address] 03/02/2025 8:30 AM EDT Office Visit Adult Medicine [facility] [address] [place] [address] Dino Cat MD [address] [place] [address] Health Maintenance Due Date Last Done Comments Hepatitis C Screening 05/18/2022 Medicare Annual Wellness Visit 05/18/2022 Pneumococcal Vaccine: 50+ Years (2 of 2 - PCV) 05/15/2023 05/15/2022 COVID-19 Vaccine (7 - Moderna risk season) 2024 03/09/2024, 05/27/2023, 03/24/2022, Additional history exists Hypertension/CHF/CAD Annual BMP Blood Test 10/22/2024 10/23/2023 Falls Risk Assessment 06/03/2025 06/03/2024 Depression Screening 08/24/2025 08/24/2024 Social Influencers of Health Screening 08/24/2025 08/24/2024 Cholesterol Screening (Lipid Panel) 10/22/2028 10/23/2023 DTaP,Tdap,and Td Vaccines (4 - Td or Tdap) 05/15/2032 05/15/2022, 05/15/2022, 12/05/2011 Colorectal Cancer Screening: Colonoscopy 06/03/2034 06/03/2024 Abdominal Aortic Aneurysm (AAA) Screen Completed 01/01/2022 RSV Immunization Adult Patients Completed 06/17/2023 Zoster Vaccines Completed 09/02/2023, 05/27/2023 Influenza Vaccine Completed 03/09/2024, , 03/24/2022, Additional history exists HIB Vaccines Aged Out No longer eligi ble based on patient's age to complete this topic HPV Vaccines Aged Out No longer eligi ble based on patient's age to complete this topic Hepatitis A Vaccines Aged Out No long er eligible based on patient's age to complete this topic Hepatitis B Vaccines Aged Out No long er eligible based on patient's age to complete this topic IPV Vaccines Aged Out No longer eligi ble based on patient's age to complete this topic MMR Vaccines Aged Out No longer eligi ble based on patient's age to complete this topic Meningococcal ACWY Vaccine Aged Out N o longer eligible based on patient's age to complete this topic Meningococcal B Vaccine Aged Out No l onger eligible based on patient's age to complete this topic RSV Immunization Patients Under 20 months Aged Out No longer eligible based on patient's age to complete this topic Varicella Vaccines Aged Out No longer eligible based on patient's age to complete this topic Procedures Procedure Name Priority Date/Time Associated Diagnosis Comments XR CERVICAL SPINE 4-5 VIEWS Routine 09/08/2024 9:31 AM EDT Neck pain AL INJECTION SINGLE TENDON SHEATH OR LIGAMENT APONEUROSIS Routine 07/06/2024 3:30 PM EST Trigger middle finger of right hand Trigger ring finger of right hand Trigger ring finger of left hand AL INJECTION SINGLE TENDON SHEATH OR LIGAMENT APONEUROSIS Routine 07/06/2024 3:30 PM EST Trigger middle finger of right hand Trigger ring finger of right hand Trigger ring finger of left hand AL INJECTION SINGLE TENDON SHEATH OR LIGAMENT APONEUROSIS Routine 07/06/2024 3:30 PM EST Trigger middle finger of right hand Trigger ring finger of right hand Trigger ring finger of left hand COLONOSCOPY Routine 06/03/2024 10:05 AM EST Personal history of colon cancer US ABDOMINAL AORTA REAL TIME SCREEN STUDY AAA Routine 01/01/2022 7:48 AM EDT Encounter for screening for cardiovascular disorders from Last 3 Months or Most Recently Relevant to Health Maintenance Results * XR Cervical Spine 4-5 Views (09/08/2024 9:31 AM EDT) Anatomical Region Laterality Modality Spine, C-spine Radiographic Gerda ging 09/08/2024 9:54 AM EDT Impressions 09/08/2024 9:55 AM EDT Alignment is anatomic and there is no abnormal relative bony motion with flexion and extension. ??There is good range of motion. ??Narrowing of the C6-7 disc spaces consistent with degenerative disc disease and/or postoperative change. Code 51220 -------- FINAL REPORT -------- Dictated By: Luiz Stevenson Dictated Date: 09/08/2024 09:54 ET Assigned Physician: Luiz Stevenson Reviewed and Electronically Signed By: Luiz Stevenson Signed Date: 09/08/2024 09:55 ET Workstation ID: [id number] Transcribed By: Self Edit Transcribed Date: 09/08/2024 09:54 ET Narrative 09/08/2024 9:55 AM EDT HISTORY: The patient is a 69-year-old male with bilateral upper extremity numbness. ??The patient underwent cervical spine surgery approximately 10 years previously. FINDINGS: Lateral views of the cervical spine in neutral, flexion, and extension positions, along with an AP view, demonstrate normal alignment of the bony structures. ??No fracture is seen. ??There is narrowing of the C6-7 disc space consistent with degenerative disc disease and/or postoperative change. ??The remaining disc spaces are well-maintained. ??There is no abnormal relative bony motion with flexion and extension. ??Good range of motion is seen. ??There is no prevertebral soft tissue swelling. Procedure Note Luiz Stevenson MD - 09/08/2024 HISTORY: The patient is a 69-year-old male with bilateral upper extremitynumbness. The patient underwent cervical spine surgery approximately 10years previously. FINDINGS: Lateral views of the cervical spine in neutral, flexion, andextension positions, along with an AP view, demonstrate normal alignmentof the bony structures. No fracture is seen. There is narrowing of theC6-7 disc space consistent with degenerative disc disease and/orpostoperative change. The remaining disc spaces are well-maintained.There is no abnormal relative bony motion with flexion and extension.Good range of motion is seen. There is no prevertebral soft tissueswelling. IMPRESSION: Alignment is anatomic and there is no abnormal relative bony motion withflexion and extension. There is good range of motion. Narrowing of theC6-7 disc spaces consistent with degenerative disc disease and/orpostoperative change. Code 02028 -------- FINAL REPORT -------- Dictated By: Luiz Stevenson Dictated Date: 09/08/2024 09:54 ET Assigned Physician: Luiz Stevenson Reviewed and Electronically Signed By: Luiz Stevenson Signed Date: 09/08/2024 09:55 ET Workstation ID: [id number] Transcribed By: Self Edit Transcribed Date: 09/08/2024 09:54 ET Alozno MITCHELL IMG XR PROCEDURES Final Resul t * AL INJECTION SINGLE TENDON SHEATH OR LIGAMENT APONEUROSIS (07/06/2024 3:30 PM EST) Narrative Netta Mathis PA - 07/06/2024 3:30 PM EST STEPHEN Phelan ? 07/07/2024 10:03 AM Hand / UE Inj/Asp: L ring A1 for trigger finger Indications: pain Details: 25 G needle, volar approach Medications: 0.5 mL lidocaine 1 %; 20 mg triamcinolone acetonide 40 mg/mL Informed Consent: ??Relevant images/test results available and reviewed: yes ?Health status cleared: ??Yes ??Procedure/treatment, purpose, treatment alternatives, risks/potential complications and benefits explained: yes ?Risk/complications/benefits details: ??Risks of infection, thinning of the skin and temporary skin discoloration discussed. ??Discussed risks of temporary increased pain after injection and swelling and mild redness at injection site for couple days. ??Explained occasionally cortisone injection can cause facial flushing temporarily. ??Benefits pain management. ??For postop injection pain ice, Tylenol and/or NSAIDs if patient can take ??Patient questions answered: yes ?Patient agrees, verbalizes understanding, and wants to proceed: yes ?Consent given by: ??Patient ??Informed consent discussion completed by Physician/JUAN J with patient: ?? Verbal ??Pre-procedure timeout performed: yes ?? us Netta MITCHELL IN CLINIC/BEDSIDE ORDERABLES Final Result * AL INJECTION SINGLE TENDON SHEATH OR LIGAMENT APONEUROSIS (07/06/2024 3:30 PM EST) Netta Salgado PA - 07/06/2024 3:30 PM EST STEPHEN Phelan ? 07/07/2024 10:03 AM Hand / UE Inj/Asp: R ring A1 for trigger finger Indications: pain Details: 25 G needle, volar approach Medications: 30 mg triamcinolone acetonide 40 mg/mL; 0.5 mL lidocaine 1 % Informed Consent: ??Relevant images/test results available and reviewed: yes ?Health status cleared: ??Yes ??Procedure/treatment, purpose, treatment alternatives, risks/potential complications and benefits explained: yes ?Risk/complications/benefits details: ??Risks of infection, thinning of the skin and temporary skin discoloration discussed. ??Discussed risks of temporary increased pain after injection and swelling and mild redness at injection site for couple days. ??Explained occasionally cortisone injection can cause facial flushing temporarily. ??Benefits pain management. ??For postop injection pain ice, Tylenol and/or NSAIDs if patient can take ??Patient questions answered: yes ?Patient agrees, verbalizes understanding, and wants to proceed: yes ?Consent given by: ??Patient ??Informed consent discussion completed by Physician/JUAN J with patient: ?? Verbal ??Pre-procedure timeout performed: yes ?? us Netta MITCHELL IN CLINIC/BEDSIDE ORDERABLES Final Result * AL INJECTION SINGLE TENDON SHEATH OR LIGAMENT APONEUROSIS (07/06/2024 3:30 PM EST) Narrative Netta Mathis PA - 07/06/2024 3:30 PM EST STEPHEN Phelan ? 07/07/2024 10:03 AM Hand / UE Inj/Asp: Heron toney A1 for trigger finger Indications: pain Details: 25 G needle, volar approach Medications: 30 mg triamcinolone acetonide 40 mg/mL; 0.5 mL lidocaine 1 % Informed Consent: ??Relevant images/test results available and reviewed: yes ?Health status cleared: ??Yes ??Procedure/treatment, purpose, treatment alternatives, risks/potential complications and benefits explained: yes ?Risk/complications/benefits details: ??Risks of infection, thinning of the skin and temporary skin discoloration discussed. ??Discussed risks of temporary increased pain after injection and swelling and mild redness at injection site for couple days. ??Explained occasionally cortisone injection can cause facial flushing temporarily. ??Benefits pain management. ??For postop injection pain ice, Tylenol and/or NSAIDs if patient can take ??Patient questions answered: yes ?Patient agrees, verbalizes understanding, and wants to proceed: yes ?Consent given by: ??Patient ??Informed consent discussion completed by Physician/JUAN J with patient: ?? Verbal ??Pre-procedure timeout performed: yes ?? us Netta MITCHELL IN CLINIC/BEDSIDE ORDERABLES Final Result * COLONOSCOPY Anesthesia - MAC; [facility] ENDOSCOPY (06/03/2024 10:05 AM EST) Anatomical Region Laterality Modality Endoscopy 06/03/2024 9:45 AM EST Impressions 06/03/2024 10:08 AM EST - Patent end-to-side ileo-colonic anastomosis, ? characterized by healthy appearing mucosa. ? - Patent end-to-side colo-colonic anastomosis, ? characterized by healthy appearing mucosa. ? - One 5 mm polyp at the splenic flexure, removed with ? a cold snare. Resected and retrieved. ? - Diverticulosis in the sigmoid colon. ? - Non-bleeding internal hemorrhoids. ? - The examination was otherwise normal on direct and ? retroflexion views. Recommendation: ?- Discharge patient to home. ? - High fiber diet. ? - Continue present medications. ? - Resume Eliquis (apixaban) at prior dose tomorrow. ? - Await pathology results. ? - Repeat colonoscopy for surveillance based on ? pathology results. ? - Return to GI office PRN. Narrative 06/03/2024 10:08 AM EST [facility] GI Patient Name: Angel Clay Procedure Date: 06/03/2024 9:45 AM Date of : 1955 Age: 68 Gender: Male Note Status: Finalized Attending MD: Estuardo Geronimo MD, Procedure Date No Time: 06/03/2024 Procedure: ? Colonoscopy Indications: ? High risk colon cancer surveillance: Personal history ? of colonic polyps, High risk colon cancer ? surveillance: Personal history of colon cancer Providers: ? Estuardo Geronimo MD Referring MD: ?Estuardo Geronimo MD Medicines: ? Monitored Anesthesia Care Complications: ? No immediate complications. Estimated Blood Loss: ? Estimated blood loss: none. Procedure: ? Pre-Anesthesia Assessment: ? - ASA Grade Assessment: III - A patient with severe ? systemic disease. ? - After reviewing the risks and benefits, the patient ? was deemed in satisfactory condition to undergo the ? procedure. ? After I obtained informed consent, the scope was ? passed under direct vision. Throughout the procedure, ? the patient's blood pressure, pulse, and oxygen ? saturations were monitored continuously.The Olympus ? Pediatric Colonoscope was introduced through the anus ? and advanced to the ileocolonic anastomosis. The ? colonoscopy was performed without difficulty. The ? patient tolerated the procedure well. The quality of ? the bowel preparation was good. Findings: ?There was evidence of a prior end-to-side ileo- colonic ? anastomosis in the ascending colon. This was patent ? and was characterized by healthy appearing mucosa. The ? anastomosis was traversed. ? There was evidence of a prior end-to-side colo-colonic ? anastomosis in the proximal rectum. This was patent ? and was characterized by healthy appearing mucosa. ? A 5 mm polyp was found in the splenic flexure. The ? polyp was sessile. The polyp was removed with a cold ? snare. Resection and retrieval were complete. ? Estimated blood loss was minimal. ? A few small-mouthed diverticula were found in the ? sigmoid colon. ? Non-bleeding internal hemorrhoids were found during ? retroflexion. The hemorrhoids were small. ? The exam was otherwise without abnormality on direct ? and retroflexion views. Procedure Code(s): ? --- Professional --- ? 60759, Colonoscopy, flexible; with removal of ? tumor(s), polyp(s), or other lesion(s) by snare ? technique Diagnosis Code(s): ? --- Professional --- ? Z86.010, Personal history of colonic polyps ? Z85.038, Personal history of other malignant neoplasm ? of large intestine ? D12.3, Benign neoplasm of transverse colon (hepatic ? flexure or splenic flexure) ? Z98.0, Intestinal bypass and anastomosis status CPT copyright 2020 [employer]. All rights reserved. The codes documented in this report are preliminary and upon assistant boiler operator review may be revised to meet current compliance requirements. Estuardo Geronimo MD 06/03/2024 10:08:31 AM This report has been signed electronically.Estuardo Geronimo MD Number of Addenda: 0 Note Initiated On: 06/03/2024 9:45 AM Scope In: Scope Out: ? Endoscopy Department at [facility] - [address] [place] [address], ? [place] [address] Procedure Note Estuardo Geronimo MD - 06/03/2024 [facility] GI Patient Name: Angel Clay Procedure Date: 06/03/2024 9:45 AM Date of : 1955 Age: 68 Gender: Male Note Status: Finalized Attending MD: Estuardo Geronimo MD, Procedure Date No Time: 06/03/2024 Procedure: Colonoscopy Indications: High risk colon cancer surveillance: Personalhistory of colonic polyps, High risk colon cancer surveillance: Personal history of colon cancer Providers: Estuardo Geronimo MD Referring MD: Estuardo Geronimo MD Medicines: Monitored Anesthesia Care Complications: No immediate complications. Estimated Blood Loss: Estimated blood loss: none. Procedure: Pre-Anesthesia Assessment: - ASA Grade Assessment: III - A patient with severe systemic disease. - After reviewing the risks and benefits, thepatient was deemed in satisfactory condition to undergo the procedure. After I obtained informed consent, the scope was passed under direct vision. Throughout theprocedure, the patient's blood pressure, pulse, and oxygen saturations were monitored continuously.The Olympus Pediatric Colonoscope was introduced through theanus and advanced to the ileocolonic anastomosis. The colonoscopy was performed without difficulty. The patient tolerated the procedure well. The qualityof the bowel preparation was good. Findings: There was evidence of a prior clp-yx-xfwxjjxd-colonic anastomosis in the ascending colon. This was patent and was characterized by healthy appearing mucosa.The anastomosis was traversed. There was evidence of a prior rxv-vi-grclvuab-colonic anastomosis in the proximal rectum. This was patent and was characterized by healthy appearingmucosa. A 5 mm polyp was found in the splenic flexure. The polyp was sessile. The polyp was removed with acold snare. Resection and retrieval were complete. Estimated blood loss was minimal. A few small-mouthed diverticula were found in the sigmoid colon. Non-bleeding internal hemorrhoids were found during retroflexion. The hemorrhoids were small. The exam was otherwise without abnormality ondirect and retroflexion views. 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 All rights reserved. The codes documented in this report are preliminary and upon assistant boiler operator reviewmay be revised to meet current compliance requirements. Estuardo Geronimo MD 06/03/2024 10:08:31 AM This report has been signed electronically.Estuardo Geronimo MD Number of Addenda: 0 Note Initiated On: 06/03/2024 9:45 AM Scope In: Scope Out: Endoscopy Department at [facility] - [address] [place] [id number] IMPRESSION: - Patent end-to-side ileo-colonic anastomosis, characterized by healthy appearing mucosa. - Patent end-to-side colo-colonic anastomosis, characterized by healthy appearing mucosa. - One 5 mm polyp at the splenic flexure, removedwith a cold snare. Resected and retrieved. - Diverticulosis in the sigmoid colon. - Non-bleeding internal hemorrhoids. - The examination was otherwise normal on directand retroflexion views. Recommendation: - Discharge patient to home. - High fiber diet. - Continue present medications. - Resume Eliquis (apixaban) at prior dosetomorrow. - Await pathology results. - Repeat colonoscopy for surveillance based on pathology results. - Return to GI office PRN. Estuardo Geronimo MD GI~PROCEDURE ORDERABLES Final Result * US ABDOMINAL AORTA REAL TIME SCREEN STUDY AAA (01/01/2022 7:48 AM EDT) Anatomical Region Laterality Modality Ultrasound 11/09/2021 12:2 5 PM EDT Narrative 01/01/2022 11:41 AM EDT US ABDOMINAL AORTA REAL TIME SCREEN STUDY AAA ABDOMINAL AORTA SCREENING ULTRASOUND History: ??Screening for abdominal aortic aneurysm. Comparison: None. FINDINGS: ??The proximal aorta measures 2.4 cm in diameter. The mid aorta measures 1.8 cm in diameter. The distal aorta measures 1.7 cm in diameter. No periaortic fluid collection is seen. The aortic bifurcation is normal in appearance. The proximal bilateral common iliac arteries are normal in caliber. IMPRESSION: IMPRESSION: No visualized abdominal aortic aneurysm. Procedure Note Mercedes Mckoy MD - 06/04/2022 US ABDOMINAL AORTA REAL TIME SCREEN STUDY AAA ABDOMINAL AORTA SCREENING ULTRASOUND History: Screening for abdominal aortic aneurysm. Comparison: None. FINDINGS: The proximal aorta measures 2.4 cm in diameter. The mid aortameasures 1.8 cm in diameter. The distal aorta measures 1.7 cm in diameter. No periaorticfluid collection is seen. The aortic bifurcation is normal in appearance. The proximal bilateralcommon iliac arteries are normal in caliber. IMPRESSION: IMPRESSION: No visualized abdominal aortic aneurysm. us C Jonatan Cat MD [facility] US PROCEDURES Final Result from Last 3 Months or Most Recently Relevant to Health Maintenance Insurance [employer] MEDICARE Advance Directives Documents on File Type Date Recorded Patient Ui Programmer Expl anation Health Care Decision (hx) 12/15/2018 AD CASTELLANOS DIRECTIVE Health Care Decision (hx) 12/15/2018 AD CASTELLANOS DIRECTIVE Health Care Decision (hx) 12/15/2018 AD CASTELLANOS DIRECTIVE Health Care Decision (hx) 12/15/2018 AD CASTELLANOS DIRECTIVE Health Care Decision (hx) 12/15/2018 AD CASTELLANOS DIRECTIVE Care Teams County Engineer Relationship Specialty Start Date End Date Dino Cat MD [address] [place] [id number] PCP - General Internal Medicine 07/29/24
--- OUTSIDE RECORDS SUMMARY | 2024-09-29 10:48 | XMS_ITS | Clinical Summary ---
Author Organization [facility] Address [address] [place] [address] Care Team Providers Care Banana Loader Name Role Phone Estuardo Geronimo MD Unavailable [phone] Allergies No known active allergies Medications allopurinol (ZYLOPRIM) 300 MG tablet Take 1 tablet (300 mg total) by mouth daily. 4 Active amLODIPine (NORVASC) 2.5 MG tablet Take 1 tablet (2.5 mg total) by mouth daily. 3 Active benazepril (LOTENSIN) 40 MG tablet Take 1 tablet (40 mg total) by mouth daily. 3 Active Multiple Vitamins-Ray als (Centrum Silver 50+Men) Tab Active predniSONE (DELTASONE) 1 MG tablet Take 1 tablet (1 mg total) by mouth daily. 1mg po in am and 2.5mg in the pm Active apixaban (ELIQUIS) 5 MG tabletIndicati ons:History of DVT (deep vein thrombosis),Hi story of pulmonary embolism Take 0.5 tablets (2.5 mg total) by mouth 2 (two) times a day. 200 tablet 3 5 Active rosuvastatin (CRESTOR) 40 MG tabletIndicati ons:Hyperchole sterolemia TAKE 1 TABLET BY MOUTH DAILY 100 tablet 2 5 Active rosuvastatin (CRESTOR) 40 MG tabletIndicati ons:Hyperchole sterolemia Take 1 tablet (40 mg total) by mouth daily. 90 tablet 1 5 09/21/19 25 Discontinued Active Problems Problem Noted Date Diagnosed Date History of tobacco use 05/26/2024 Hypercalcemia 05/10/2024 PMR (polymyalgia rheumatica) 01/28/2024 History of colon cancer 01/28/2024 Overweight (BMI 25.0-29.9) 09/11/2020 History of pulmonary embolism 11/17/2015 Overview (01/28/2024): 04/29 post rotator cuff repair. 04/07. Hosp PE. Right leg DVT. Unprovoked Hematology 07/09. Coag work up neg. Changed to eliquis 2.5 mg bid indefinitely History of melanoma 10/13/2014 Overview (01/28/2024): 09/28 s/p excision, right shoulder 06/02- could not be reached by derm, letter sent. History of DVT (deep vein thrombosis) 04/30/2014 Overview (01/28/2024): 04/29 right arm post rotator cuff repair. Retinitis pigmentosa 12/06/2011 Overview (01/28/2024): Capsulotomy 10/28 Hypercholesterolemia 12/06/2011 Hypertension 09/23/2011 Gout 09/23/2011 Overview (01/28/2024): Intol indomethacin, motrin. Celebrex works well. 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 08/30/22 Complete resolution of pain following US guided Depomedrol inj along Smeimem tendon. Will likely cancel arthroscopic surg for meniscus Abnormal brain MRI 05/29/2018 4 Overview (01/28/2024): 06/02- nonspecific findings, referred to neurology for abnormal neuro exam. Referred to ENT for paranasal sinus disease. Abnormal CXR 05/21/2018 01/28/2024 Overview (01/28/2024): Ct Angio- f/u cxr never done in 2016 Reordered 06/02---Not done Malignant melanoma 10/13/2014 4 Deep venous thrombosis (DVT) of right peroneal vein 04/30/2014 01/28/2024 Encounters Date Type Department Care Team Description 09/20/2024 [facility] [address] [place] [address] Stephanie Espinosa PA-C Hypercholesterolemia 07/13/2024 [facility] [address] [place] [address] Stephanie Espinosa PA-C Hypercholesterolemia from Last 3 Months Immunizations Immunization Administration Dates Next Due Covid-19 mRNA Primary Series Vaccine - Moderna 0.5 mL Full Dose 05/27/2023,03/24/2022,09/04/2020,08/07 Influenza, Quadrivalent (FLU CELVAX) MDCK, Preservative Free IM 03/22/2021,02/22/2020 Influenza, Trivalent (FLUAD) Adjuvanted Preservative Free IM 65 years and older 04/25/2023,03/24/2022,04/10/2019,05/21,07/01/2013,06/30/2012 Influenza, Trivalent (FLUARI X, AFLURIA, FLULAVAL, FLUZONE) Preservative Free IM 05/21/2016,07/01/2013,06/30/2012 Influenza, Unspecified 03/09/2024 Pneumococcal Conjugate, Unspecified 04/26/2014 Pneumococcal Polysaccharide 23-Valent 05/15/2022 RSV VACCINE,Uspecified 06/17/2023 Tdap 05/15/2022,12/05/2011 Zoster Vaccine Recombinant (Shingrix) 09/02/2023 ,05/27/2023 Family History Medical History Relation Name Comments Hyperlipidemia Father Hypertension Father Breast cancer Mother Relation Name Status Comments Father Mother Social History Tobacco Use Types Packs/Day Years Used Date Smoking Tobacco: Former Cigarettes Q uit: 1984 Smokeless Tobacco: Never Tobacco Cessation:Counseling Given: Not Answered Alcohol Use Standard Drinks/Week Comments Yes 14 (1 standard drink = 0.6 oz pu re alcohol) [facility] [employer] Answer Date Recorded In the past 12 months has e [employer], gas, oil, or water [employer] threatened to shut off services in your home? No 05/25/2024 Social Connection and Isolat ion Panel [NHANES] Answer Date Recorded In a typical week, how many times do you talk on the phone with family, friends, or neighbors? More than three times a week 05/25/2024 Frequency of Social Gatherin gs with Friends and Family Not on file 05/25/2024 Attends Zoroastrian Services Not on file 05/25 Active Member of Clubs or Organizations Not on f ile 05/25/2024 Attends Club or Organization Meetings Not on stephanie e 05/25/2024 Marital Status Not on file 05/25/2024 AUDIT-C Answer Date Recorded Q1: How often do you have a drink containing alcohol? 4 or more times a week 05/25/2024 Q2: How many drinks containi ng alcohol do you have on a typical day when you are drinking? 1 or 2 Frequency of Binge Drinking Not on file 05/16 PHQ-2 Answer Date Recorded PHQ-2 Total Score 0 05/25/2024 Hunger Vital Sign Answer Date Recorded Within the past 12 months, y ou worried that your food would run out before you got the money to buy more. Never true 05/25/20 24 Within the past 12 months, t he food you bought just didn't last and you didn't have money to get more. Never true 05/25/2024 PRAPARE - Transportation Answer Date Re corded In the past 12 months, has l ack of transportation kept you from medical appointments or from getting medications? No 05/16 In the past 12 months, has l ack of transportation kept you from meetings, work, or from getting things needed for daily living? No 05/25/2024 Housing Stability Vital Sign Answer Eriberto e Recorded In the last 12 months, was t here a time when you were not able to pay the mortgage or rent on time? No 05/25/2024 In the past 12 months, how m any times have you moved where you were living? 0 05/25/2024 At any time in the past 12 m [facility], were you homeless or living in a half-way (including now)? No 05/25/2024 Education Answer Date Recorded What is the highest level of school you have completed or the highest degree you have received? Some college, no degree 05/25/2024 Sex and Gender Information Value Date Recorded Sex Assigned at Male 01/26/2024 8:51 AM EDT Legal Sex Male 3:31 PM EDT Gender Identity Male 01/26/2024 8:51 AM EDT Sexual Orientation Not on file Last Filed Vital Signs Vital Sign Reading Time Taken Comments Blood Pressure 138/82 05/26/2024 10:16 AM EST Pulse 64 05/26/2024 9:29 AM EST Temperature 36.5 ??C (97.7 ??F) 05/26/2024 9:29 AM ES T Respiratory Rate 16 05/26/2024 9:29 AM EST Oxygen Saturation 97% 05/26/2024 9:29 AM EST Inhaled Oxygen Concentration - - Weight 77.9 kg (171 lb 12.8 oz) 05/26/2024 9:29 AM EST Height 170.2 cm (5' 7 ) 05/26/2024 9:29 AM EST Body Mass Index 26.91 05/26/2024 9:29 AM EST Plan of Treatment Health Maintenance Due Date Last Done Comments Hepatitis C Virus Screening 1955 Hepatitis B Vaccines (1 of 3 - Risk 3-dose series) 2016 Abdominal Aortic Aneurysm (A AA) Screening 2021 Pneumococcal Vaccines 50+ (2 of 2 - PCV) 05/15/2023 05/15/2022, 04/26/2014 COVID-19 Vaccine (6 - 2023-2 5 season) 2024 05/27/2023, 03/24/2022, 04/09/2021, Additional history exists DTaP/Tdap/Td Vaccines (3 - T d or Tdap) 05/15/2032 05/15/2022, 12/05/2011 Colonoscopy 06/03/2034 06/03/2024 RSV Vaccine 60 years and old er and Patients Completed 06/17/2023 Zoster (Shingles) Vaccine Completed 09/02/2023, 05/2023 Influenza Vaccine Completed 03/09/2024, , 03/24/2022, Additional history exists Annual Wellness Visit Discontinued 05/26/2024 Procedures Procedure Name Priority Date/Time Associated Diagnosis Comments HX GASTROENTEROLOGY COLONOSCOPY-SCAN Routine 06/03/2024 7:18 AM EST from Last 3 Months or Most Recently Relevant to Health Maintenance Results * HX GASTROENTEROLOGY COLONOSCOPY-SCAN (06/03/2024 7:18 AM EST) us Scan Gastroenterology HX AMB PROCEDURES Edited R esult - Final from Last 3 Months or Most Recently Relevant to Health Maintenance Insurance [facility] MEDICARE Care Teams Banana Loader Relationship Specialty Start Date End Date Etsuardo Geronimo MD Gastroenterology 05/26/24
--- OUTSIDE RECORDS SUMMARY | 2024-09-29 10:48 | XMS_ITS | Encounter Summary ---
Author Organization [facility] Address [address] [place] [address] Care Team Providers Care Palletizer Name Role Phone Casimiro Cat MD Primary Care Provider [phone] Stephanie Espinosa Primary Care Provider Unav ailable Encounter Details Date Type Department Care Team Description 04/21/2014 Glue Reel Operator Report Medical Records [address] [place] [id number] Didier Cavazos Social History Tobacco Use Types [...] on filedocumented in this encounter Care Teams Palletizer Relationship Specialty Start Date End Date Casimiro Cat MD [address] [place] [address] PCP - General Internal Medicine 09/13/11 03/15/24 Stephanie Espinosa PA [address] [place] [address] PCP - General Medical Physician Supervisor Warping Department 03/16/24 documented as of this encounter
--- OUTSIDE RECORDS SUMMARY | 2024-09-29 10:48 | XMS_ITS | Encounter Summary ---
Author Organization [facility] Address [address] [place] [address] Care Team Providers Care Rug Sample Beveler Name Role Phone Casimiro Cat MD Primary Care Provider [phone] Stephanie Espinosa Primary Care Provider Unav ailable Encounter Details Date Type Department Care Team Description 08/01/2023 Telephone [facility] [address] [phone] Mary Lenz MD [address] [address] Social History Tobacco Use Types Packs/Day Years [...] encounter Miscellaneous Notes * Telephone Encounter - Shelbie Najear - 08/18/2023 9:20 AM EST Called patient to schedule surgery and he would like to wait and call back when ready. documented in this encounter Plan of Treatment Not on file documented as of this encounter Visit Diagnoses Diagnosis Trigger index finger of left hand- Primary Trigger finger (acquired) Trigger little finger of left hand Trigger finger (acquired) documented in this encounter Care Teams Rug Sample Beveler Relationship Specialty Start Date End Date Casimiro Cat MD [address] [place] [address] PCP - General Internal Medicine 09/13/11 03/15/24 Stephanie Espinosa PA [address] [place] [address] PCP - General Medical Physician Lace And Textiles Restorer 03/16/24 documented as of this encounter
--- OUTSIDE RECORDS SUMMARY | 2024-09-29 10:48 | XMS_ITS | Encounter Summary ---
Author Organization [facility] Address [address] [place] [address] Care Team Providers Care Assistant Professor Of Psychology Name Role Phone Casimiro Cat MD Primary Care Provider [phone] Stephanie Espinosa Primary Care Provider Unav ailable Encounter Details Date Type Department Care Team Description 10/14/2023 Telephone [facility] [address] [phone] Mary Lenz MD [address] [address] Social History Tobacco Use Types Packs/Day Years [...] Miscellaneous Notes * Telephone Encounter - Shelbie Najera - 10/14/2023 2:25 PM EDT Called Angel Clay at [phone] to schedule surgery with Dr. Mary Lenz, left message on [employer]. Asked to call back at earliest convenience. Next available date/looking at for surgery: 12/31/23 documented in this encounter Plan of Treatment Not on file documented as of this encounter Visit Diagnoses Not on filedocumented in this encounter Care Teams Assistant Professor Of Psychology Relationship Specialty Start Date End Date Casimiro Cat MD [address] [place] [address] PCP - General Internal Medicine 09/13/11 03/15/24 Stephanie Espinosa PA [address] [place] [address] PCP - General Medical Physician Edge Sander 03/16/24 documented as of this encounter
--- OUTSIDE RECORDS SUMMARY | 2024-09-29 10:48 | XMS_ITS | Encounter Summary ---
Author Organization [facility] Address [address] [place] [address] Care Team Providers Care Supervisor Lead Refinery Name Role Phone Casimiro Cat MD Primary Care Provider [phone] Stephanie Espinosa Primary Care Provider Unav ailable Encounter Details Date Type Department Care Team Description 06/01/2018 Pt. Non Urgent Medical Question Adult Medicine - [address] [address] Epifanio Carl PA Social History Tobacco Use [...] Progress Notes * Pily Keller M.A. - 06/01/2018 1:05 PM ESTFrom: Angel Clay To: Epifanio Carl PA-C Sent: 06/01/2018 12:06 PM EST Subject: Sinus Issues Hi Niranjan, Thought of something with the sinus issue. For the last 8 to 10 months I have been taking 1 HCI 25 mg Diphenhydramine Antihistamine as a sleep aid .. Any Thoughts ?? Please let me know.. Orestes Clay documented in this encounter Plan of Treatment Not on file documented as of this encounter Visit Diagnoses Not on filedocumented in this encounter Care Teams Supervisor Lead Refinery Relationship Specialty Start Date End Date Casimiro Cat MD [address] [place] [address] PCP - General Internal Medicine 09/13/11 03/15/24 Stephanie Espinosa PA [address] [place] [address] PCP - General Medical Physician Counter Sales Person 03/16/24 documented as of this encounter
--- OUTSIDE RECORDS SUMMARY | 2024-09-29 10:48 | XMS_ITS | Encounter Summary ---
Author Organization [facility] Address [address] [place] [address] Care Team Providers Care Nuclear Powerplant Supervisor Name Role Phone Casimiro Cat MD Primary Care Provider [phone] Stephanie Espinosa Primary Care Provider Unav ailable Encounter Details Date Type Department Care Team Description 03/25/2022 Refill Rheumatology - [address] [address] Md Erasmo Social History Tobacco Use Types Packs/Day Years [...] as of this encounter Visit Diagnoses Diagnosis Idiopathic chronic gout of foot without tophus, unspecified laterality documented in this encounter Care Teams Nuclear Powerplant Supervisor Relationship Specialty Start Date End Date Casimiro Cat MD [address] [place] [address] PCP - General Internal Medicine 09/13/11 03/15/24 Stephanie Espinosa PA [address] [place], [place] PCP - General Medical Physician Market Risk Analyst 03/16/24 documented as of this encounter
--- OUTSIDE RECORDS SUMMARY | 2024-09-29 10:48 | XMS_ITS | Encounter Summary ---
Author Organization [facility] Address [address] [place] [address] Care Team Providers Care Sales Center Manager Name Role Phone Stephanie Espinosa PA-C Primary Care Provi stephen Estuardo Geronimo MD Unavailable [phone] Encounter Details Date Type Department Care Team (Late st Contact Info) Description 02/26/2024 Scanned Document [address] [phone] Stephanie Espinosa PA-C [address] [place] [address] Social History Tobacco Use Types Packs/Day Years Used Date Smoking Tobacco: Former Cigarettes Q uit: 1984 Smokeless Tobacco: Never Alcohol Use Standard Drinks/Week Comments Yes 14 (1 standard drink = 0.6 oz pu re alcohol) PHQ-2 Answer Date Recorded PHQ-2 Total Score 0 01/28/2024 Sex and Gender Information Value Date Recorded Sex Assigned at Male 01/26/2024 8:51 AM EDT Legal Sex Male 3:31 PM EDT Gender Identity Male 01/26/2024 8:51 AM EDT Sexual Orientation Not on file documented as of this encounter Plan of Treatment Not on file documented as of this encounter Visit Diagnoses Not on filedocumented in this encounter Care Teams Sales Center Manager Relationship Specialty Start Date End Date Stephanie Espinosa PA-C [address] [place] [address] PCP - General Internal Medicine 01/28/24 09/20/24 Estuardo Geronimo MD [address] [place] [address] Gastroenterology 05/26/24 documented as of this encounter
--- OUTSIDE RECORDS SUMMARY | 2024-09-29 10:48 | XMS_ITS | Encounter Summary ---
Author Organization [employer] [facility] Address [address] [place] [address] Care Team Providers Care Relief Pharmacist Name Role Phone Casimiro Cat MD Primary Care Provider +1- [phone] Stephanie Espinosa Primary Care Provider Unav ailable Encounter Details Date Type Department Care Team Description 09/03/2023 Private Branch Exchange Installer Report Medical Records [address] [place] [address] Belkis Dumont NP Social History Tobacco Use Types Packs/Day Years [...] on filedocumented in this encounter Care Teams Relief Pharmacist Relationship Specialty Start Date End Date Casimiro Cat MD [address] [place] [address] PCP - General Internal Medicine 09/13/11 03/15/24 Stephanie Espinosa PA [address] [place] [address] PCP - General Medical Physician Brownfield Redevelopment Specialist 03/16/24 documented as of this encounter
--- OUTSIDE RECORDS SUMMARY | 2024-09-29 10:48 | XMS_ITS | Encounter Summary ---
Author Organization [facility] Address [address] [place] [address] Care Team Providers Care Aircraft Communicator Name Role Phone Casimiro Cat MD Primary Care Provider +1 [phone] Stephanie Espinosa Primary Care Provider Unav ailable Reason for Visit * Reason Onset Date Comments hospital follow up 12/21/2018 Encounter Details Date Type Department Care Team Description 12/21/2018 Telephone Adult Medicine - [place] [address] [place] [address] Casimiro Cat MD [address] [place] [address] hospital follow up Social History Tobacco Use Types Packs/Day Years [...] encounter Miscellaneous Notes * Telephone Encounter - Yvette Olvera M.A. - 12/21/2018 11:35 AM EDT Notes given to [facility]. * Telephone Encounter - Yahaira Medeiros M.A. - 12/21/2018 10:04 AM EDT Gave to Kaelyn to obtain notes * Telephone Encounter - Angelina Obregon R.N. - 12/21/2018 9:48 AM EDT Called patient for a hosp fu appt. Appointment 12/25 with @1:30pm. Please obtain hospital notes from [facility]. * Telephone Encounter - Lupis Bryant - 12/21/2018 9:07 AM EDT Hospital follow up appointment needed Hospital patient was treated at: [facility] Was this only an ER visit or was the patient admitted to the hospital? Admitted to hospital Date of visit if ER visit only: N/A If patient was admitted what was the date of discharge? 12/19/18 Reason/diagnosis for visit or stay: colon cancer When was the patient told to follow up? With in 7 days Was visit or stay related to an injury? NO If yes, what was the date of injury (DOI)? N/A If yes, was the injury due to N/A documented in this encounter Plan of Treatment Not on file documented as of this encounter Visit Diagnoses Not on filedocumented in this encounter Care Teams Aircraft Communicator Relationship Specialty Start Date End Date Casimiro Cat MD [address] [place] [address] PCP - General Internal Medicine 09/13/11 03/15/24 Stephanie Espinosa PA [address] [place] [address] PCP - General Medical Physician Small Offset Printer 03/16/24 documented as of this encounter
[2024-09-29 13:16] LABS: MANUAL DIFF FLAG NO
[2024-09-29 13:34] LABS: Basophils Percent Auto 0.3 % (0-2); Eosinophils Percent Auto 0.2 % (0-4); Hematocrit 47.5 % (42.0-52.0); Hemoglobin 15.9 g/dl (14.0-18.0); Imm Gran Abs Auto 0.05 X10*3/uL (0.00-0.03); Imm Gran Pct Auto 0.5 % (0.0-0.4); Lymphocytes Absolute Auto 2.5 X10*3/uL (1.2-4.9); Mean Corpuscular HGB Conc 33.5 g/dl (31.0-36.0); Mean Corpuscular Hemoglobin 30.6 pg (27.0-33.0); Mean Corpuscular Volume 91.3 fL (80.0-98.0); Monocytes Absolute Auto 0.9 X10*3/uL (0.1-1.2); Monocytes Percent Auto 9.2 % (2-11); Neutrophils Absolute Auto 6.2 x10*3/uL (2.0-8.3); Neutrophils Percent Auto 63.8 % (45-73); Platelet Count 174 X10*3/uL (160-400); Red Cell Distribution Width 13.1 % (11.0-16.0); White Blood Count 9.7 X10*3/uL (4.8-10.8)
[2024-09-29 14:19] LABS: Erythrocyte Sedimentation Rate 2 MM/HR (0-15)
[2024-09-29 14:40] LABS: Alanine Aminotransferase 68 U/L (0-40); Albumin Level 4.4 g/dL (3.5-5.0); Alkaline Phosphatase 61 U/L (39-117); Anion Gap 11 (12-20); Aspartate Amino Transferase 42 U/L (5-37); Bilirubin Total 0.8 mg/dL (0.0-1.0); Blood Urea Nitrogen 17 mg/dL (9-16); C Reactive Protein < 0.10 mg/dL (< or = 0.50); Calcium 10.4 mg/dL (8.4-10.2); Carbon Dioxide 27 mmol/L (22-29); Chloride 107 mmol/L (96-108); Estimated Glomerular Filt Rate 56; Glucose Random 85 mg/dL (60-115); Sodium 141 mmol/L (135-145); Total Protein 6.7 g/dL (6.5-8.0); Uric Acid 3.1 mg/dL (3.4-7.0)
== END 2024-09-29 09:38 | disposition home or self-care (01) ==
LOC: HO.10HDL 09:37
PROVIDERS: Visit Provider Student in an Organized Health Care Education/Training Program
DX: M1A.09X0 Idiopathic chronic gout, multiple sites, without tophus (tophi) (principal); M35.3 Polymyalgia rheumatica
CPT/HCPCS: 36415; 80053; 84550; 85025; 85652; 86140

== ENCOUNTER 2024-10-06 08:11 | Outpatient (AMB) | payer MEDICARE, SELFPAY ==
--- NOTE | 2024-10-06 08:18 | MHC.OFFVIS ---
Vital Signs 10/06/24 08:24 Height 5 ft 10 in Weight 167 lb 5.294 oz BMI 24.0 BP 124/70 Blood Pressure Location Lt brachial Position Sitting Pulse 74 Pulse Source Pulse Oximeter Pulse Oximetry (%) 97 Oxygen Delivery Method Room Air Intake Visit Reasons: PMR/gout Intake Note: Patient presents for PMR and Gout follow up. Allergies No Known Allergies Allergy (Verified 10/06/24 08:22) Medication List - Last Reconciled 10/06/24 by Ailyn Bryant MD allopurinol 300 mg PO DAILY allopurinol 100 mg PO DAILY amlodipine 2.5 mg PO DAILY apixaban (Eliquis) 2.5 mg PO BID benazepril 40 mg PO DAILY celecoxib 200 mg PO DAILY prednisone 1 mg PO BID rosuvastatin 40 mg PO DAILY HPI Comments Details: Patient is a 69-year-old male with hypertension, hyperlipidemia, history of PE on Eliquis, history of melanoma, polyarticular osteoarthritis, PMR and non crystal proven gout here today for follow up Interval History: Patient last seen 06/23/[address] Novoa. At that time he was following up for PMR and gout. He was on allopurinol 400 mg a day and prednisone 1 mg in the morning 2.5 mg at night. Reported continued intermittent pain and swelling to his hands as especially at night with morning stiffness lasting about 30 minutes. Exam was consistent with osteo arthritis of bilateral hands and he was advised to decrease the prednisone to 1 mg twice a day Today, Doing well with allopurinol. No gout flare for 5 years Decreased prednsione to 1mg daily for the past month Has noticed worsening pain in the hands: Pain is worse in the AM, swelling at night. Has known trigger finger Also with known cervical degenerative disease with radiculopathy. Currently in PT. History of C- spine surgery. Rheumatologic History: PMR Diagnosed 2014 Prednisone started 2014 and then tapered off Restarted 11/2022 Gout non crystal proven Current Rheumatology Medication(s): Allopurinol 400 mg daily Prednisone 1 mg twice a day [facility] Medical History Generalized osteoarthritis of multiple sites PMR (polymyalgia rheumatica) History of rectal cancer History of pulmonary embolus (PE) Surgical History History of melanoma excision Family History Mother Breast cancer Father Stroke Social History Alcohol intake: current Alcohol intake frequency: 0-2 drinks per day Alcohol type: beer Patient Tobacco Use Status: Former Tobacco user Review of Systems Const Details: Review of Systems Constitutional: Denies fever, chills, weight loss ENT: Denies vision changes, eye pain or eye redness, dental caries, dry mouth GI: Denies nausea, vomiting, diarrhea, abdominal pain, change in BM Pulm: Denies SOB, ERIC, hemoptysis, wheezing Cards: Denies chest pain, palpitations Skin: Denies Raynaud's, rash, nail changes, photosensitivity, TATTOOER: Denies headaches, weakness, paresthesias, recurrent falls MSK: as per HPI All other systems reviewed and are unremarkable except noted above Physical Exam Vital Signs: Last Vital Signs Pulse 74 10/06/24 08:24 BP 124/70 10/06/24 08:24 Pulse Ox 97 10/06/24 08:24 Oxygen Delivery Method Room Air 10/06/24 08:24 BMI result Body Mass Index 24.0 Vital signs reviewed Physical Examination CONSTITUITIONAL Patient alert and cooperative. Well appearing and in no apparent painful distress HEENT Conjunctiva and sclera clear. ?Pupils equal round and reactive to light. ?No lymphadenopathy. ? CHEST/RESPIRATORY SYSTEM Normal respiratory effort and able to speak in complete sentences. ?Clear to auscultation bilaterally. ?No crackles, rales, rhonchi, wheezes heard. CARDIAC SYSTEM Regular rate and rhythm. ?S1 and S2 heard no murmurs. ?Radial pulses intact bilaterally MSK Hands: ?Good personal lines sales executive strength bilaterally. No deformities noted. ?No synovitis noted to the MCPs, PIPs or DIPs. ?No tenderness to palpation of these joints. Wrists: ?Full range of motion at the wrists without pain. ?No tenderness to palpation or synovitis noted to the wrists. Elbows: Full range of motion without pain. No tenderness, weakness, swelling, increased warmth or erythema. Shoulders: Full range of motion without pain. No tenderness, weakness, swelling, increased warmth or erythema. Hips: Full range of motion without pain. Hip bursa: No tenderness to palpation Knees: ?Full range of motion. ?No tenderness, swelling, increased warmth or erythema.?No effusion or crepitations Ankles: Full range of motion. ?No tenderness, swelling, increased warmth or erythema.? Feet: ?Negative squeeze test. ?No tenderness to palpation or swelling of the MTPs. Tender points:?No tenderness to palpation of the bilateral trapezius, supraspinatus, greater trochanters, anterior costochondral junctions, bilateral gluteal areas, bilateral suboccipital muscle insertions SKIN Skin intact without rashes. Results Reviewed Results Reviewed: Laboratory Tests 09/29/24 09:44 WBC 9.7 RBC 5.20 Hgb 15.9 Hct 47.5 Plt Count 174 ESR 2 Sodium 141 Potassium 4.0 Chloride 107 Carbon Dioxide 27 BUN 17 H Creatinine 1.28 Uric Acid 3.1 L Calcium 10.4 H AST 42 H ALT 68 H Alkaline Phosphatase 61 C-Reactive Protein < 0.10 Assessment & Plan Assessment & Plan (1) PMR (polymyalgia rheumatica): Comment: On prednisone in 2014 - tapered off, restarted 11/2022 Code(s): M35.3 - Polymyalgia rheumatica Category: Medical Plan: #PMR Patient is a 69-year-old male with PMR currently in remission. Inflammatory markers are normal and no stiffness involving his shoulders or hips. He continues to complain of achiness in his hands. Normal inflammatory markers so I am unsure/unclear if this is an inflammatory arthritis which can be related to PMR. Patient was a consistent alcohol drinker and so methotrexate would not be a good option for him. We will try Plaquenil to see if this will help his hand pain. Plan - Taper prednisone to off - Start plaquenil 200mg bid - RTC 4 months - Labs before visit: CBC, CMP, ESR, CRP, hepatitis panel, T spot, RF, CCP (2) Generalized osteoarthritis of multiple sites: Code(s): M15.9 - Polyosteoarthritis, unspecified Category: Medical Plan: #Polyarticular OA Patient with polyarticular osteoarthritis. Did not respond well to topical diclofenac in the past. Did not tolerate gabapentin. Can consider pregabalin given that he also has concomitant cervical radiculopathy (3) Gout: Comment: allopurinol started 2014 Code(s): M10.9 - Gout, unspecified Category: Medical Qualifiers: Gout site: multiple sites Gout etiology: idiopathic Chronicity: chronic Presence of tophus: without tophus Qualified Code(s): M1A.09X0 - Idiopathic chronic gout, multiple sites, without tophus (tophi) (4) Encounter for monitoring allopurinol therapy: Code(s): Z51.81 - Encounter for therapeutic drug level monitoring; Z79.899 - Other [place] [facility] (current) drug therapy Plan: #Long-term Current Use of Allopurinol Risks and benefits of allopurinol discussed with patient Benefits include decreased gout flares, remission of gout and reduction of tophi Risks include allopurinol hypersensitivity syndrome which is a severe cutaneous adverse reaction associated with allopurinol use particularly in patients who are HLA B*5801 positive, increased transaminases, GI upset including diarrhea, nausea and vomiting, and other dermatologic manifestations. (5) bracer (current) use of systemic steroids: Code(s): Z79.52 - care home (current) use of systemic steroids Plan: #Long-term Use of Steroids Discussed with patient the risks and benefits of steroid for managing the rheumatic condition Benefits include: - Reduced pain, improved mobility, increased participation in activities, and decreased progression of disease Risks include: - GI upset, potential ultrasound worsening or formation (especially in patients > 65 years old), elevated blood pressure/worsening hypertension, elevated blood sugar/worsening diabetes control, worsening of bone density, elevated lipids/worsening triglycerides, cataract formation, weight gain Plan - Check DEXA and vit D Plan I spent 30 minutes reviewing the record and labs, taking a history, examining the patient, discussing the treatment plan, ordering diagnostic work up and documenting in the medical record Orders: Orders Comprehensive Met. Panel 4 Months M35.3 - Polymyalgia rheumatica C Reactive Protein 4 Months M35.3 - Polymyalgia rheumatica Erythrocyte Sedimentation Rate 4 Months M35.3 - Polymyalgia rheumatica Vitamin D 25-OH (D2 and D3) 4 Months E55.9 - Vitamin D deficiency, unspecified Cyclic Citrullinated Peptide 4 Months M35.3 - Polymyalgia rheumatica XR hand RT min 3V Today M15.9 - Polyosteoarthritis, unspecified XR wrist RT min 3V Today M15.9 - Polyosteoarthritis, unspecified XR DEXA axial skeleton Today M81.0 - Age-related osteoporosis without current pathological fracture Complete Blood Count Auto Diff 4 Months M35.3 - Polymyalgia rheumatica Rheumatoid Factor 4 Months M35.3 - Polymyalgia rheumatica XR hand LT min 3V Today M15.9 - Polyosteoarthritis, unspecified XR wrist LT min 3V Today M15.9 - Polyosteoarthritis, unspecified Medications: New allopurinol 300 mg PO DAILY 90 tabs 1RF M1A.09X0 - Idiopathic chronic gout, multiple sites, without tophus (tophi) hydroxychloroquine (Plaquenil) 200 mg PO BID 180 tabs 1RF M19.90 - Unspecified osteoarthritis, unspecified site Changed From prednisone 1 mg PO BID 180 tabs 1RF M35.3 - Polymyalgia rheumatica To prednisone 1 mg PO DAILY 90 tabs 1RF M35.3 - Polymyalgia rheumatica Refilled celecoxib 200 mg PO DAILY 90 caps 1RF M15.9 - Polyosteoarthritis, unspecified allopurinol 100 mg PO DAILY 90 tabs 1RF M1A.09X0 - Idiopathic chronic gout, multiple sites, without tophus (tophi) Coding Level of Care Code Est Pt Level 4 (97616) Complex EM visit Add On G2211 Diagnoses PMR (polymyalgia rheumatica) M35.3 Generalized osteoarthritis of multiple sites M15.9 Idiopathic chronic gout of multiple sites without tophus M1A.09X0 Gout site: multiple sites Gout etiology: idiopathic Chronicity: chronic Presence of tophus: without tophus Encounter for monitoring allopurinol therapy Z51.81; Z79.899 bracer (current) use of systemic steroids Z79.52
--- OUTSIDE RECORDS SUMMARY | 2024-10-06 08:21 | XMS_ITS | Encounter Summary ---
Author Organization [facility] Address [address] [place] [address] Care Team Providers Care Aboriginal Community Council Member Name Role Phone Casimiro Cat MD Primary Care Provider +1- [phone] Stephanie Espinosa Primary Care Provider Unav ailable Reason for Referral * Specialist (Routine) - Authorized/Booked Specialty Diagnoses / Procedures Referred By Dorie ricardo Referred To Contact Rheumatology Procedures REFERRAL TO RHEUMATOLOGY Casimiro Cat MD [address] [place] [address] Rheum/[place] [address] [place] [address] Referral ID Status Reason Start Date Expiration Date V isits Requested Visits Authorized [id number] Authorized/B ooked 05/31/2014 05/31/2015 12 12 Encounter Details Date Type Department Care Team Description 05/31/2014 Pt. Non Urgent Medical Question Adult Medicine - [place] [address] [place] [address] Casimiro Cat MD [address] [place] [address] Social History Tobacco Use Types Packs/Day Years [...] as of this encounter Progress Notes * Serenity E Whelihan M.A. - 05/31/2014 10:10 AM ESTFrom: Angel Clay To: Casimiro Cat MD Sent: 05/31/2014 9:32 AM EST Subject: Foot (Gout) My foot is still hurting and I would like to see the Foot Doctor in the [place] Office. Please let me know what I need to do to schedule an appointment with him. The sooner the better. Orestes documented in this encounter Plan of Treatment Not on file documented as of this encounter Visit Diagnoses Not on filedocumented in this encounter Care Teams Aboriginal Community Council Member Relationship Specialty Start Date End Date Casimiro Cat MD [address] [place] [address] PCP - General Internal Medicine 09/13/11 03/15/24 Stephanie Espinosa PA [address] [place] [address] PCP - General Medical Physician Founder 03/16/24 documented as of this encounter
--- OUTSIDE RECORDS SUMMARY | 2024-10-06 08:21 | XMS_ITS | Encounter Summary ---
Author Organization [facility] Address [address] [place] [address] Care Team Providers Care Screw Machine Tool Setter Name Role Phone Casimiro Cat MD Primary Care Provider +1- [phone] Stephanie Espinosa Primary Care Provider Unav ailable Reason for Visit * Reason Onset Date Comments Anticoagulation 05/06/2014 TEST RESULTS 05/06/2014 Encounter Details Date Type Department Care Team Description 05/06/2014 Telephone Adult Medicine - [place] [address] [place] [address] Casimiro Cat MD [address] [place] [address] Anticoagulation; TEST RESULTS Social History Tobacco Use Types Packs/Day Years [...] encounter Miscellaneous Notes * Telephone Encounter - Rebecca Gamble L.P.N. - 05/06/2014 11:54 AM EST Noted and addressed * Telephone Encounter - Casimiro Cat MD - 05/06/2014 9:15 AM EST Spoke with Rebecca. Continue to hold off on restarting Lovenox. Boost in Coumadin. I would discourageuse of indomethacin while taking Coumadin. Patient has appointment Friday where we can discuss other options. Unable to tolerate colchicine. * Telephone Encounter - Rebecca Gamble L.P.N. - 05/06/2014 8:38 AM EST FYI Component Value Date INR 1.5 05/06/2014 Pt dose through the weekend has f/u with you on Wednesday 05/09, will also be seen in a/c clinic, alsostarted indomethacin tid yesterday for gout flare up, which can interact with coumadin, but inr remains low, so dose needs to be boosted. Rebecca documented in this encounter Plan of Treatment Not on file documented as of this encounter Visit Diagnoses Not on filedocumented in this encounter Care Teams Screw Machine Tool Setter Relationship Specialty Start Date End Date Casimiro Cat MD [address] [place] [address] PCP - General Internal Medicine 09/13/11 03/15/24 Stephanie Espinosa PA [address] [place] [address] PCP - General Medical Physician Electric System Operator 03/16/24 documented as of this encounter
--- OUTSIDE RECORDS SUMMARY | 2024-10-06 08:22 | XMS_ITS | Encounter Summary ---
Author Organization [facility] Address [address] [place] [address] Care Team Providers Care Assembler Metal Furniture Name Role Phone Casimiro Cat MD Primary Care Provider +1- [phone] Stephanie Espinosa Primary Care Provider Unav ailable Encounter Details Date Type Department Care Team Description 07/05/2019 Pt. Non Urgent Medical Question General Surgery [facility] [address] [facility] [address] [place] [address] Pelon Nick MD [address] [facility] [address] [place] [address] Social History Tobacco Use Types Packs/Day [...] on filedocumented in this encounter Care Teams Assembler Metal Furniture Relationship Specialty Start Date End Date Casimiro Cat MD [address] [place] [address] PCP - General Internal Medicine 09/13/11 03/15/24 Stephanie Espinosa PA [address] [place] [address] PCP - General Medical Physician Car Supplier 03/16/24 documented as of this encounter
--- OUTSIDE RECORDS SUMMARY | 2024-10-06 08:22 | XMS_ITS | Encounter Summary ---
Author Organization [facility] Address [address] [place] [address] Care Team Providers Care Yarn Dry Room Worker Name Role Phone Casimiro Cat MD Primary Care Provider +1- [phone] Stephanie Espinosa Primary Care Provider Unav ailable Encounter Details Date Type Department Care Team Description 04/03/2022 Refill Adult Medicine [address] [address] Md Erasmo Social History Tobacco Use Types [...] encounter Miscellaneous Notes * Telephone Encounter - Phillip Nicko - 04/03/2022 7:27 AM EDTFrom: Angel Clay To: Office of Stacie Carl Sent: 04/02/2022 11:26 AM EDT Subject: Medication Renewal Request Refills have been requested for the following medications: allopurinol (ZYLOPRIM) 100 MG tablet [STEPHEN Butts] Preferred pharmacy: [facility]) - [address] Medication renewals requested in this message routed separately: diclofenac (VOLTAREN) 75 MG EC tablet [Alberto Gustafson MD] documented in this encounter Plan of Treatment Not on file documented as of this encounter Visit Diagnoses Diagnosis Idiopathic chronic gout of foot without tophus, unspecified laterality documented in this encounter Care Teams Yarn Dry Room Worker Relationship Specialty Start Date End Date Casimiro Cat MD [address] [place] [address] PCP - General Internal Medicine 09/13/11 03/15/24 Stephanie Espinosa PA [address] [place] [address] PCP - General Medical Physician Admissions Rn 03/16/24 documented as of this encounter
--- OUTSIDE RECORDS SUMMARY | 2024-10-06 08:22 | XMS_ITS | Encounter Summary ---
Author Organization [facility] Address [address] [place] [address] Care Team Providers Care Business Development Engineer Name Role Phone Casimiro Cat MD Primary Care Provider +1- [phone] Stephanie Espinosa Primary Care Provider Unav ailable Reason for Visit * Reason Onset Date Comments APPOINTMENT 01/13/2019 Encounter Details Date Type Department Care Team Description 01/13/2019 Telephone Adult Medicine - [place] [address] [place] [address] Casimiro Cat MD [address] [place], [place] [id number] APPOINTMENT Social History Tobacco Use Types Packs/Day Years [...] encounter Miscellaneous Notes * Telephone Encounter - Chelsea Baer - 01/13/2019 12:16 PM EDT Left vm to return call to schedule an appointment within 1 week with pcp care team for hypertensionper diane umana in surgery at [address] [place] [address]. documented in this encounter Plan of Treatment Not on file documented as of this encounter Visit Diagnoses Not on filedocumented in this encounter Care Teams Business Development Engineer Relationship Specialty Start Date End Date Casimiro Cat MD [address] [place] [address] PCP - General Internal Medicine 09/13/11 03/15/24 Stephanie Espinosa PA [address] [place] [address] PCP - General Medical Physician Blindstitch Lapel Padder 03/16/24 documented as of this encounter
--- OUTSIDE RECORDS SUMMARY | 2024-10-06 08:22 | XMS_ITS | Encounter Summary ---
Author Organization [facility] Address [address] [place] [address] Care Team Providers Care Bookkeeping Clerk Name Role Phone Casimiro Cat MD Primary Care Provider +1- [phone] Stephanie Espinosa Primary Care Provider Unav ailable Encounter Details Date Type Department Care Team Description 08/04/2015 Nutrition Services Manager Report Medical Records [address] [place] [address] Rosa Mejia MD [address] [place] [address] Social History Tobacco Use Types Packs/Day Years [...] on filedocumented in this encounter Care Teams Bookkeeping Clerk Relationship Specialty Start Date End Date Casimiro Cat MD [address] [place] [address] PCP - General Internal Medicine 09/13/11 03/15/24 Stephanie Espinosa PA [address] [place] [address] PCP - General Medical Physician Deburring Machine Operator 03/16/24 documented as of this encounter
--- OUTSIDE RECORDS SUMMARY | 2024-10-06 08:22 | XMS_ITS | Encounter Summary ---
Author Organization [facility] Address [address] [place] [address] Care Team Providers Care Senior Marketing Data Analyst Name Role Phone Casimiro Cat MD Primary Care Provider +1- [phone] Stephanie Espinosa Primary Care Provider Unav ailable Encounter Details Date Type Department Care Team Description 10/22/2017 Health Information Administrator Report Medical Records [address] [place] [address] Luiz Valentino MD Social History Tobacco Use [...] on filedocumented in this encounter Care Teams Senior Marketing Data Analyst Relationship Specialty Start Date End Date Casimiro Cat MD [address] [place] [address] PCP - General Internal Medicine 09/13/11 03/15/24 Stephanie Espinosa PA [address] [place] [address] PCP - General Medical Physician Associate Project Manager 03/16/24 documented as of this encounter
--- OUTSIDE RECORDS SUMMARY | 2024-10-06 08:22 | XMS_ITS | Encounter Summary ---
Author Organization [facility] Address [address] [place] [address] Care Team Providers Care Custom Frame Assembler Name Role Phone Casimiro Cat MD Primary Care Provider +1- [phone] Stephanie Espinosa Primary Care Provider Unav ailable Encounter Details Date Type Department Care Team Description 05/24/2016 Pt. Non Urgent Medical Question Adult Medicine [address] [address] Epifanio Carl PA Social History Tobacco Use [...] on filedocumented in this encounter Care Teams Custom Frame Assembler Relationship Specialty Start Date End Date Casimiro Cat MD [address] [place] [address] PCP - General Internal Medicine 09/13/11 03/15/24 Stephanie Espinosa PA [address] [place] [address] PCP - General Medical Physician Control Room Technician 03/16/24 documented as of this encounter
--- OUTSIDE RECORDS SUMMARY | 2024-10-06 08:22 | XMS_ITS | Encounter Summary ---
Author Organization [facility] Address [address] [place] [address] Care Team Providers Care Dental Technician Metal Name Role Phone Casimior Cat MD Primary Care Provider +1- [phone] Stephanie Espinosa Primary Care Provider Unav ailable Encounter Details Date Type Department Care Team Description 06/03/2014 Pt. Non Urgent Medical Question Adult Medicine - [place] [address] [place] [address] Casimiro Cat MD [address] [place] [address] Social History Tobacco Use Types Packs/Day Years [...] Progress Notes * Jacinta Roberson L.P.N. - 06/03/2014 1:35 PM ESTFrom: Angel Clay To: Casimiro Cat MD Sent: 06/03/2014 1:21 PM EST Subject: Shoulder rehab referral Need a new referral effective 06/16/14 for [employer] [facility] @ [address] [place] [address]. Tel: [phone] Fax: [phone] NPI # [id number] Please confirm. Thank you, Orestes Clay documented in this encounter Plan of Treatment Not on file documented as of this encounter Visit Diagnoses Not on filedocumented in this encounter Care Teams Dental Technician Metal Relationship Specialty Start Date End Date Casimiro Cat MD [address] [place] [address] PCP - General Internal Medicine 09/13/11 03/15/24 Stephanie Espinosa PA [address] [place] [address] PCP - General Medical Physician Teacher Of The Sight Impaired 03/16/24 documented as of this encounter
--- OUTSIDE RECORDS SUMMARY | 2024-10-06 08:22 | XMS_ITS | Encounter Summary ---
Author Organization [facility] Address [address] [place] [address] Care Team Providers Care Molding Associate Name Role Phone Casimiro Cat MD Primary Care Provider +1- [phone] Stephanie Espinosa Primary Care Provider Unav ailable Reason for Visit * Reason Onset Date Comments Faxed Refill 02/26/2019 Encounter Details Date Type Department Care Team Description 02/26/2019 Refill Adult Medicine - [place] [address] [place] [address] Casimiro Cat MD [address] [place] [address] Faxed Refill Social History Tobacco Use Types [...] N/A Patients current insurance carrier is: Payor: [facility] / Plan: [facility] MEDICARE COMPLETE $15/$45 [facility] [id number] / Product Type: PPO [id number]-[id number] documented in this encounter Plan of Treatment Not on file documented as of this encounter Visit Diagnoses Not on filedocumented in this encounter Care Teams Molding Associate Relationship Specialty Start Date End Date Casimiro Cat MD [address] [place] [address] PCP - General Internal Medicine 09/13/11 03/15/24 Stephanie Espinosa PA [address] [place] [address] PCP - General Medical Physician Director Of Employer Services 03/16/24 documented as of this encounter
--- OUTSIDE RECORDS SUMMARY | 2024-10-06 08:22 | XMS_ITS | Encounter Summary ---
Author Organization [facility] Address [address] [place] [address] Care Team Providers Care Web Mobile Designer Name Role Phone Casimiro Cat MD Primary Care Provider +1 [phone] Stephanie Espinosa Primary Care Provider Unav ailable Reason for Visit * Reason Comments E-prescribe Rx Request Encounter Details Date Type Department Care Team Description 07/27/2019 Refill Adult Medicine - [place] [address] [place] [address] Casimiro Cat MD [address] [place], [place] [phone] E-prescribe Rx Request Social History Tobacco Use [...] an upcoming appointment? No-[facility]able [facility] to [facility]ill [...] N/A Patients current insurance carrier is: Payor: [facility] / Plan: [employer] MEDICARE COMPLETE $15/$45 [facility] [id number] / Product Type: PPO [id number] * Telephone Encounter - Herminia Harrell M.A. [...] N/A Patients current insurance carrier is: Payor: [employer] / Plan: [facility] MEDICARE COMPLETE $15/$45 [facility] [id number] / Product Type: PPO [id number] documented in this encounter Plan of Treatment Not on file documented as of this encounter Visit Diagnoses Not on filedocumented in this encounter Care Teams Web Mobile Designer Relationship Specialty Start Date End Date Casimiro Cat MD [address] [place] [address] PCP - General Internal Medicine 09/13/11 03/15/24 Stephanie Espinosa PA [address] [place] [address] PCP - General Medical Physician Offbearer 03/16/24 documented as of this encounter
--- OUTSIDE RECORDS SUMMARY | 2024-10-06 08:22 | XMS_ITS | Encounter Summary ---
Author Organization [facility] Address [address] [place] [address] Care Team Providers Care Head Kiln Operator Name Role Phone Casimiro Cat MD Primary Care Provider +1- [phone] Stephanie Espinosa Primary Care Provider Unav ailable Encounter Details Date Type Department Care Team Description 10/03/2016 SCAN Medical Records [address] [place] [address] Abstract, Provider Social History Tobacco Use Types [...] on filedocumented in this encounter Care Teams Head Kiln Operator Relationship Specialty Start Date End Date Casimiro Cat MD [address] [place], [place] [id number] PCP - General Internal Medicine 09/13/11 03/15/24 Stephanie Espinosa PA [address] [place] [address] PCP - General Medical Physician Family Welfare Social Work Professor 03/16/24 documented as of this encounter
--- OUTSIDE RECORDS SUMMARY | 2024-10-06 08:22 | XMS_ITS | Encounter Summary ---
Author Organization [facility] Address [address] [place] [address] Care Team Providers Care Deputy Clerk Of Court Name Role Phone Casimiro Cat MD Primary Care Provider +1- [phone] Stephanie Espinosa Primary Care Provider Unav ailable Encounter Details Date Type Department Care Team Description 12/03/2017 Pt. Non Urgent Medical Question Adult Medicine - [address] [address] Epifanio Carl PA Social History Tobacco Use [...] be in order.. Please call me at [phone] you can .. Thanks Orestes Clay documented in this encounter Plan of Treatment Not on file documented as of this encounter Visit Diagnoses Not on filedocumented in this encounter Care Teams Deputy Clerk Of Court Relationship Specialty Start Date End Date Casimiro Cat MD [address] [place] [address] PCP - General Internal Medicine 09/13/11 03/15/24 Stephanie Espinosa PA [address] [place] [address] PCP - General Medical Physician Tile Setter Supervisor 03/16/24 documented as of this encounter
--- OUTSIDE RECORDS SUMMARY | 2024-10-06 08:23 | XMS_ITS | Encounter Summary ---
Author Organization [facility] Address [address] [place] [address] Care Team Providers Care Underwear Finisher Name Role Phone Casimiro Cat MD Primary Care Provider +1- [phone] Stephanie Espinosa Primary Care Provider Unav ailable Reason for Visit * Reason Comments E-prescribe Rx Request Encounter Details Date Type Department Care Team Description 05/14/2022 Refill Adult Medicine - [place] [address] [place] [address] Dalila Tucker NP [address] [place] [address] E-prescribe Rx Request Social History Tobacco Use [...] suspected to have Coronavirus/COVID-19? No / Unsure 05/15/2022 9:36 AM EST documented as of this encounter Miscellaneous Notes * Telephone Encounter - Kaylen Gale - 05/15/2022 9:19 AM EST REFILL LAST OFFICE VIST: 02/19/22 LAST PCP VISIT: NEXT OFFICE VISIT: documented in this encounter Plan of Treatment Not on file documented as of this encounter Visit Diagnoses Diagnosis Idiopathic chronic gout of foot without tophus, unspecified laterality documented in this encounter Care Teams Underwear Finisher Relationship Specialty Start Date End Date Casimiro Cat MD [address] [place] [address] PCP - General Internal Medicine 09/13/11 03/15/24 Stephanie Espinosa PA [address] [place] [address] PCP - General Medical Physician Handy Worker 03/16/24 documented as of this encounter
--- OUTSIDE RECORDS SUMMARY | 2024-10-06 08:23 | XMS_ITS | Encounter Summary ---
Author Organization [facility] Address [address] [place] [address] Care Team Providers Care Program Support Clerk Name Role Phone Casimiro Cat MD Primary Care Provider +1- [phone] Stephanie Espinosa Primary Care Provider Unav ailable Encounter Details Date Type Department Care Team Description 02/27/2015 Liquor Bridge Operator Report Medical Records [address] [place] [address] Pasha Matson Social History Tobacco Use Types [...] on filedocumented in this encounter Care Teams Program Support Clerk Relationship Specialty Start Date End Date Casimiro Cat MD [address] [place], [place] [phone] PCP - General Internal Medicine 09/13/11 03/15/24 Stephanie Espinosa PA [address] [place] [address] PCP - General Medical Physician Accountant Auditor 03/16/24 documented as of this encounter
--- OUTSIDE RECORDS SUMMARY | 2024-10-06 08:23 | XMS_ITS | Encounter Summary ---
Author Organization [facility] Address [address] [place] [address] Care Team Providers Care Solid Waste Facility Supervisor Name Role Phone Casimiro Cat MD Primary Care Provider +1- [phone] Stephanie Espinosa Primary Care Provider Unav ailable Encounter Details Date Type Department Care Team Description 07/25/2022 Pt. Non Urgent Medical Question [facility] 175 [facility] [address] [place] [phone] Hallie Gustafson MD 175 [facility] [place] [address] [place], [place] [phone] Social History Tobacco Use Types Packs/Day Years [...] on filedocumented in this encounter Care Teams Solid Waste Facility Supervisor Relationship Specialty Start Date End Date Casimiro Cat MD [address] [place] [address] PCP - General Internal Medicine 09/13/11 03/15/24 Stephanie Espinosa PA [address] [place] [address] PCP - General Medical Physician Industrial Engineering Technologist 03/16/24 documented as of this encounter
--- OUTSIDE RECORDS SUMMARY | 2024-10-06 08:23 | XMS_ITS | Clinical Summary ---
Author Organization [facility] Address [address] [place] [address] Care Team Providers Care Aviation All Source Intelligence Name Role Phone Casimiro Cat MD Primary Care Provider + [phone] Allergies No known active allergies Medications Medication [...] age to complete this topic Care Teams Aviation All Source Intelligence Relationship Specialty Start Date End Date Casimiro Cat MD PCP - General Blintze Roller 08/13/22
--- OUTSIDE RECORDS SUMMARY | 2024-10-06 08:23 | XMS_ITS | Encounter Summary ---
Author Organization [facility] Address [address] [place] [address] Care Team Providers Care Novelty Dipper Name Role Phone Casimiro Cat MD Primary Care Provider +1- [phone] Stephanie Espinosa Primary Care Provider Unav ailable Encounter Details Date Type Department Care Team Description 12/10/2022 Laboratory Veterinarian Report Medical Records [address] [place] [address] Jair Bowling MD Social History Tobacco Use [...] on filedocumented in this encounter Care Teams Novelty Dipper Relationship Specialty Start Date End Date Casimiro Cat MD [address] [place] [address] PCP - General Internal Medicine 09/13/11 03/15/24 Stephanie Espinosa PA [address] [place] [address] PCP - General Medical Physician Cold Food Packer 03/16/24 documented as of this encounter
--- OUTSIDE RECORDS SUMMARY | 2024-10-06 08:23 | XMS_ITS | Encounter Summary ---
Author Organization [facility] Address [address] [place] [address] Care Team Providers Care Rope Walker Name Role Phone Casimiro Cat MD Primary Care Provider +1- [phone] Stephanie Espinosa Primary Care Provider Unav ailable Encounter Details Date Type Department Care Team Description 07/24/2022 Pt. Non Urgent Medical Question [facility] [address] [phone] Netta Mathis PA-C [address] [address] Social History Tobacco Use Types Packs/Day Years [...] on filedocumented in this encounter Care Teams Rope Walker Relationship Specialty Start Date End Date Casimiro Cat MD [address] [place] [address] PCP - General Internal Medicine 09/13/11 03/15/24 Stephanie Espinosa PA [address] [place] [address] PCP - General Medical Physician Electronic Assembly 03/16/24 documented as of this encounter
[2024-10-06 08:24] VITALS: BP 124/70; PULSE 74; O2SAT 97; BMI 24.0
--- OUTSIDE RECORDS SUMMARY | 2024-10-06 08:24 | XMS_ITS | Encounter Summary ---
Author Organization [facility] Address [address] [place] [address] Care Team Providers Care Bay Stocker Name Role Phone Casimiro Cat MD Primary Care Provider +1- [phone] Stephanie Espinosa Primary Care Provider Unav ailable Encounter Details Date Type Department Care Team Description 08/26/2022 Pt. Non Urgent Medical Question [facility] [address] [phone] Netta Mathis PA-C [address] [address] Social History Tobacco Use Types Packs/Day Years [...] on filedocumented in this encounter Care Teams Bay Stocker Relationship Specialty Start Date End Date Casimiro Cat MD [address] [place] [address] PCP - General Internal Medicine 09/13/11 03/15/24 Stephanie Espinosa PA [address] [place] [address] PCP - General Medical Physician Shank Cutter 03/16/24 documented as of this encounter
--- OUTSIDE RECORDS SUMMARY | 2024-10-06 08:24 | XMS_ITS | Encounter Summary ---
Author Organization [facility] Address [address] [place] [address] Care Team Providers Care Student Development Specialist Name Role Phone Casimiro Cat MD Primary Care Provider +1- [phone] Stephanie Espinosa Primary Care Provider Unav ailable Reason for Referral * Radiology Services - Closed Specialty Diagnoses / Procedures Referred By Dinoraac t Referred To Contact Radiology Diagnoses Radiculopathy of arm Procedures MRI OF CERVICAL SPINE NO CONTRAST Casimiro Cat MD [address] [place] [address] [place] [address] Referral ID Status Reason Start Date Expiration Date Visits Re quested Visits Authorized [id number] Closed 03/08/2015 04/22/2015 1 1 Encounter Details Date Type Department Care Team Description 03/07/2015 Pt. Non Urgent Medical Question Adult Medicine - [place] [address] [place] [address] Casimiro Cat MD [address] [place] [address] Radiculopathy of arm (Primary Dx) Social History Tobacco Use Types Packs/Day Years [...] Progress Notes * Jacinta Roberson L.P.N. - 03/07/2015 1:07 PM EDTFrom: Angel Clay To: Casimiro Cat MD Sent: 03/07/2015 1:03 PM EDT Subject: Pinche Nerve Dr Cat, After our visit on Friday I called [facility] and was still told I had to wait until the of the Mo before an MRI could be scheduled. Then I called [employer] and was told the MRI would needto be pre-approved (taking 2 or 3 Days) and if an Injection was needed Prior approval would be needed. I would like to stay with [place] and not go to [facility] as the Insurance make that not good..Let's get the x-ray from [facility] and help me get the MRI RACHEL as further damage to the nerve seems not to make sense Let me know what I can do to help. Orestes Clay. documented in this encounter Plan of Treatment Not on file documented as of this encounter Results * MRI OF CERVICAL SPINE NO CONTRAST (03/13/2015 6:35 PM EDT) 03/15/2015 5:24 PM EDT Impressions [facility] - 03/15/2015 5:31 PM EDT Impression: Multilevel degenerative disc disease as detailed above. Narrative [facility] - 03/15/2015 5:31 PM EDT Cervical spine MRI: History: Neck pain with right arm radicular symptoms Multi-planer, multisequence cervical spine MRI on 1.5 Gabriela magnet using Department protocol. Cervicomedullary junction appears normal. Cervical vertebrae and cervical spinal cord appear normal in size and signal intensity. No extraspinal pathology is identified. C2-3: Normal intervertebral disc space. C3-4: Uncovertebral spurring causing severe bilateral foraminal narrowing right greater than left. C4-5: Mild broad-based disc osteophyte complex effacing the anterior thecal sac without cord deformity. Uncovertebral spurring causing moderate right and mild left neural foraminal stenosis C5-6: Severe degenerative disc space narrowing. Broad-based disc osteophyte complex effacing the anterior thecal sac without cord deformity and narrowing the right lateral recess. Small focal disc protrusion right of midline causing mild deformity of the right anterior cord surface. Moderate bilateral foraminal stenosis. C6-7: Degenerative disc space narrowing with broad-based disc osteophyte complex effacing the anterior thecal sac with mild deformity of the anterior cord surface. Uncovertebral spurring causing severe bilateral foraminal stenosis. Procedure Note Jair Mackey MD - 03/15/2015 Cervical spine MRI: History: Neck pain with right arm radicular symptoms Multi-planer, multisequence cervical spine MRI on 1.5 Gabriela magnet usingDepartment protocol. Cervicomedullary junction appears normal. Cervical vertebrae and cervicalspinal cord appear normal in size and signal intensity. No extraspinal pathology isidentified. C2-3: Normal intervertebral disc space. C3-4: Uncovertebral spurring causing severe bilateral foraminal narrowingright greater than left. C4-5: Mild broad-based disc osteophyte complex effacing the anteriorthecal sac without cord deformity. Uncovertebral spurring causing moderate right and mild leftneural foraminal stenosis C5-6: Severe degenerative disc space narrowing. Broad-based discosteophyte complex effacing the anterior thecal sac without cord deformity and narrowing the rightlateral recess. Small focal disc protrusion right of midline causing mild deformity of the rightanterior cord surface. Moderate bilateral foraminal stenosis. C6-7: Degenerative disc space narrowing with broad-based disc osteophytecomplex effacing the anterior thecal sac with mild deformity of the anterior cord surface.Uncovertebral spurring causing severe bilateral foraminal stenosis. Impression: Multilevel degenerative disc disease as detailed above. Casimiro Cat MD MRI [facility] documented in this encounter Visit Diagnoses Diagnosis Radiculopathy of arm- Primary Brachial neuritis or radiculitis nos Radiculopathy of arm Brachial neuritis or radiculitis nos documented in this encounter Care Teams Student Development Specialist Relationship Specialty Start Date End Date Casimiro Cat MD [address] [place] [address] PCP - General Internal Medicine 09/13/11 03/15/24 Stephanie Espinosa PA [address] [place] [address] PCP - General Medical Physician Christmas Tree Farmer 03/16/24 documented as of this encounter
--- OUTSIDE RECORDS SUMMARY | 2024-10-06 08:24 | XMS_ITS | Encounter Summary ---
Author Organization [facility] Address [address] [place] [address] Care Team Providers Care Senior Research Engineer Name Role Phone Casimiro Cat MD Primary Care Provider +1 [phone] Stephanie Espinosa Primary Care Provider Unav ailable Reason for Visit * Reason Onset Date Comments Provider Call Back 08/21/2022 Encounter Details Date Type Department Care Team Description 08/21/2022 Telephone [facility] - [facility] [address] [phone] Tobi Moise MD [address] [place] [address] Provider Call Back Social History Tobacco Use [...] Please advise. Please call patient back at [phone].Thanks. documented in this encounter Plan of Treatment Not on file documented as of this encounter Visit Diagnoses Not on filedocumented in this encounter Care Teams Senior Research Engineer Relationship Specialty Start Date End Date Casimiro Cat MD [address] [place] [address] PCP - General Internal Medicine 09/13/11 03/15/24 Stephanie Espinosa PA [address] [place] [address] PCP - General Medical Physician Medical Resident 03/16/24 documented as of this encounter
--- OUTSIDE RECORDS SUMMARY | 2024-10-06 08:24 | XMS_ITS | Encounter Summary ---
Author Organization [facility] Address [address] [place] [address] Care Team Providers Care Optical Technician Name Role Phone Casimiro Cat MD Primary Care Provider +1- [phone] Stephanie Espinosa Primary Care Provider Unav ailable Encounter Details Date Type Department Care Team Description 05/13/2023 Pt. Non Urgent Medical Question Adult Medicine - [place] [address] [place] [address] Casimiro Cat MD [address] [place] [address] Social History Tobacco Use Types Packs/Day Years [...] suspected to have Coronavirus/COVID-19? No / Unsure 04/25/2023 1:26 PM EST documented as of this encounter Miscellaneous Notes * Telephone Encounter - Lu Cruz L.P.N. - 05/13/2023 9:11 AM ESTFrom: Angel Clay To: Dino Cat Sent: 05/13/2023 8:47 AM EST Subject: Referral To Oncology/Hematology On 04/[address] Yonatan Garay for a hospital discharge follow-up . A Referral was ordered for the above. Should have been contacted within 5-7 business days. It is now 05/13 and I have not been contacted for this URGENT apointment. Please make this happen RACHEL. Thanks documented in this encounter Plan of Treatment Not on file documented as of this encounter Visit Diagnoses Not on filedocumented in this encounter Care Teams Optical Technician Relationship Specialty Start Date End Date Casimiro Cat MD [address] [place] [address] PCP - General Internal Medicine 09/13/11 03/15/24 Stephanie Espinosa PA [address] [place] [address] PCP - General Medical Physician Diet Technician Registered 03/16/24 documented as of this encounter
--- OUTSIDE RECORDS SUMMARY | 2024-10-06 08:24 | XMS_ITS | Encounter Summary ---
Author Organization [facility] Address [address] [place] [address] Care Team Providers Care Still Operator Batch Or Continuous Name Role Phone Casimiro Cat MD Primary Care Provider +1- [phone] Stephanie Espinosa Primary Care Provider Unav ailable Encounter Details Date Type Department Care Team Description 08/23/2022 Pt. Non Urgent Medical Question [facility] - [facility] 175 [facility] [address] [place] [phone] Tobi Moise MD 175 [facility] [address] [place] [address] Social History Tobacco Use Types Packs/Day Years [...] on filedocumented in this encounter Care Teams Still Operator Batch Or Continuous Relationship Specialty Start Date End Date Casimiro Cat MD [address] [place] [address] PCP - General Internal Medicine 09/13/11 03/15/24 Stephanie Espinosa PA [address] [place] [address] PCP - General Medical Physician Horticultural Specialty Grower Field 03/16/24 documented as of this encounter
--- OUTSIDE RECORDS SUMMARY | 2024-10-06 08:24 | XMS_ITS | Encounter Summary ---
Author Organization [facility] Address [address] [place] [address] Care Team Providers Care Health Practice Manager Name Role Phone Casimiro Cat MD Primary Care Provider +1- [phone] Stephanie Espinosa Primary Care Provider Unav ailable Encounter Details Date Type Department Care Team Description 02/09/2020 Pt. Non Urgent Medical Question Adult Medicine - [place] [address] [place] [address] Casimiro Cat MD [address] [place] [address] Social History Tobacco Use Types Packs/Day Years [...] Progress Notes * Mary Reddy L.P.N. - 02/09/2020 12:27 PM EDTFrom: Angel Clay To: Casimiro Cat MD Sent: 02/09/2020 12:27 PM EDT Subject: FLU Shot Can We get a flu shot at our Feb 22 visit .. Would make things easier .. My Ernie Clay and Myself ?? documented in this encounter Plan of Treatment Not on file documented as of this encounter Visit Diagnoses Not on filedocumented in this encounter Care Teams Health Practice Manager Relationship Specialty Start Date End Date Casimiro Cat MD [address] [place] [address] PCP - General Internal Medicine 09/13/11 03/15/24 Stephanie Espinosa PA [address] [place] [address] PCP - General Medical Physician Partner Marketing Manager 03/16/24 documented as of this encounter
--- OUTSIDE RECORDS SUMMARY | 2024-10-06 08:24 | XMS_ITS | Encounter Summary ---
Author Organization [facility] Address [address] [place] [address] Care Team Providers Care Associate Merchant Name Role Phone Casimiro Cat MD Primary Care Provider +1- [phone] Stephanie Espinosa Primary Care Provider Unav ailable Encounter Details Date Type Department Care Team Description 03/30/2020 Refill Adult Medicine - [place] [address] [place] [address] Casimiro Cat MD [address] [place] [address] Social History Tobacco Use Types Packs/Day Years [...] on filedocumented in this encounter Care Teams Associate Merchant Relationship Specialty Start Date End Date Casimiro Cat MD [address] [place] [address] PCP - General Internal Medicine 09/13/11 03/15/24 Stephanie Espinosa PA [address] [place] [address] PCP - General Medical Physician Tire Design Engineer 03/16/24 documented as of this encounter
--- OUTSIDE RECORDS SUMMARY | 2024-10-06 08:24 | XMS_ITS | Encounter Summary ---
Author Organization [facility] Address [address] [place] [address] Care Team Providers Care Library Circulation Clerk Name Role Phone Casimiro Cat MD Primary Care Provider +1- [phone] Stephanie Espinosa Primary Care Provider Unav ailable Encounter Details Date Type Department Care Team Description 12/10/2017 Refill Adult Medicine [facility] [address] [place] [address] Epifanio Carl PA Social History Tobacco Use [...] on filedocumented in this encounter Care Teams Library Circulation Clerk Relationship Specialty Start Date End Date Casimiro Cat MD [address] [place] [address] PCP - General Internal Medicine 09/13/11 03/15/24 Stephanie Espinosa PA [address] [place] [address] PCP - General Medical Physician Wheat Grower 03/16/24 documented as of this encounter
--- OUTSIDE RECORDS SUMMARY | 2024-10-06 08:24 | XMS_ITS | Encounter Summary ---
Author Organization [facility] Address [address] [place] [address] Care Team Providers Care Machine Feeder Floorperson Name Role Phone Casimiro Cat MD Primary Care Provider +1- [phone] Stephanie Esipnosa Primary Care Provider Unav ailable Encounter Details Date Type Department Care Team Description 08/26/2022 Pt. Non Urgent Medical Question [facility] [address] [phone] Mary Lenz MD [address] [address] Social History Tobacco Use Types Packs/Day Years [...] on filedocumented in this encounter Care Teams Machine Feeder Floorperson Relationship Specialty Start Date End Date Casimiro Cat MD [address] [place] [address] PCP - General Internal Medicine 09/13/11 03/15/24 Stephanie Espinosa PA [address] [place] [address] PCP - General Medical Physician Pmo Project Manager 03/16/24 documented as of this encounter
--- OUTSIDE RECORDS SUMMARY | 2024-10-06 08:24 | XMS_ITS | Encounter Summary ---
Author Organization [facility] Address [address] [place] [address] Care Team Providers Care Contact Center Representative Name Role Phone Casimiro Cat MD Primary Care Provider +1 [phone] Stephanie Espinosa Primary Care Provider Unav ailable Encounter Details Date Type Department Care Team Description 06/03/2023 Embroidery Supervisor Report Medical Records [address] [place] [address] Jair Bowling MD Social History Tobacco Use [...] on filedocumented in this encounter Care Teams Contact Center Representative Relationship Specialty Start Date End Date Casimiro Cat MD [address] [place] [address] PCP - General Internal Medicine 09/13/11 03/15/24 Stephanie Espinosa PA [address] [place] [address] PCP - General Medical Physician Neon Sign Worker 03/16/24 documented as of this encounter
--- OUTSIDE RECORDS SUMMARY | 2024-10-06 08:24 | XMS_ITS | Encounter Summary ---
Author Organization [facility] Address [address] [place] [address] Care Team Providers Care Mobile Health Vehicle Operator Name Role Phone Casimiro Cat MD Primary Care Provider +1 [phone] Stephanie Espinosa Primary Care Provider Unav ailable Reason for Visit * Reason Onset Date Comments Surgery Cancelled 09/27/2022 Encounter Details Date Type Department Care Team Description 09/27/2022 Telephone [facility] 175 [facility] [address] [place] [phone] Tobi Moise MD 175 [facility] [address] [place] [address] Surgery Cancelled Social History Tobacco Use Types [...] on filedocumented in this encounter Care Teams Mobile Health Vehicle Operator Relationship Specialty Start Date End Date Casimiro Cat MD [address] [place] [address] PCP - General Internal Medicine 09/13/11 03/15/24 Stephanie Espinosa PA [address] [place] [address] PCP - General Medical Physician Engraving Press Operator 03/16/24 documented as of this encounter
--- OUTSIDE RECORDS SUMMARY | 2024-10-06 08:24 | XMS_ITS | Encounter Summary ---
Author Organization [facility] Address [address] [place] [address] Care Team Providers Care Automobile Technician Name Role Phone Casimiro Cat MD Primary Care Provider +1- [phone] Stephanie Espinosa Primary Care Provider Unav ailable Encounter Details Date Type Department Care Team Description 08/14/2022 Pt. Non Urgent Medical Question [facility] 175 [facility] [address] [place] [phone] Tobi Moise MD 175 [facility] [address] [place] [address] Social History Tobacco Use Types Packs/Day Years [...] on filedocumented in this encounter Care Teams Automobile Technician Relationship Specialty Start Date End Date Casimiro Cat MD [address] [place] [address] PCP - General Internal Medicine 09/13/11 03/15/24 Stephanie Espinosa PA [address] [place] [address] PCP - General Medical Physician Uc Architect 03/16/24 documented as of this encounter
--- OUTSIDE RECORDS SUMMARY | 2024-10-06 08:25 | XMS_ITS | Encounter Summary ---
Author Organization [facility] Address [address] [place] [address] Care Team Providers Care Home Energy Consultant Name Role Phone Casimiro Cat MD Primary Care Provider +1- [phone] Stephanie Espinosa Primary Care Provider Unav ailable Encounter Details Date Type Department Care Team Description 10/29/2018 Aircraft Armament Mechanic Report Medical Records [address] [place] [address] Basim George MD Social History Tobacco Use [...] on filedocumented in this encounter Care Teams Home Energy Consultant Relationship Specialty Start Date End Date Casimiro Cat MD [address] [place] [address] PCP - General Internal Medicine 09/13/11 03/15/24 Stephanie Espinosa PA [address] [place] [address] PCP - General Medical Physician Manager Mechanical Maintenance 03/16/24 documented as of this encounter
--- OUTSIDE RECORDS SUMMARY | 2024-10-06 08:25 | XMS_ITS | Encounter Summary ---
Author Organization [facility] Address [address] [place] [address] Care Team Providers Care Reception Manager Name Role Phone Casimiro Cat MD Primary Care Provider +1- [phone] Stephanie Espinosa Primary Care Provider Unav ailable Encounter Details Date Type Department Care Team Description 2023 Orders Only Medical Records [address] [place] [address] Baron Thakur MD Social History Tobacco Use [...] Name Priority Date/Time Associated Diagnosis Comments OUTSIDE LAB Routine 07/10/2023 documented in this encounter Results * OUTSIDE LAB (07/10/2023) Baron Thakur MD LAB documented in this encounter Visit Diagnoses Not on filedocumented in this encounter Care Teams Reception Manager Relationship Specialty Start Date End Date Casimiro Cat MD [address] [place] [address] PCP - General Internal Medicine 09/13/11 03/15/24 Stephanie Espinosa PA [address] [place], [place] PCP - General Medical Physician Package Maker 03/16/24 documented as of this encounter
--- OUTSIDE RECORDS SUMMARY | 2024-10-06 08:25 | XMS_ITS | Encounter Summary ---
Author Organization [facility] Address [address] [place] [address] Care Team Providers Care Ceo Name Role Phone Casimiro Cat MD Primary Care Provider +1- [phone] Stephanie Espinosa Primary Care Provider Unav ailable Encounter Details Date Type Department Care Team Description 06/22/2021 Pt. Non Urgent Medical Question Adult Medicine - [place] [address] [place] [address] Casimiro Cat MD [address] [place] [address] Social History Tobacco Use Types Packs/Day Years [...] on filedocumented in this encounter Care Teams Ceo Relationship Specialty Start Date End Date Casimiro Cat MD [address] [place] [address] PCP - General Internal Medicine 09/13/11 03/15/24 Stephanie Espinosa PA [address] [place] [address] PCP - General Medical Physician Editorial Manager 03/16/24 documented as of this encounter
--- OUTSIDE RECORDS SUMMARY | 2024-10-06 08:25 | XMS_ITS | Encounter Summary ---
Author Organization [facility] Address [address] [place] [address] Care Team Providers Care Cider Maker Name Role Phone Casimiro Cat MD Primary Care Provider +1- [phone] Stephanie Espinosa Primary Care Provider Unav ailable Encounter Details Date Type Department Care Team Description 09/02/2023 Pt. Non Urgent Medical Question Adult Medicine - [place] [address] [place] [address] Casimiro Cat MD [address] [place] [address] Social History Tobacco Use Types Packs/Day Years [...] Telephone Encounter - Valerie Roberts M.A. - 09/02/2023 4:52 PM EDTFrom: Angel Clay To: Dino Cat Sent: 09/02/2023 4:49 PM EDT Subject: 2Nd Shingles Shot Just got my second shingles shot today at [facility] documented in this encounter Plan of Treatment Not on file documented as of this encounter Visit Diagnoses Not on filedocumented in this encounter Care Teams Cider Maker Relationship Specialty Start Date End Date Casimiro Cat MD [address] [place] [address] PCP - General Internal Medicine 09/13/11 03/15/24 Stephanie Espinosa PA [address] [place] [address] PCP - General Medical Physician Gas Meter Reader 03/16/24 documented as of this encounter
--- OUTSIDE RECORDS SUMMARY | 2024-10-06 08:25 | XMS_ITS | Encounter Summary ---
Author Organization [facility] Address [address] [place] [address] Care Team Providers Care Drapery Maker Name Role Phone Casimiro Cat MD Primary Care Provider +1- [phone] Stephanie Espinosa Primary Care Provider Unav ailable Encounter Details Date Type Department Care Team Description 08/01/2023 Telephone [facility] [address] [phone] Mary Lenz MD [address] [address] Social History Tobacco Use Types Packs/Day Years [...] * Telephone Encounter - Shelbie Najera - 08/18/2023 9:20 AM EST Called patient [...] (acquired) documented in this encounter Care Teams Drapery Maker Relationship Specialty Start Date End Date Casimiro Cat MD [address] [place] [address] PCP - General Internal Medicine 09/13/11 03/15/24 Stephanie Espinosa PA [address] [place] [address] PCP - General Medical Physician Biomedical Manager 03/16/24 documented as of this encounter
--- OUTSIDE RECORDS SUMMARY | 2024-10-06 08:25 | XMS_ITS | Encounter Summary ---
Author Organization [facility] Address [address] [place] [address] Care Team Providers Care Demographic Analyst Name Role Phone Casimiro Cat MD Primary Care Provider +1- [phone] Stephanie Espinosa Primary Care Provider Unav ailable Encounter Details Date Type Department Care Team Description 06/30/2020 Refill Adult Medicine [facility] [address] [place] [address] Casimiro Cat MD [address] [place] [address] Social History Tobacco Use Types Packs/Day Years [...] on filedocumented in this encounter Care Teams Demographic Analyst Relationship Specialty Start Date End Date Casimiro Cat MD [address] [place] [address] PCP - General Internal Medicine 09/13/11 03/15/24 Stephanie Espinosa PA [address] [place] [address] PCP - General Medical Physician Station Tender 03/16/24 documented as of this encounter
--- OUTSIDE RECORDS SUMMARY | 2024-10-06 08:25 | XMS_ITS | Encounter Summary ---
Author Organization [facility] Address [address] [place] [address] Care Team Providers Care Manager Pathology Name Role Phone Casimiro Cat MD Primary Care Provider +1 [phone] Stephanie Espinosa Primary Care Provider Unav ailable Reason for Visit * Reason Onset Date Comments refill request 06/21/2020 Encounter Details Date Type Department Care Team Description 06/21/2020 Refill Adult Medicine - [place] [address] [place] [address] Casimiro Cat MD [address] [place] [address] refill request Social History Tobacco Use Types Packs/Day Years [...] * Telephone Encounter - Alex Karan - 06/21/2020 8:42 AM EST Patient would like script to be: E-PRESCRIBED/FAXED TO PHARMACY WHEN WAS THE PATIENT'S LAST APPOINTMENT IN ADULT MEDICINE? 02/22/20 WHEN WAS THE LAST TIME THE PATIENT SAW THEIR PCP? Same as above Does patient have an upcoming appointment? No-patient refused appointment, will call back to book appointment (THE MEDICATION REQUESTED IS [...] N/A Patients current insurance carrier is: Payor: [place] [employer] / Plan: [facility] MEDICARE COMPLETE $0 [id number] / Product Type: HMO [id number] documented in this encounter Plan of Treatment Not on file documented as of this encounter Visit Diagnoses Not on filedocumented in this encounter Care Teams Manager Pathology Relationship Specialty Start Date End Date Casimiro Cat MD [address] [place] [address] PCP - General Internal Medicine 09/13/11 03/15/24 Stephanie Espinosa PA [address] [place] [address] PCP - General Medical Physician Valve Seater Operator 03/16/24 documented as of this encounter
--- OUTSIDE RECORDS SUMMARY | 2024-10-06 08:25 | XMS_ITS | Encounter Summary ---
Author Organization [facility] Address [address] [place] [address] Care Team Providers Care Student Liaison Officer Name Role Phone Casimiro Cat MD Primary Care Provider +1- [phone] Stephanie Espinosa Primary Care Provider Unav ailable Encounter Details Date Type Department Care Team Description 08/24/2018 Copy Preparer Report Medical Records [address] [place] [address] Basim George MD Social History Tobacco Use [...] on filedocumented in this encounter Care Teams Student Liaison Officer Relationship Specialty Start Date End Date Casimiro Cat MD [address] [place] [address] PCP - General Internal Medicine 09/13/11 03/15/24 Stephanie Espinosa PA [address] [place] [address] PCP - General Medical Physician Final Inspector Balance Wheel 03/16/24 documented as of this encounter
--- OUTSIDE RECORDS SUMMARY | 2024-10-06 08:25 | XMS_ITS | Encounter Summary ---
Author Organization [facility] Address [address] [place] [address] Care Team Providers Care Wood Treating Inspector Name Role Phone Casimiro Cat MD Primary Care Provider +1- [phone] Stephanie Espinosa Primary Care Provider Unav ailable Encounter Details Date Type Department Care Team Description 03/21/2015 Machinist Outside Report Medical Records [address] [place] [address] Alonzo Barbosa PA-C [address] [place] [address] Social History Tobacco Use Types Packs/Day Years [...] on filedocumented in this encounter Care Teams Wood Treating Inspector Relationship Specialty Start Date End Date Casimiro Cat MD [address] [place] [address] PCP - General Internal Medicine 09/13/11 03/15/24 Stephanie Espinosa PA [address] [place] [address] PCP - General Medical Physician Inspector Penetrant 03/16/24 documented as of this encounter
--- OUTSIDE RECORDS SUMMARY | 2024-10-06 08:25 | XMS_ITS | Encounter Summary ---
Author Organization [facility] Address [address] [place] [address] Care Team Providers Care Grants Director Name Role Phone Casimiro Cat MD Primary Care Provider +1- [phone] Stephanie Espinosa Primary Care Provider Unav ailable Reason for Visit * Reason Comments E-prescribe Rx Request Encounter Details Date Type Department Care Team Description 03/03/2023 Refill Adult Medicine - [place] [address] [place] [address] Dalila Tucker NP [address] [place] [address] E-prescribe Rx Request Social History Tobacco Use [...] * Telephone Encounter - Arabella Hanson - 03/04/2023 2:10 PM EDT Refills Last office visit: 12/20/22 Last pcp: same Next office visit: 05/21/23 documented in this encounter Plan of Treatment Not on file documented as of this encounter Visit Diagnoses Not on filedocumented in this encounter Care Teams Grants Director Relationship Specialty Start Date End Date Casimiro Cat MD [address] [place] [address] PCP - General Internal Medicine 09/13/11 03/15/24 Stephanie Espinosa PA [address] [place] [address] PCP - General Medical Physician Toll Settlement Clerk 03/16/24 documented as of this encounter
--- OUTSIDE RECORDS SUMMARY | 2024-10-06 08:25 | XMS_ITS | Encounter Summary ---
Author Organization [facility] Address [address] [place] [address] Care Team Providers Care Architecture Analyst Name Role Phone Casimiro Cat MD Primary Care Provider +1 [phone] Stephanie Espinosa Primary Care Provider Unav ailable Encounter Details Date Type Department Care Team Description 09/03/2023 [facility] Nurse Practitioner Report Medical Records [address] [place] [address] Belkis Dumont NP Social History Tobacco Use [...] on filedocumented in this encounter Care Teams Architecture Analyst Relationship Specialty Start Date End Date Casimiro Cat MD [address] [place] [address] PCP - General Internal Medicine 09/13/11 03/15/24 Stephanie Espinosa PA [address] [place] [address] PCP - General Medical Physician Brazing Furnace Operator 03/16/24 documented as of this encounter
--- OUTSIDE RECORDS SUMMARY | 2024-10-06 08:25 | XMS_ITS | Encounter Summary ---
Author Organization [facility] Address [address] [place] [address] Care Team Providers Care Ceramics Instructor Name Role Phone Casimiro Cat MD Primary Care Provider +1- [phone] Stephanie Espinosa Primary Care Provider Unav ailable Encounter Details Date Type Department Care Team Description 11/10/2018 Electrophysiology Technician Report Medical Records [address] [place] [address] Basim George MD Social History Tobacco Use [...] on filedocumented in this encounter Care Teams Ceramics Instructor Relationship Specialty Start Date End Date Casimiro Cat MD [address] [place] [address] PCP - General Internal Medicine 09/13/11 03/15/24 Stephanie Espinosa PA [address] [place] [address] PCP - General Medical Physician Accounting Representative 03/16/24 documented as of this encounter
--- OUTSIDE RECORDS SUMMARY | 2024-10-06 08:25 | XMS_ITS | Encounter Summary ---
Author Organization [facility] Address [address] [place] [address] Care Team Providers Care Cash Management Specialist Name Role Phone Casimiro Cat MD Primary Care Provider +1- [phone] Stephanie Espinosa Primary Care Provider Unav ailable Encounter Details Date Type Department Care Team Description 10/29/2018 Needle Grinder Report Medical Records [address] [place] [address] Basim George MD Social History Tobacco Use [...] on filedocumented in this encounter Care Teams Cash Management Specialist Relationship Specialty Start Date End Date Casimiro Cat MD [address] [place] [address] PCP - General Internal Medicine 09/13/11 03/15/24 Stephanie Espinosa PA [address] [place] [address] PCP - General Medical Physician Chief Engineer Waterworks 03/16/24 documented as of this encounter
--- OUTSIDE RECORDS SUMMARY | 2024-10-06 08:25 | XMS_ITS | Encounter Summary ---
Author Organization [facility] Address [address] [place] [address] Care Team Providers Care Senior Label Specialist Name Role Phone Casimiro Cat MD Primary Care Provider +1- [phone] Stephaine Espinosa Primary Care Provider Unav ailable Encounter Details Date Type Department Care Team Description 11/17/2023 Pt. Non Urgent Medical Question [facility] 175 [facility] [address] [place] [phone] Mary Lenz MD 175 [facility] [address] [place] [address] Social History Tobacco Use Types Packs/Day Years [...] filedocumented in this encounter Care Teams Senior Label Specialist Relationship Specialty Start Date End Date Casimiro Cat MD [address] [place] [address] PCP - General Internal Medicine 09/13/11 03/15/24 Stephanie Espinosa PA [address] [place] [address] PCP - General Medical Physician Parking Enforcement Specialist 03/16/24 documented as of this encounter
--- OUTSIDE RECORDS SUMMARY | 2024-10-06 08:25 | XMS_ITS | Encounter Summary ---
Author Organization [facility] Address [address] [place] [address] Care Team Providers Care Otorhinolaryngologist Name Role Phone Casimiro Cat MD Primary Care Provider +1- [phone] Stephanie Espinosa Primary Care Provider Unav ailable Encounter Details Date Type Department Care Team Description 07/21/2018 Telephone Adult [address] [address] Casimiro Cat MD [address] [place] [address] Social History Tobacco Use Types Packs/Day Years [...] on filedocumented in this encounter Care Teams Otorhinolaryngologist Relationship Specialty Start Date End Date Casimiro Cat MD [address] [place] [address] PCP - General Internal Medicine 09/13/11 03/15/24 Stephanie Espinosa PA [address] [place] [address] PCP - General Medical Physician Manufacturing Machine Operator 03/16/24 documented as of this encounter
--- OUTSIDE RECORDS SUMMARY | 2024-10-06 08:25 | XMS_ITS | Encounter Summary ---
Author Organization [facility] Address [address] [place] [address] Care Team Providers Care Awning Craftsman Name Role Phone Casimiro Cat MD Primary Care Provider +1 [phone] Stephanie Espinosa Primary Care Provider Unav ailable Encounter Details Date Type Department Care Team Description 04/18/2023 [facility] Medical Records [address] [place] [address] Edgardo Bear MD Social History Tobacco Use Types Packs/Day [...] on filedocumented in this encounter Care Teams Awning Craftsman Relationship Specialty Start Date End Date Casimiro Cat MD [address] [place] [address] PCP - General Internal Medicine 09/13/11 03/15/24 Stephanie Espinosa PA [address] [place] [address] PCP - General Medical Physician Sales And Service Agent 03/16/24 documented as of this encounter
--- OUTSIDE RECORDS SUMMARY | 2024-10-06 08:25 | XMS_ITS | Encounter Summary ---
Author Organization [facility] Address [address] [place] [address] Care Team Providers Care Patient Service Coordinator Name Role Phone Casimiro Cat MD Primary Care Provider +1- [phone] Stephanie Espinosa Primary Care Provider Unav ailable Encounter Details Date Type Department Care Team Description 06/30/2020 Refill Adult Medicine [facility] [address] [place] [address] Casimiro Cat MD [address] [place] [address] Social History Tobacco Use Types Packs/Day Years [...] on filedocumented in this encounter Care Teams Patient Service Coordinator Relationship Specialty Start Date End Date Casimiro Cat MD [address] [place] [address] PCP - General Internal Medicine 09/13/11 03/15/24 Stephanie Espinosa PA [address] [place] [address] PCP - General Medical Physician Design Printer Balloon 03/16/24 documented as of this encounter
--- OUTSIDE RECORDS SUMMARY | 2024-10-06 08:25 | XMS_ITS | Encounter Summary ---
Author Organization [facility] Address [address] [place] [address] Care Team Providers Care Mechanical Product Design Engineer Name Role Phone Casimiro aCt MD Primary Care Provider [phone]- [phone] Stephanie Espinosa Primary Care Provider Unav ailable Encounter Details Date Type Department Care Team Description 06/20/2020 Refill Adult Medicine [facility] [address] [place] [address] Casimiro Cat MD [address] [place] [address] Social History Tobacco Use Types Packs/Day Years [...] on filedocumented in this encounter Care Teams Mechanical Product Design Engineer Relationship Specialty Start Date End Date Casimiro Cat MD [address] [place] [address] PCP - General Internal Medicine 09/13/11 03/15/24 Stephanie Espinosa PA [address] [place] [address] PCP - General Medical Physician [place] Laboratory Assistant 03/16/24 documented as of this encounter
--- OUTSIDE RECORDS SUMMARY | 2024-10-06 08:26 | XMS_ITS | Clinical Summary ---
Author Organization [facility] Address [address] [place] [address] Phone Care Team Providers Care Nuclear Equipment Test Engineer Name Role Phone Dino Cta MD Primary Care Provider [phone] Allergies No known active allergies Medications predniSONE [...] surgery 08/25/2024 Hypercalcemia 05/21/2024 PMR (polymyalgia rheumatica) ([facility] V24) 01/27 Degenerative arthritis of pr oximal [...] 09/11/2020 Malignant neoplasm of sigmoi d colon ([facility] V24, [facility] V28) 11/06/2018 Abnormal brain MRI 05/29/2018 Overview [...] Description 09/08/2024 10:30 AM EDT Consult Neurosurgery [facility] [address] [address] Alonzo Barbosa PA Cervical spondylosis with radiculopathy (Primary Dx); Hx of neck surgery 09/08/2024 9:10 AM EDT - 09/08/2024 11:59 PM EDT Hospital Encounter [facility] Xray [address] [place] [phone] Neck pain Discharge Disposition: Home or Self Care 08/25/2024 8:30 AM EDT Office Visit Adult Medicine [facility] [address] [place] [phone] Carole Lopez NP Primary hypertension (Primary Dx); History of DVT (deep vein thrombosis); Hx of neck surgery; Hyperlipidemia, unspecified hyperlipidemia type 08/25/2024 Telephone Neurosurgery [facility] [address] [address] Rosa Mejia MD Referral (Prev patient) from Last 3 Months Immunizations Name Administration [...] for your loved ones. For example, child and family counselor or elderly care for an older adult? [...] 10/22/2024 2:30 PM EDT Office Visit Neurosurgery [facility] [address] [place] [phone] Alonzo Barbosa PA [address] [place] [address] [place] [address] 03/02/2025 8:30 AM EDT Office Visit [facility] [address] [place] [address] Dino Cat MD [address] [place] [address] Health Maintenance Due Date Last Done Comments Hepatitis C Screening 05/18/2022 Medicare Annual Wellness Visit 05/18/2022 Pneumococcal Vaccine: 50+ Years (2 of 2 - PCV) 05/15/2023 05/15/2022 COVID-19 Vaccine (7 - Moderna risk 2023- season) 2024 03/09/2024, 05/27/2023, 03/24/2022, Additional history [...] Routine 09/08/2024 9:31 AM EDT Neck pain COLONOSCOPY Routine 06/03/2024 10:05 AM EST Personal [...] degenerative disc disease and/or postoperative change. Code 26953 -------- FINAL REPORT -------- Dictated By: Luiz Stevenson Dictated Date: 09/08/2024 09:54 ET Assigned Physician: Luiz Stevenson Reviewed and Electronically Signed By: Luiz Stevenson Signed Date: 09/08/2024 09:55 ET Workstation ID: [id number] Transcribed By: Self Edit Transcribed Date: 09/08/2024 [...] with degenerative disc disease and/orpostoperative change. Code 85559 -------- FINAL REPORT -------- Dictated By: Luiz Stevenson Dictated Date: 09/08/2024 09:54 ET Assigned Physician: Luiz Stevenson Reviewed and Electronically Signed By: Luiz Stevenson Signed Date: 09/08/2024 09:55 ET Workstation ID: [id number] Transcribed By: Self Edit Transcribed Date: 09/08/2024 09:54 ET us Alonzo MITCHELL IMG XR PROCEDURES Final Resul t * COLONOSCOPY Anesthesia - MAC; [facility] [...] office PRN. Narrative 06/03/2024 10:08 AM EST [facility] GI Patient Name: Angel Clay [...] Procedure Code(s): ? --- Professional --- ? 94376, Colonoscopy, flexible; with removal of ? tumor(s), polyp(s), or other lesion(s) by snare ? technique Diagnosis Code(s): ? --- Professional --- ? Z86.010, Personal history of colonic polyps ? Z85.038, Personal history of other malignant neoplasm ? of large intestine ? D12.3, Benign neoplasm of transverse colon (hepatic ? flexure or splenic flexure) ? Z98.0, Intestinal bypass and anastomosis status CPT copyright 2020 [employer]. All rights reserved. The codes documented in this report are preliminary and upon 7th grade teacher review may be revised to meet current compliance requirements. Estuardo Geronimo MD 06/03/2024 10:08:31 AM This report has been signed electronically.Estuardo Geronimo MD Number of Addenda: 0 Note Initiated On: 06/03/2024 9:45 AM Scope In: Scope Out: ? Endoscopy Department at [facility] - [address] [place] [address], ? [place] [address] Procedure Note Estuardo Geronimo MD - 06/03/2024 [facility] GI Patient Name: Angel Clay [...] Findings: There was evidence of a prior jjs-ij-atkmltbc-colonic anastomosis in the ascending colon. This was patent and was characterized by healthy appearing mucosa.The anastomosis was traversed. There was evidence of a prior qwa-sm-eqiwjrjn-colonic anastomosis in the proximal rectum. This was [...] retroflexion views. Procedure Code(s): --- Professional --- 72010, Colonoscopy, flexible; with removal of tumor(s), polyp(s), or other lesion(s) by snare technique Diagnosis Code(s): --- Professional --- Z86.010, Personal history of colonic polyps Z85.038, Personal history of other malignantneoplasm of large intestine D12.3, Benign neoplasm of transverse colon (hepatic flexure or splenic flexure) Z98.0, Intestinal bypass and anastomosis status CPT copyright 2020 [employer]. All rights reserved. The codes documented in this report are preliminary and upon 7th grade teacher reviewmay be revised to meet current compliance requirements. Estuardo Geronimo MD 06/03/2024 10:08:31 AM This report has been signed electronically.Estuardo Geronimo MD Number of Addenda: 0 Note Initiated On: 06/03/2024 9:45 AM Scope In: Scope Out: Endoscopy Department at [facility] - [address] [place] [phone] IMPRESSION: - Patent end-to-side ileo-colonic anastomosis, characterized [...] results. - Return to GI office PRN. us Estuardo Geronimo MD GI~PROCEDURE ORDERABLES Final Result [...] IMPRESSION: IMPRESSION: No visualized abdominal aortic aneurysm. C Jonatan Cat MD IM US PROCEDURES Final Result from Last 3 Months or Most Recently Relevant to Health Maintenance Insurance [employer] MEDICARE Advance Directives Documents on File Type Date Recorded Patient Assessment Technician Expl anation Health Care Decision (hx) 12/15/2018 AD CASTELLANOS DIRECTIVE Health Care Decision (hx) 12/15/2018 AD CASTELLANOS DIRECTIVE Health Care Decision (hx) 12/15/2018 AD CASTELLANOS DIRECTIVE Health Care Decision (hx) 12/15/2018 AD CASTELLANOS DIRECTIVE Health Care Decision (hx) 12/15/2018 AD CASTELLANOS DIRECTIVE Care Teams Nuclear Equipment Test Engineer Relationship Specialty Start Date End Date Dino Cat MD [address] [place] [address] PCP - General Internal Medicine 07/29/24
--- OUTSIDE RECORDS SUMMARY | 2024-10-06 08:26 | XMS_ITS | Encounter Summary ---
Author Organization [facility] Address [address] [place] [address] Care Team Providers Care Fitness Supervisor Name Role Phone Casimiro Cat MD Primary Care Provider [phone] Stephanie Espinosa Primary Care Provider Unav ailable Encounter Details Date Type Department Care Team Description 06/15/2015 Hospital Medical Records [address] [place] [address] Rosa Mejia MD [address] [place] [address] Social History Tobacco Use Types Packs/Day Years [...] filedocumented in this encounter Care Teams Fitness Supervisor Relationship Specialty Start Date End Date Casimiro Cat MD [address] [place] [address] PCP - General Internal Medicine 09/13/11 03/15/24 Stephanie Espinosa PA [address] [place] [address] PCP - General Medical Physician [employer] [place] [employer] 03/16/24 documented as of this encounter
--- OUTSIDE RECORDS SUMMARY | 2024-10-06 08:26 | XMS_ITS | Encounter Summary ---
Author Organization [facility] Address [address] [place] [address] Care Team Providers Care Head Turning Machine Operator Name Role Phone Casimiro Cat MD Primary Care Provider [phone] Stephanie Espinosa Primary Care Provider Unav ailable Encounter Details Date Type Department Care Team Description 03/30/2021 Orders Only Medical Records [address] [place] [address] Luiz Morales MD [address] [place] [address] Social History Tobacco Use Types Packs/Day Years [...] Date/Time Associated Diagnosis Comments OUTSIDE LAB Routine 03/22/2021 documented in this encounter Results * OUTSIDE LAB (03/22/2021) Luiz Morales MD LAB documented in this encounter Visit Diagnoses Not on filedocumented in this encounter Care Teams Head Turning Machine Operator Relationship Specialty Start Date End Date Casimiro Cat MD [address] [place] [address] PCP - General Internal Medicine 09/13/11 03/15/24 Stephanie Espinosa PA [address] [place] [address] PCP - General Medical Physician Financial Dealers 03/16/24 documented as of this encounter
--- OUTSIDE RECORDS SUMMARY | 2024-10-06 08:26 | XMS_ITS | Encounter Summary ---
Author Organization [facility] Address [address] [place] [address] Care Team Providers Care Clinical Biostatistician Name Role Phone Casimiro Cat MD Primary Care Provider [phone] Stephanie Espinosa Primary Care Provider Unav ailable Reason for Referral * EXTERNAL (Priority) - Authorized/Booked Specialty Diagnoses / Procedures Referred By Contact Referred To Contact Occupational Medicine / Occupational therapy Diagnoses Trigger index finger of left hand Trigger middle finger of left hand Procedures REFERRAL TO OCCUPATIONAL THERAPY Mary Lenz MD [address] [place] [address] External Occupational Referral ID Status Reason Start Date Expiration Date V isits Requested Visits Authorized [id number] Authorized/B ooked 01/02/2024 01/01/2025 6 6 Encounter Details Date Type Department Care Team Description 01/02/2024 Telephone [facility] [address] [phone] Mary Lenz MD [address] [place] [address] Social History Tobacco Use Types Packs/Day Years [...] Telephone Encounter - Mary Lenz MD - 01/02/2024 5:54 PM EDT Patient states that he has just been having pain in the PIP joints and it radiates up the fingers. It is not so much back down in the palm. It sounds like he might be getting a gout flareup. He is onallopurinol. Does not sound like an infection of any kind. Will have the patient come in Friday. documented in this encounter Plan of Treatment Not on file documented as of this encounter Visit Diagnoses Diagnosis Trigger index finger of left hand- Primary Trigger finger (acquired) Trigger middle finger of left hand Trigger finger (acquired) documented in this encounter Care Teams Clinical Biostatistician Relationship Specialty Start Date End Date Casimiro Cat MD [address] [place] [address] PCP - General Internal Medicine 09/13/11 03/15/24 Stephanie Espinosa PA [address] [place] [address] PCP - General Medical Physician Store Assistant 03/16/24 documented as of this encounter
--- OUTSIDE RECORDS SUMMARY | 2024-10-06 08:26 | XMS_ITS | Encounter Summary ---
Author Organization [facility] Address [address] [place] [address] Care Team Providers Care Network Operations Analyst Name Role Phone Stephanie Espinosa PA-C Primary Care Provi stephen Estuardo Geronimo MD Unavailable [phone] Encounter Details Date Type Department Care Team (Late st Contact Info) Description 02/26/2024 Scanned Document [address] [phone] Stephanie Espinosa PA-C [address] [place] [address] Social History Tobacco Use Types Packs/Day Years [...] on filedocumented in this encounter Care Teams Network Operations Analyst Relationship Specialty Start Date End Date Stephanie Espinosa PA-C [address] [place] [address] PCP - General Internal Medicine 01/28/24 09/20/24 Estuardo Geronimo MD [address] [place] [address] Gastroenterology 05/26/24 documented as of this encounter
--- OUTSIDE RECORDS SUMMARY | 2024-10-06 08:26 | XMS_ITS | Encounter Summary ---
Author Organization [facility] Address [address] [place] [address] Care Team Providers Care Senior Energy Trader Name Role Phone Casimiro Cat MD Primary Care Provider [phone] Stephanie Espinosa Primary Care Provider Unav ailable Encounter Details Date Type Department Care Team Description 03/08/2024 Pt. Non Urgent Medical Question [facility] [address] [facility] [address] [place] [phone] Mary Lenz MD [address] [facility] [address] [place] [address] Social History Tobacco Use Types Packs/Day Years [...] filedocumented in this encounter Care Teams Senior Energy Trader Relationship Specialty Start Date End Date Casimiro Cat MD [address] [place] [address] PCP - General Internal Medicine 09/13/11 03/15/24 Stephanie Espinosa PA [facility] Main [facility] [place] [address] PCP - General Medical Physician Inorganic Chemist 03/16/24 documented as of this encounter
--- OUTSIDE RECORDS SUMMARY | 2024-10-06 08:26 | XMS_ITS | Clinical Summary ---
Author Organization [facility] Address [address] [place] [address] Care Team Providers Care Treating Inspector Name Role Phone Estuardo Geronimo MD Unavailable [phone] Allergies No known active allergies Medications allopurinol (ZYLOPRIM) 300 MG tablet Take 1 tablet (300 mg total) by mouth daily. 4 Active amLODIPine (NORVASC) 2.5 MG tablet Take 1 tablet (2.5 mg total) by mouth daily. 3 Active benazepril (LOTENSIN) 40 MG tablet Take 1 tablet (40 mg total) by mouth daily. 3 Active Multiple Vitamins-[place] als (Centrum Silver 50+Men) Tab Active predniSONE [...] Date Type Department Care Team Description 09/20/2024 [facility] [address] [facility] [address] [place] [address] Stephanie Espinosa PA-C Hypercholesterolemia 07/13/2024 [facility] [address] [facility] [address] [place] [address] Stephanie Espinosa PA-C Hypercholesterolemia from Last 3 [...] drink = 0.6 oz pu re alcohol) [facility] [employer] Answer Date Recorded In the past 12 months has e [employer], gas, oil, or water xAd threatened to shut off services in your home? No 05/25/2024 Social Connection and Isolat ion Panel [NHANES] Answer Date Recorded In a typical week, how many times do you talk on the phone with family, friends, or neighbors? More than three times a week 05/25/2024 Frequency of Social Gatherin gs with Friends and Family Not on file 05/25/2024 Attends Anab[employer]ist Services Not on file 05/25 Active Member [...] any time in the past [facility], were you homeless or living in a alf (including now)? No 05/25/2024 Education Answer Date [...] Most Recently Relevant to Health Maintenance Insurance [facility] MEDICARE Care Teams Treating Inspector Relationship Specialty Start Date End Date Estuardo Geronimo MD Gastroenterology 05/26/24
--- OUTSIDE RECORDS SUMMARY | 2024-10-06 08:26 | XMS_ITS | Encounter Summary ---
Author Organization [facility] Address [address] [place] [address] Care Team Providers Care Threader Name Role Phone Casimiro Cat MD Primary Care Provider [phone] Stephanie Espinosa Primary Care Provider Unav ailable Encounter Details Date Type Department Care Team Description 04/11/2014 E Learning Specialist Report Medical Records [address] [place] [address] Didier Cavazos Social History Tobacco Use Types [...] on filedocumented in this encounter Care Teams Threader Relationship Specialty Start Date End Date Casimiro Cat MD [address] [place] [address] PCP - General Internal Medicine 09/13/11 03/15/24 Stephanie Espinosa PA [address] [place] [address] PCP - General Medical Physician Propeller Tester 03/16/24 documented as of this encounter
--- OUTSIDE RECORDS SUMMARY | 2024-10-06 08:26 | XMS_ITS | Encounter Summary ---
Author Organization [facility] Address [address] [place] [address] Care Team Providers Care Correspondence School Teacher Name Role Phone Casimiro Cat MD Primary Care Provider [phone] Stephanie Espinosa Primary Care Provider Unav ailable Encounter Details Date Type Department Care Team Description 05/22/2015 [place] Deckhand Report Medical Records [address] [place] [address] Rosa Mejia MD [address] [place] [address] Social History Tobacco Use Types Packs/Day Years [...] on filedocumented in this encounter Care Teams Correspondence School Teacher Relationship Specialty Start Date End Date Casimiro Cat MD [address] [place] [address] PCP - General Internal Medicine 09/13/11 03/15/24 Stephanie Espinosa PA [address] [place] [address] PCP - General Medical Physician Director Custom 03/16/24 documented as of this encounter
--- OUTSIDE RECORDS SUMMARY | 2024-10-06 08:26 | XMS_ITS | Encounter Summary ---
Author Organization [facility] Address [address] [place] [address] Care Team Providers Care Supervisor Money Room Name Role Phone Casimiro Cat MD Primary Care Provider [phone] Stephanie Espinosa Primary Care Provider Unav ailable Reason for Visit * Reason Comments E-prescribe Rx Request Encounter Details Date Type Department Care Team Description 10/19/2021 Refill Adult Medicine - [facility] [address] [place] [address] Cher Sy PA-C E-prescribe Rx Request Social [...] filedocumented in this encounter Care Teams Supervisor Money Room Relationship Specialty Start Date End Date Casimiro Cat MD [address] [place] [address] PCP - General Internal Medicine 09/13/11 03/15/24 Stephanie Espinosa PA [address] [place] [address] PCP - General Medical Physician Director [facility] 03/16/24 documented as of this encounter
--- OUTSIDE RECORDS SUMMARY | 2024-10-06 08:26 | XMS_ITS | Encounter Summary ---
Author Organization [facility] Address [address] [place] [address] Care Team Providers Care Promotions Assistant Sales Marketing Name Role Phone Casimiro Cat MD Primary Care Provider [phone] Stephanie Espinosa Primary Care Provider Unav ailable Encounter Details Date Type Department Care Team Description 04/24/2014 [facility] Medical Records [address] [place] [address] Alexis Low Social History Tobacco Use Types Packs/Day Years [...] on filedocumented in this encounter Care Teams Promotions Assistant Sales Marketing Relationship Specialty Start Date End Date Casimiro Cat MD [address] [place] [address] PCP - General Internal Medicine 09/13/11 03/15/24 Stephanie Espinosa PA [address] [place] [address] PCP - General Medical Physician Unix Administrator 03/16/24 documented as of this encounter
--- OUTSIDE RECORDS SUMMARY | 2024-10-06 08:26 | XMS_ITS | Encounter Summary ---
Author Organization [facility] Address [address] [place] [address] Care Team Providers Care Slubber Machine Operator Name Role Phone Casimiro Cat MD Primary Care Provider [phone] Stephanie Espinosa Primary Care Provider Unav ailable Encounter Details Date Type Department Care Team Description 12/20/2021 Pt. Referral Request [address] [address] Md Erasmo Social History Tobacco Use Types [...] on filedocumented in this encounter Care Teams Slubber Machine Operator Relationship Specialty Start Date End Date Casimiro Cat MD [address] [place] [address] PCP - General Internal Medicine 09/13/11 03/15/24 Stephanie Espinosa PA [address] [place] [address] PCP - General Medical Physician Pediatric Oncology Nurse 03/16/24 documented as of this encounter
--- OUTSIDE RECORDS SUMMARY | 2024-10-06 08:26 | XMS_ITS | Encounter Summary ---
Author Organization [employer] [facility] Address [address] [place] [address] Care Team Providers Care Breakdown Worker Name Role Phone Casimiro Cat MD Primary Care Provider [phone] Stephanie Espinosa Primary Care Provider Unav ailable Encounter Details Date Type Department Care Team Description 03/25/2022 Refill Rheumatology - [address] [address] Md Erasmo Social History Tobacco Use Types [...] laterality documented in this encounter Care Teams Breakdown Worker Relationship Specialty Start Date End Date Casimiro Cat MD [address] [place] [address] PCP - General Internal Medicine 09/13/11 03/15/24 Stephanie Espinosa PA [address] [place], [place] PCP - General Medical Physician Entry Level Manufacturing Engineer 03/16/24 documented as of this encounter
--- OUTSIDE RECORDS SUMMARY | 2024-10-06 08:26 | XMS_ITS | Clinical Summary ---
Author Organization [facility] Address [address] [place] [address] Care Team Providers Care Clinical Services Consultant Name Role Phone Stephanie Espinosa Primary Care Provider Unav ailable Allergies No known active allergies Medications Medication Sig Dispensed Refills Start Date End Date Status Multiple Vitamins-Minerals (CENTRUM SILVER OR) Take by mouth daily. 0 Active Bacillus Coagulans-Inulin (PROBIOTIC FORMULA OR) Take by mouth. 0 Active celecoxib (CELEBREX) 200 MG capsule 0 10/24/2023 Active predniSONE (DELTASONE) 2.5 MG tablet 0 10/16/2023 Active Apixaban 2.5 MG Tab Take by mouth 2 Times Daily. 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 1 mL 0 03/18/2024 Active triamcinolone acetonide (KENALOG-40) 40 MG/ML injectionIndications:O steoarthritis of proximal interphalangeal (PIP) joint of left middle finger Inject 1 mL into the articular space once for 1 dose. 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 08/30/22 Complete resolution of pain following US guided Depomedrol inj along Smeimem tendon. Will likely cancel arthroscopic surg for meniscus Overweight (BMI 25.0-29.9) 09/11/2020 Malignant neoplasm of sigmoid colon 10/15 Colon cancer screening 10/31/2018 Overview: 11/01. Colonoscopy. Adenoma x 3. Invasive adenocarcinoma. Repeat 1 yr 03/05 colonoscopy. Tubular adenoma x 5. Repeat 3 yrs 02/03 colonoscopy. Repeat 3 yrs Abnormal brain MRI 05/29/2018 Overview: 06/02- nonspecific findings, referred to neurology for abnormal neuro exam. Referred to ENT for paranasal sinus disease. Abnormal CXR 05/21/2018 Overview: Ct Angio- f/u cxr never done in 2017 Reordered 06/02---Not done History of pulmonary embolism 11/17/2015 Overview: 04/29 post rotator cuff repair. 04/07. Hosp PE. Right leg DVT. Unprovoked Hematology 07/09. Coag work up neg. Changed to eliquis 2.5 mg bid indefinitely History of polymyalgia rheumatica 2014 Overview: Onset approximately September 2014. Helped with prednisone but prednisone tapered off at the end of 2014. History of melanoma 10/13/2014 Overview: 09/28 s/p excision, right shoulder 12/18- could not be reached by derm, letter sent. History of DVT (deep vein thrombosis) Overview: 04/29 right arm post rotator cuff repair. Retinitis pigmentosa 12/06/2011 Overview: Capsulotomy 10/28 Hypercholesteremia 12/06/2011 Gout 09/23/2011 Overview: Intol indomethacin, motrin. Celebrex works well. allopurinol started 201409/03 allopurinol reduced to 300 mg HTN (hypertension) 09/23/2011 Resolved Problems Problem Noted Date Resolved Date Hx pulmonary embolism 04/27/2014 07/29/2014 Overview: R sided PE 04/15/14 R rotator cuff surgery Basilic vein thrombosis 04/27/2014 07/29/19 15 Overview: R upper extremity DVT (nonocclusive thrombus poximal R basilic vein 04/15/14 R rotator cuff surgery Immunizations Name Administration Dates Next Due ABRYSVO (RSV) PT REPORTED 06/17/2023 COVID-19 (Moderna) PT Reported 3,03/24/2022,04/09/2021,09/04,2020 Influenza (> 6 Months) 05/21/2016,07/01/2013, Influenza Flu (PT Reported) 04/26/2014 Influenza Vaccine-preservati ve Free-quadrivalent 4 Years 03/22/2021,02/22/2020 Influenza Vaccine-quadrivale nt 4 Years Plus 04/07/2018,04/23/2017 Influenza vaccine high dose age 65 and over 04/25/2023,03/24/2022,04/10/2019,05/21,07/01/2013,06/30/2012 Pneumoccoccal(Adult) Polysac charide PPSV23 05/15/2022 Pneumovax Adult(PT Reported) 04/26/2014 Shingrix (Patient reported) 09/02/2023, 3 TD (STATE SUPPLIED FOR ADULT S AND CHILDREN) 05/15/2022 Tdap 12/05/2011 Family History Medical History Relation Name Comments Hypertension Father Stroke Father Cancer of the Breast Mother Aunt al so Celiac disease Sister Relation Name Status Comments Father Mother Sister Social History Tobacco Use Types Packs/Day Years Used Date Smoking Tobacco: Former Smokeless Tobacco: Never Tobacco Cessation:Counseling Given: Not Answered Alcohol Use Standard Drinks/Week Comments Yes 0 (1 standard drink = 0.6 oz pur e alcohol) 3+ beers per day Sex Assigned at Date Recorded Not on file Job Start Date Occupation Industry Not on file Not on file Not on file Last Filed Vital Signs Vital Sign Reading Time Taken Comments Blood Pressure 139/81 11/21/2023 8:06 AM EDT Pulse 75 11/21/2023 8:06 AM EDT Temperature 36.3 ??C (97.4 ??F) 11/21/2023 8:06 AM ED T Respiratory Rate 16 05/21/2023 11:27 AM EST Oxygen Saturation 98% 03/22/2021 10:32 AM EDT Inhaled Oxygen Concentration - - Weight 78 kg (172 lb) 03/16/2024 3:51 PM EDT Height 175.3 cm (5' 9 ) 03/16/2024 3:51 PM EDT Body Mass Index 25.4 03/16/2024 3:51 PM EDT Plan of Treatment Health Maintenance Due Date Last Done Comments DEPRESSION SCREEN 1967 PNEUMOCOCCAL VACCINE (2 - PCV) 05/15/2023 05/15/2022 Covid-19 Vaccine ( season) 2024 05/27/2023, 03/24/2022, 04/09/2021, Additional history exists BMI CHECK/ADVISE 06/16/2024 05/15/2022, , 09/11/2020, Additional history exists INFLUENZA (Season Ended) 2025 023, 03/24/2022, 03/22/2021, Additional history exists CHOLESTEROL SCREENING 10/22/2028 10/23/2023 , 04/25/2023, 05/13/2022, Additional history exists COLON CANCER SCREENING 02/05/2031 , 03/02/2020, 11/11/2018, Additional history exists DTAP/TDAP/TD (3 - Td or Tdap) 05/15/2032 05/15/2022, 12/05/2011 HEPATITIS C SCREENING Addressed 06/20/2021, 014 Overridden with the intention of not completing the topic ABDOMINAL AORTIC ANEURYSM (AAA) SCREENING Completed 01/01/2022 SHINGLES VACCINE Completed 09/02/2023, 05/27/2023 Care Teams Clinical Services Consultant Relationship Specialty Start Date End Date Stephanie Espinosa PA PCP - General Medical Physician Records Assistant 03/16/24
--- OUTSIDE RECORDS SUMMARY | 2024-10-06 08:26 | XMS_ITS | Encounter Summary ---
Author Organization [employer] [facility] Address [address] [place] [address] Care Team Providers Care Handmade Tile Artist Name Role Phone Casimiro Cat MD Primary Care Provider [phone] Stephanie Espinosa Primary Care Provider Unav ailable Encounter Details Date Type Department Care Team Description 12/19/2018 [facility] Medical Records [address] [place] [id number] [place] [address] Social History Tobacco Use Types Packs/Day Years [...] on filedocumented in this encounter Care Teams Handmade Tile Artist Relationship Specialty Start Date End Date Casimiro Cat MD [address] [place] [address] PCP - General Internal Medicine 09/13/11 03/15/24 Stephanie Espinosa PA [address] [place] [address] PCP - General Medical Physician Fence Post Driver 03/16/24 documented as of this encounter
== END 2024-10-06 09:00 | disposition home or self-care (01) ==
LOC: HO.RHE 08:11
PROVIDERS: Visit Provider Student in an Organized Health Care Education/Training Program
DX: M35.3 Polymyalgia rheumatica (principal); M15.9 Polyosteoarthritis, unspecified; M1A.09X0 Idiopathic chronic gout, multiple sites, without tophus (tophi); Z51.81 Encounter for therapeutic drug level monitoring; Z79.899 Other long term (current) drug therapy; Z79.52 Long term (current) use of systemic steroids
CPT/HCPCS: 99214; G2211

== ENCOUNTER → 2024-10-06 08:11 | Outpatient (BNVA) | payer MEDICARE, SELFPAY | PROVIDERS: Visit Provider Student in an Organized Health Care Education/Training Program | DX: M35.3 Polymyalgia rheumatica (principal); M15.9 Polyosteoarthritis, unspecified; M1A.09X0 Idiopathic chronic gout, multiple sites, without tophus (tophi); M81.0 Age-related osteoporosis without current pathological fracture; E55.9 Vitamin D deficiency, unspecified; Z51.81 Encounter for therapeutic drug level monitoring; Z79.899 Other long term (current) drug therapy; Z79.52 Long term (current) use of systemic steroids | CPT/HCPCS: 99212 ==

== ENCOUNTER 2024-11-17 08:30 | Outpatient (REF) | payer MEDICARE, SELFPAY ==
--- NOTE | ~2024-11-17 | MM_ITS ---
EXAMINATION: DXA BONE DENSITY AXIAL HISTORY: M81.0 - Age-related osteoporosis without current pathological fracture TECHNIQUE: [facility] Dual energy absorptiometry (DEXA) of the lumbar spine, total left hip, and femoral neck was performed. COMPARISON: There are no prior studies for comparison. FINDINGS: The bone mineral density of the lumbar spine is 1.068, corresponding to a T-score of -1.3, and a Z-score of -0.6. This is indicative of osteopenia. The bone mineral density of the left total hip is 0.773, corresponding to a T-score of -2.3, and a Z-score of -1.5. This is indicative of osteopenia. The bone mineral density of the left femoral neck is 0.752, corresponding to a T-score of -2.4, and a Z-score of -1.1. This is indicative of osteopenia. FRACTURE RISK: The FRAX index suggests a risk of major osteoporotic fracture of 17.3%, and of hip fracture 6.2%. MM/XR DEXA axial skeleton IMPRESSION: Based on bone mineral density, and according to World Health Organization (WHO) criteria, the diagnosis is consistent with osteopenia. All bone density values are in grams per centimeter squared (g/cm2). Statistically, 68% of repeat scans fall within 1 SD (+/- 0.010 g/cm2 for AP spine L1-L4) and 1 SD (+/- 0.012 g/cm2 for femur total) FRAX is a trademark of the [employer]'s [place] [employer] Metabolic Bone Disease, a World Health Organization (WHO) Collaborating Center. Electronically signed by: Aime Perez MD 11/17/2024 09:32 AM EDT
--- OUTSIDE RECORDS SUMMARY | 2024-11-17 08:39 | XMS_ITS | Clinical Summary ---
Author Organization [facility] Address [address] [place] [address] Care Team Providers Care Neurology Technician Name Role Phone Casimiro Cat MD Primary Care Provider + [phone] Allergies No known active allergies Medications Medication [...] 2 - PCV) 05/15/2023 05/15/2022 Influenza Vaccine (Season Ended) 2025 04/25/2023, 03/24/2022, 03/22/2021, Additional history exists RSV Adult > 60+ Yrs or (1 - 1-dose 75+ series) 2031 Shingrix-Zoster Vaccine Completed 09/02/2023, 05/27 Hepatitis B Vaccines Aged Out No long er eligible based on patient's age to complete this topic RSV Ped < 20 months Aged Out No longe r eligible based on patient's age to complete this topic Care Teams Neurology Technician Relationship Specialty Start Date End Date Casimiro Cat MD PCP - General Editor Magazine 08/13/22
== END 2024-11-17 08:31 | disposition home or self-care (01) ==
LOC: HO.MAMMO 08:30
PROVIDERS: PCP Pediatrics; Visit Provider Student in an Organized Health Care Education/Training Program
DX: M81.0 Age-related osteoporosis without current pathological fracture (principal)
CPT/HCPCS: 77080

== ENCOUNTER → 2024-11-17 08:45 | Outpatient (BNV) | payer MEDICARE, SELFPAY | PROVIDERS: PCP Pediatrics; Visit Provider Radiology Diagnostic Radiology | DX: M85.88 Other specified disorders of bone density and structure, other site (principal) | CPT/HCPCS: 77080 ==

== ENCOUNTER 2025-02-07 08:36 | Outpatient (REF) | payer MEDICARE, SELFPAY ==
--- OUTSIDE RECORDS SUMMARY | 2025-02-07 09:01 | XMS_ITS | Clinical Summary ---
Author Organization [facility] Address [address] [place] [address] Care Team Providers Care Precision Agronomist Name Role Phone Casimiro Cat MD Primary Care Provider + [phone] Allergies No known active allergies Medications Medication [...] 67 10/29/2023 9:33 AM EDT Temperature 36.6 C (97.8 F) 10/29/2023 9:33 AM EDT Respiratory Rate - - Oxygen Saturation 96% [...] - PCV) 05/15/2023 05/15/2022 Influenza Vaccine (#1) 2025 3, 03/24/2022, 03/22/2021, Additional history exists RSV Adult > 60+ Yrs or (1 - 1-dose 75+ series) 2031 Shingrix-Zoster Vaccine Completed 09/02/2023, 05/27 Hepatitis B Vaccines Aged Out No long er eligible based on patient's age to complete this topic RSV Ped < 20 months Aged Out No longe r eligible based on patient's age to complete this topic Care Teams Precision Agronomist Relationship Specialty Start Date End Date Casimiro Cat MD PCP - General Pinion And Wheel Truer 08/13/22
--- OUTSIDE RECORDS SUMMARY | 2025-02-07 09:01 | XMS_ITS ---
Author Name [facility] Organization Unknown History of Medication Use Medication Directions Dispensed Refills Start Date End Date Stat prednisone 5 mg tablet 10/06/2023 active allopurinol 300 mg tablet active amlodipine 2.5 mg tablet active diclofenac sodium 75 mg tablet,delayed release active Eliquis 5 mg tablet acti ve Eliquis DVT-PE Treatment 30-Day Starter 5 mg (74 tablets) in dose pack TAKE 1 TABLET BY MOUTH DIRECTED active pravastatin 80 mg tablet active prednisone 1 mg tablet active prednisone 20 mg tablet active Problems Problem Status Onset Date Problem Type Date of Resoluti on Source Inflammation of semimembranosus muscle bursa of left knee active 2022-12-23 [facility]Act [facility] 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 2023-10-06 ProblemAct [facility] Lateral epicondylitis of right humerus active 2023-03-07 ProblemAct [facility] Pain of right knee joint active 2022-12-23 ProblemAct [facility] Encounters Encounter Type Encounter Reason Primary Diagnosis Location Date Ambulatory Encounter for genera l adult medical examination without abnormal findings Encounter for general adult medical examination without abnormal findings [facility] 05/26/2024 Ambulatory Hypercalcemia Hypercalcemia [facility] 01/28/2024 Ambulatory [facility] 10/06/2023 Ambulatory [facility] 09/22/2023 Ambulatory [facility] 08/19/2023 Ambulatory [facility] 08/11/2023 Ambulatory [facility] 07/03/2023 Ambulatory [facility] 03/07/2023 Ambulatory [facility] 03/07/2023 Ambulatory [facility] 03/06/2023 Ambulatory [facility] 01/23/2023 Ambulatory [facility] 01/07/2023 Ambulatory [facility] 01/07/2023 Ambulatory [facility] 01/06/2023 Ambulatory [facility] 01/06/2023 Ambulatory [facility] 01/06/2023 Ambulatory [facility] 12/24/2022 Ambulatory [facility] 12/23/2022 Ambulatory [facility] 12/23/2022 Ambulatory [facility] 12/19/2022 Ambulatory [facility] 12/19/2022 Ambulatory [facility] 12/19/2022 Ambulatory [facility] 12/19/2022 Ambulatory [facility] 12/19/2022 Care Team Organization Name Specialty Phone Email Start Date End Da te [facility] SONIA Primary Care 01/28/2024 [facility] DECLAN SCOTT Primary Care 01/28/2024 [facility] NO PCP Primary Care 01/20/2024
--- OUTSIDE RECORDS SUMMARY | 2025-02-07 09:01 | XMS_ITS | Clinical Summary ---
Author Organization [facility] Address [address] [place] [address] Phone Care Team Providers Care Negative Checker Name Role Phone Dino Cat MD Primary Care Provider [phone] Allergies No known active allergies Medications rosuvastatin (CRESTOR) 40 mg tablet Take 1 tablet (40 mg total) by mouth daily. 05/26/20 24 Active allopurinoL (ZYLOPRIM) 300 mg tablet TAKE 1 TABLET BY MOUTH DAILY 100 tablet 1 08/27/19 25 Active hydroxychloroq uine (PLAQUENIL) 200 mg tablet 10/12/19 25 Active celecoxib (CeleBREX) 200 mg capsule 10/12/19 25 Active Eliquis 2.5 mg tablet TAKE 1 TABLET BY MOUTH TWICE DAILY 200 tablet 02/02/20 25 Active apixaban (Eliquis) 5 mg tabletIndicati ons:History of DVT (deep vein thrombosis) Take 0.5 tablets (2.5 mg total) by mouth 2 (two) times a day. Take 1 tablet (5 mg total) by mouth every 12 (twelve) hours. 200 tablet 02/02/20 25 Active amLODIPine (NORVASC) 2.5 mg tablet TAKE 1 TABLET BY MOUTH DAILY 100 tablet 02/05/20 25 Active benazepriL (LOTENSIN) 40 mg tablet TAKE 1 TABLET BY MOUTH DAILY 100 tablet 02/05/20 25 Active benazepriL (LOTENSIN) 40 mg tablet TAKE 1 TABLET BY MOUTH DAILY 100 tablet 1 08/27/19 25 025 Discontinued amLODIPine (NORVASC) 2.5 mg tablet TAKE 1 TABLET BY MOUTH DAILY 100 tablet 1 08/27/19 25 025 Discontinued apixaban (Eliquis) 5 mg tabletIndicati ons:History of DVT (deep vein thrombosis) Take 0.5 tablets (2.5 mg total) by mouth 2 (two) times a day. Take 1 tablet (5 mg total) by mouth every 12 (twelve) hours. 100 tablet 1 09/18/19 25 025 Discontinued(Re order) apixaban (Eliquis) 2.5 mg tablet Take 1 tablet (2.5 mg total) by mouth 2 (two) times a day. 200 tablet 1 09/22/19 025 Discontinued Hospital, Clinic, or Other Facility Administered Medication Ordered Dose Route Frequency Start Date End Date Status BUPivacaine HCl (MARCAINE) 0.25 % injection 2 mLIndications:Left knee pain,Acute medial meniscus tear of left knee, initial encounter 2 mL inj Once PRN Procedure 01/26/2025 01/26/2025 Ended lidocaine (XYLOCAINE) 1 % injection 2 mLIndications:Left knee pain,Acute medial meniscus tear of left knee, initial encounter 2 mL inj Once PRN Procedure 01/26/2025 01/26/2025 Ended triamcinolone acetonide (KENALOG-40) 40 mg/mL injection 40 mgIndications:Left knee pain,Acute medial meniscus tear of left knee, initial encounter 40 mg IAtc Once PRN Procedure 01/26/2025 01/26/2025 Ended Active Problems Problem Noted Date Diagnosed Date History of pulmonary embolism 11/17/2024 Overview (11/17/2024): 2013 following shoulder surgery 04/07 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 Invasive adenocarcinoma---surgery 02/02. Polyp x 5 02/03---3 yrs 06/08. Polyp---3 yrs Other spondylosis with radiculopathy, cervical r egion 11/09/2024 Cervical spondylosis with radiculopathy 09/09/19 25 Assessment & Plan (10/29/2024 3:16 PM EDT): I reviewed the MRI findings with Mr. Aj and he does have severe left C6-7 foraminal narrowing. Unfortunately, he has bilateral symptoms now although the left is significantly worse. He asked if it was possible to address both sides but the right foramina are wide open since his surgery years ago. The only way to provide any further decompression and address both sides would be with an ACDF as increasing the disc height with a graft will provide indirect decompression along the entire course of the foramina. He struggled with this as he is off steroids and on Plaquenil for his rheumatoid arthritis but, needs to take Celebrex every 3 days or so pain in multiple joints including his hips. We would want him to remain off of anti-inflammatory such as Celebrex for 3 to 6 months after a fusion and he does not think that he could tolerate that at all. Such, he asked that we performed the foraminotomy only and not an anterior approach. We specifically discussed the details, risks, benefits and anticipated postoperative course after a left C6-7 foraminotomy. I will try to use his previous incision and conductor pullman to the left side. He will need to hold his Celebrex for 7 days pre and postsurgery as well as holding his Eliquis for 3 days before and after surgery. All questions were answered, we will send him for medical clearance, he wishes to proceed. Assessment & Plan (10/12/2024 3:40 PM EDT): Aneta continues to describe neck and left greater than right arm symptoms. He has been going to physical therapy including cervical traction but never gets any lasting relief. He takes Celebrex but it does not seem to help. He says that he religiously does his exercises at home but things just do not improve. On exam he has subtle weakness in his quill layer strength bilaterally with trace weakness in the left tricep. The remainder of his exam is within normal limits. X-rays of the cervical spine from September 08, 2024 at [facility] revealed narrowing of the C6-7 disc spaces consistent with degenerative disc disease. He is asking for an MRI and I think that is reasonable. I will order it and he will follow-up afterwards. Assessment & Plan (09/08/2024 11:25 AM EDT): Mr. Aj describes a little over a month of [...] was some loss of disc height Mr. 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 Referred to ENT for paranasal sinus disease. Abnormal CXR 05/21/2018 Overview (09/07/2024): Ct Angio- f/u cxr never done in 2016 Reordered 06/02---Not done Hypercholesterolemia 12/06/2011 Retinitis pigmentosa 12/06/2011 Overview (09/07/2024): Capsulotomy 10/28 Gout 09/23/2011 Overview (09/07/2024): Intol indomethacin, motrin. Celebrex works well. allopurinol started 201409/03 allopurinol reduced to 300 mg Resolved Problems Problem Noted Date Diagnosed Date Resolved Date Left knee pain 09/13/2022 11/17/2024 Overview (09/07/2024): Posterior medial knee pain- Semimem tendonitis Vs degen meniscus tear. 08/30/22 Complete resolution of pain following US guided Depomedrol inj along Smeimem tendon. Will likely cancel arthroscopic surg for meniscus Encounters Date Type Department Care Team Description 01/26/2025 3:15 PM EDT Office Visit Orthopedic Surgery [facility] [address] [facility] [address] [place] [phone] Tobi Moise MD Left knee pain (Primary Dx); Acute medial meniscus tear of left knee, initial encounter 11/19/2024 Telephone Neurosurgery [place] [facility] [address] [facility] [address] [place] [phone] [place] 11/17/2024 10:00 AM EDT Consult Adult Medicine [address] [phone] Dino Cat MD Preop cardiovascular exam (Primary Dx); History of pulmonary embolism from Last 3 Months Immunizations Name Administration [...] for your loved ones. For example, child care development specialist or elderly care for an older adult? [...] Sign Reading Time Taken Comments Blood Pressure 134/75 11/17/2024 9:50 AM EDT Pulse 64 11/17/2024 9:50 AM EDT Temperature 36.5 C (97.7 F) 11/17/2024 9:50 AM EDT Respiratory Rate 16 08/25/2024 8:31 AM EDT Oxygen Saturation 99% 06/03/2024 10:26 AM EST Inhaled Oxygen Concentration - - Weight 72.3 kg (159 lb 6.4 oz) 11/17/2024 9:50 A M EDT Height 175.3 cm (5' 9 ) 11/17/2024 9:50 AM EDT Body Mass Index 23.54 11/17/2024 9:50 AM EDT Plan of Treatment Upcoming Encounters Date Type Department Care Team (Late st Contact Info) Description 03/02/2025 8:30 AM EDT Office Visit Adult Medicine - [place] [address] [place] [phone] Dino Cat MD [address] [place] [address] Health Maintenance Due Date Last Done Comments Hepatitis C Screening 05/18/2022 Medicare Annual Wellness Visit 05/18/2022 Pneumococcal Vaccine: 50+ Years (2 of 2 - PCV) 05/15/2023 05/15/2022 COVID-19 Vaccine (7 - Moderna risk season) 2024 03/09/2024, 05/27/2023, 03/24/2022, Additional history exists Hypertension/CHF/CAD Annual BMP Blood Test 10/22/2024 10/23/2023 Influenza Vaccine (#1) 2025 , 04/25/2023, 03/24/2022, Additional history exists Falls Risk Assessment 06/03/2025 06/03/2024 Social Influencers of Health Screening 08/24/2025 08/24/2024 Cholesterol Screening (Lipid Panel) 10/22/2028 10/23/2023 DTaP,Tdap,and Td Vaccines (4 - Td or Tdap) 05/15/2032 05/15/2022, 05/15/2022, 12/05/2011 Colorectal Cancer Screening: Colonoscopy 06/03/2034 06/03/2024 Abdominal Aortic Aneurysm (AAA) Screen Completed 01/01/2022 RSV Immunization Adult Patients Completed 06/17/2023 Zoster Vaccines Completed 09/02/2023, 05/27/2023 Depression Screening Completed 08/24/2024 HIB Vaccines Aged Out No longer eligi [...] Procedure Name Priority Date/Time Associated Diagnosis Comments AZ ARTHROCENTESIS/ASPI RATION/INJECTION MAJOR JOINT/BURSA W/O U/S GUIDANCE Routine 01/26/2025 3:15 PM EDT Left knee pain Acute medial meniscus tear of left knee, initial encounter XR KNEE 3 VIEWS LEFT Routine 01/26/2025 3:00 PM EDT Left knee pain ECG 12-LEAD Routine 11/18/2024 8:23 AM EDT EXTERNAL DEXA REPORT 11/17/2024 COLONOSCOPY Routine 06/03/2024 10:05 AM EST Personal history of colon cancer US ABDOMINAL AORTA REAL TIME SCREEN STUDY AAA Routine 01/01/2022 7:48 AM EDT Encounter for screening for cardiovascular disorders from Last 3 Months or Most Recently Relevant to Health Maintenance Results * AZ ARTHROCENTESIS/ASPIRATION/INJECTION MAJOR JOINT/BURSA W/O U/S GUIDANCE (01/26/2025 3:15 PM EDT) Narrative Tobi Moise MD - 01/26/2025 3:15 PM EDT Tobi Moise MD 01/26/2025 3:28 PM L Inj/Asp: L knee Indications: pain Details: 21 G needle, anterolateral approach Medications: 2 mL BUPivacaine HCl 0.25 %; 2 mL lidocaine 1 %; 40 mg triamcinolone acetonide 40 mg/mL Informed Consent: Laterality: Left Relevant images/test results available and reviewed: yes Health status cleared: Yes Procedure/treatment, purpose, treatment alternatives, risks/potential complications and benefits explained: yes Patient questions answered: yes Patient agrees, verbalizes understanding, and wants to proceed: yes Consent given by: Patient Informed consent discussion completed by Physician/JUAN J with patient: Verbal Pre-procedure timeout performed: yes us Tobi Moise MD IN CLINIC/BEDSIDE ORDERABLES F inal Result * XR Knee 3 Views Left (01/26/2025 3:00 PM EDT) Anatomical Region Laterality Modality Lower Extremities, Knee Left Computed Radiography Narrative 01/26/2025 3:02 PM EDT Knee x-rays January 26, 2025. Bilateral PA weightbearing views. Lateral view of the left knee. [place] view of the left knee. No acute osseous abnormalities. Good preservation of the articular cartilage. No patellar malposition. us Tobi Moise MD IMG XR PROCEDURES Final Result * ECG 12 lead (11/18/2024 8:23 AM EDT) Historical Provider ECG ORDERABLES Final Res ult * External Dexa Report (11/17/2024) Anatomical Region Laterality Modality Bone Densitometr y Provider [facility] IMG DXA PROCEDURES Final Result * COLONOSCOPY Anesthesia - MAC; [facility] ENDOSCOPY (06/03/2024 10:05 AM EST) Anatomical Region Laterality Modality Endoscopy 06/03/2024 9:45 AM EST Impressions 06/03/2024 10:08 AM EST - Patent end-to-side ileo-colonic anastomosis, characterized by healthy appearing mucosa. - Patent end-to-side colo-colonic anastomosis, characterized by healthy appearing mucosa. - One 5 mm polyp at the splenic flexure, removed with a cold snare. Resected and retrieved. - Diverticulosis in the sigmoid colon. - Non-bleeding internal hemorrhoids. - The examination was otherwise normal on direct and retroflexion views. Recommendation: - Discharge patient to home. - High fiber diet. - Continue present medications. - Resume Eliquis (apixaban) at prior dose tomorrow. - Await pathology results. - Repeat colonoscopy for surveillance based on pathology results. - Return to GI office PRN. Narrative 06/03/2024 10:08 AM EST [facility] GI Patient Name: Angel Aj Procedure Date: 06/03/2024 9:45 AM Date of : 1955 Age: 68 Gender: Male Note Status: Finalized Attending MD: Estaurdo Geronimo MD, Procedure Date No Time: 06/03/2024 Procedure: Colonoscopy Indications: High risk colon cancer surveillance: Personal history of colonic polyps, High risk colon cancer surveillance: Personal history of colon cancer Providers: Estuardo Geronimo MD Referring MD: Estuardo Geronimo MD Medicines: Monitored Anesthesia Care Complications: No immediate complications. Estimated Blood Loss: Estimated blood loss: none. Procedure: Pre-Anesthesia Assessment: - ASA Grade Assessment: III - A patient with severe systemic disease. - After reviewing the risks and benefits, the patient was deemed in satisfactory condition to undergo the procedure. After I obtained informed consent, the scope was passed under direct vision. Throughout the procedure, the patient's blood pressure, pulse, and oxygen saturations were monitored continuously.The Olympus Pediatric Colonoscope was introduced through the anus and advanced to the ileocolonic anastomosis. The colonoscopy was performed without difficulty. The patient tolerated the procedure well. The quality of the bowel preparation was good. Findings: There was evidence of a prior end-to-side ileo-colonic anastomosis in the ascending colon. This was patent and was characterized by healthy appearing mucosa. The anastomosis was traversed. There was evidence of a prior end-to-side colo-colonic anastomosis in the proximal rectum. This was patent and was characterized by healthy appearing mucosa. A 5 mm polyp was found in the splenic flexure. The polyp was sessile. The polyp was removed with a cold snare. Resection and retrieval were complete. Estimated blood loss was minimal. A few small-mouthed diverticula were found in the sigmoid colon. Non-bleeding internal hemorrhoids were found during retroflexion. The hemorrhoids were small. The exam was otherwise without abnormality on direct and retroflexion views. Procedure Code(s): --- Professional --- 26783, Colonoscopy, flexible; with removal of tumor(s), polyp(s), or other lesion(s) by snare technique Diagnosis Code(s): --- Professional --- Z86.010, Personal history of colonic polyps Z85.038, Personal history of other malignant neoplasm of large intestine D12.3, Benign neoplasm of transverse colon (hepatic flexure or splenic flexure) Z98.0, Intestinal bypass and anastomosis status CPT copyright 2020 [employer]. All rights reserved. The codes documented in this report are preliminary and upon ammonia solution preparer review may be revised to meet current compliance requirements. Estuardo Geronimo MD 06/03/2024 10:08:31 AM This report has been signed electronically.Estuardo Geronimo MD Number of Addenda: 0 Note Initiated On: 06/03/2024 9:45 AM Scope In: Scope Out: Endoscopy Department at [facility] - [address] [place] [phone] Procedure Note Estuardo Geronimo MD - 06/03/2024 [facility] GI Patient Name: Angel Aj Procedure Date: 06/03/2024 9:45 AM Date of [...] Findings: There was evidence of a prior zxt-pa-mcmxniez-colonic anastomosis in the ascending colon. This was patent and was characterized by healthy appearing mucosa.The anastomosis was traversed. There was evidence of a prior dyk-ge-nscdyaju-colonic anastomosis in the proximal rectum. This was [...] retroflexion views. Procedure Code(s): --- Professional --- 80116, Colonoscopy, flexible; with removal of tumor(s), polyp(s), or other lesion(s) by snare technique Diagnosis Code(s): --- Professional --- Z86.010, Personal history of colonic polyps Z85.038, Personal history of other malignantneoplasm of large intestine D12.3, Benign neoplasm of transverse colon (hepatic flexure or splenic flexure) Z98.0, Intestinal bypass and anastomosis status CPT copyright 2020 [employer]. All rights reserved. The codes documented in this report are preliminary and upon ammonia solution preparer reviewmay be revised to meet current compliance requirements. Estuardo Geronimo MD 06/03/2024 10:08:31 AM This report has been signed electronically.Estuardo Geronimo MD Number of Addenda: 0 Note Initiated On: 06/03/2024 9:45 AM Scope In: Scope Out: Endoscopy Department at [facility] - [address] [place] [phone] IMPRESSION: - Patent end-to-side ileo-colonic anastomosis, characterized [...] aortic aneurysm. 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
--- OUTSIDE RECORDS SUMMARY | 2025-02-07 09:01 | XMS_ITS | Clinical Summary ---
Author Organization [facility] Address [address] [place] [address] Care Team Providers Care Foam Tank Laminator Name Role Phone Estuardo Geronimo MD Unavailable Unavailable Allergies No known active allergies Medications allopurinol (ZYLOPRIM) 300 MG tablet Take 1 tablet (300 mg total) by mouth daily. 12/15/2023 Active amLODIPine (NORVASC) 2.5 MG tablet Take 1 tablet (2.5 mg total) by mouth daily. 05/21/2023 Active benazepril (LOTENSIN) 40 MG tablet Take 1 tablet (40 mg total) by mouth daily. 05/21/2023 Active Multiple Vitamins-Minera ls (Centrum Silver 50+Men) Tab Active predniSONE (DELTASONE) 1 MG tablet Take 1 tablet (1 mg total) by mouth daily. 1mg po in am and 2.5mg in the pm Active apixaban (ELIQUIS) 5 MG tabletIndicatio ns:History of DVT (deep vein thrombosis),His tory of pulmonary embolism Take 0.5 tablets (2.5 mg total) by mouth 2 (two) times a day. 200 tablet 3 06/21/2024 Active rosuvastatin (CRESTOR) 40 MG tabletIndicatio ns:Hypercholest erolemia TAKE 1 TABLET BY MOUTH DAILY 100 tablet 2 09/20/2024 Active Active Problems Problem Noted Date Diagnosed Date [...] never done in 2017 Reordered 06/02---Not done Malignant melanoma 10/13/2014 4 Deep venous thrombosis (DVT) of right peroneal vein 04/30/2014 01/28/2024 Immunizations Immunization Administration Dates Next Due Covid-19 [...] drink = 0.6 oz pu re alcohol) [facility] Utilities Answer Date Recorded In the past 12 months has th e electric, gas, oil, or water company threatened to shut off services in your home? No 05/25/2024 Social Connection and Isolat ion Panel [NHANES] Answer Date Recorded In a typical week, how many times do you talk on the phone with family, friends, or neighbors? More than three times a week 05/25/2024 Frequency of Social Gatherin gs with Friends and Family Not on file 05/25/2024 Attends Yazdanism Services Not on file 05/25 Active Member [...] any time in the past 12 m [facility], were you homeless or living in a snf (including now)? No 05/25/2024 Education Answer Date [...] 65 05/26/2024 9:29 AM EST Temperature 36.5 C (97.7 F) 05/26/2024 9:29 AM EST Respiratory Rate 16 05/26/2024 9:29 AM EST [...] 2024 05/27/2023, 03/24/2022, 04/09/2021, Additional history exists Influenza Vaccine 01/14/2025 03/09/2024, , 03/24/2022, Additional history exists DTaP/Tdap/Td Vaccines (3 - T d or Tdap) 05/15/2032 05/15/2022, 12/05/2011 Colonoscopy 06/03/2034 06/03/2024 RSV Vaccine 60 years and old er and Patients Completed 06/17/2023 Zoster (Shingles) Vaccine Completed 09/02/2023, 05/2023 Annual Wellness Visit Discontinued 05/26/2024 Procedures Procedure [...] Relevant to Health Maintenance Insurance [employer] MEDICARE Care Teams Foam Tank Laminator Relationship Specialty Start Date End Date Estuardo Geronimo MD Gastroenterology 05/26/24
[2025-02-07 10:52] LABS: MANUAL DIFF FLAG NO
[2025-02-07 11:02] LABS: Hematocrit 43.8 % (42.0-52.0); Hemoglobin 14.6 g/dl (14.0-18.0); Imm Gran Abs Auto 0.09 X10*3/uL (0.00-0.03); Imm Gran Pct Auto 1.3 % (0.0-0.4); Lymphocytes Absolute Auto 2.3 X10*3/uL (1.2-4.9); Mean Corpuscular HGB Conc 33.3 g/dl (31.0-36.0); Mean Corpuscular Hemoglobin 30.8 pg (27.0-33.0); Mean Corpuscular Volume 92.4 fL (80.0-98.0); NRBC Abs Auto 0.000 X10*3/uL (0.0-0.012); NRBC Pct Auto 0.0 /100WBC (0.0-0.2); Platelet Count 155 X10*3/uL (160-400); Red Blood Count 4.74 X10*6/uL (4.60-5.80); White Blood Count 6.8 X10*3/uL (4.8-10.8)
[2025-02-07 11:25] LABS: Alanine Aminotransferase 67 U/L (0-40); Albumin Level 4.1 g/dL (3.5-5.0); Alkaline Phosphatase 54 U/L (39-117); Anion Gap 11 (12-20); Aspartate Amino Transferase 43 U/L (5-37); Blood Urea Nitrogen 18 mg/dL (9-16); Calcium 9.8 mg/dL (8.4-10.2); Carbon Dioxide 25 mmol/L (22-29); Chloride 106 mmol/L (96-108); Estimated Glomerular Filt Rate > 60; Potassium 3.9 mmol/L (3.3-5.1); Sodium 138 mmol/L (135-145); Total Protein 6.0 g/dL (6.5-8.0)
[2025-02-11 17:29] LABS: Vitamin D 25-OH, D2 <4 ng/mL; Vitamin D 25-OH, D3 34 ng/mL; Vitamin D 25-OH, Total 34 ng/mL (30-100)
== END 2025-02-07 08:37 | disposition home or self-care (01) ==
LOC: HO.10HDL 08:36
PROVIDERS: Visit Provider Student in an Organized Health Care Education/Training Program
DX: M35.3 Polymyalgia rheumatica (principal); E55.9 Vitamin D deficiency, unspecified
CPT/HCPCS: 36415; 80053; 82306; 85025; 85652; 86140; 86200; 86431

== ENCOUNTER 2025-02-09 08:24 | Outpatient (AMB) | payer MEDICARE, SELFPAY ==
--- NOTE | 2025-02-09 08:39 | A.OFFVIS_ITS ---
Vital Signs 02/09/25 08:46 Height 5 ft 10 in Weight 159 lb 6.307 oz BMI 22.9 BP 124/80 Blood Pressure Location Lt brachial Position Sitting Pulse 62 Pulse Source Pulse Oximeter Pulse Oximetry (%) 98 Oxygen Delivery Method Room Air Intake Visit Reasons: PMR/gout Intake Note: Patient presents for PMR follow up. Allergies No Known Allergies Allergy (Verified 02/09/25 08:45) Medication List - Last Reconciled 02/09/25 by Ailyn Bryant MD allopurinol 100 mg PO DAILY allopurinol 300 mg PO DAILY amlodipine 2.5 mg PO DAILY apixaban (Eliquis) 2.5 mg PO BID benazepril 40 mg PO DAILY celecoxib 200 mg PO DAILY hydroxychloroquine (Plaquenil) 200 mg PO BID prednisone 1 mg PO DAILY rosuvastatin 40 mg PO DAILY HPI Comments Details: Patient is a 69-year-old male with hypertension, hyperlipidemia, history of PE on Eliquis, history of melanoma, polyarticular osteoarthritis, PMR and non crystal proven gout here today for follow up Interval History: Patient last seen 10/06/2024 with me - Allopurinol 400mg daily and prednisone 1mg bid - Doing well with allopurinol. No gout flare for 5 years - Tried to decrease prednisone to 1mg daily and noticed worsening hand pain - Currently in PT for cervical degenerative disease with radiculopathy - Started plaquenil 200mg bid and planned to taper to off Since then, He had worsening neck pain and left upper arm pain which was similar to his radiculopathy in the past Had schedueld surgery but noted that he subsequently had improvement in his hand swelling and pain He cancelled surgery and was able to taper off the prednisone Today - Allopurinol 400mg daily, plaquenil 200mg bid - Doing well - Tapered off prednisone Rheumatologic History: PMR Diagnosed 2014 Prednisone started 2014 and then tapered off Restarted 11/2022 Gout non crystal proven Current Rheumatology Medication(s): Allopurinol 400 mg daily Plaquenil 200mg bid [facility] Medical History Generalized osteoarthritis of multiple sites PMR (polymyalgia rheumatica) History of rectal cancer History of pulmonary embolus (PE) Surgical History History of melanoma excision Family History Mother Breast cancer Father Stroke Social History Alcohol intake: current Alcohol intake frequency: 0-2 drinks per day Alcohol type: beer Patient Tobacco Use Status: Former Tobacco user Review of Systems Const Details: Review of Systems Constitutional: Denies fever, chills, weight loss ENT: Denies vision changes, eye pain or eye redness, dental caries, dry mouth GI: Denies nausea, vomiting, diarrhea, abdominal pain, change in BM Pulm: Denies SOB, ERIC, hemoptysis, wheezing Cards: Denies chest pain, palpitations Skin: Denies Raynaud's, rash, nail changes, photosensitivity, CASING SPLITTER: Denies headaches, weakness, paresthesias, recurrent falls MSK: as per HPI All other systems reviewed and are unremarkable except noted above Physical Exam Exam Exam: Vital signs reviewed Physical Examination CONSTITUITIONAL Patient alert and cooperative. Well appearing and in no apparent painful distress MSK Hands * Right Hand: Able to make a fist. No swelling or tenderness to palpation of the MCPs, PIPs or DIPs. * Left Hand: Able to make a fist. No swelling or tenderness to palpation of the MCPs, PIPs or DIPs. Wrists * Right Wrist: Full ROM to flexion and extension. No swelling or TTP * Left Wrist: Full ROM to flexion and extension. No swelling or TTP Elbows * Right Elbow: Full ROM. No swelling or TTP. No TTP of the medial epicondyle. No TTP of the lateral epicondyle * Left Elbow: Full ROM. No swelling or TTP. No TTP of the medial epicondyle. No TTP of the lateral epicondyle Shoulders * Right shoulder: Full ROM. No swelling noted. No TTP of the AC joint. No TTP of the subacromial bursa. No TTP of the posterior shoulder * Left shoulder: Full ROM. No swelling noted. No TTP of the AC joint. No TTP of the subacromial bursa. No TTP of the posterior shoulder Hip bursa: No tenderness to palpation bilaterally Knees * Right knee: Full ROM. No swelling noted. No TTP of the knee joint line. No TTP of pes anserine bursa * Left knee: Full ROM. No swelling noted. No TTP of the knee joint line. No TTP of pes anserine bursa. * Crepitations felt bilaterally Ankles * Right ankle: Good ankle dorsiflexion and plantar flexion. No swelling. No TTP of the ankle joint * Left ankle: Good ankle dorsiflexion and plantar flexion. No swelling. No TTP of the ankle joint Feet * Right foot: Negative squeeze test * Left foot: Negative squeeze test Tender points? * No tenderness to palpation of the bilateral trapezius, supraspinatus, anterior costochondral junctions, bilateral suboccipital muscle insertions Vital Signs: BMI result Body Mass Index 22.9 Results Reviewed Results Reviewed: Laboratory Tests 09/29/24 02/07/25 09:44 08:40 WBC 6.8 RBC 4.74 Hgb 14.6 Hct 43.8 Plt Count 155 L ESR 2 Sodium 138 Potassium 3.9 Chloride 106 Carbon Dioxide 25 BUN 18 H Creatinine 1.08 Uric Acid 3.1 L AST 42 H 43 H ALT 68 H 67 H C-Reactive Protein < 0.10 25-OH Vitamin D Total Pending Laboratory Tests 02/07/25 08:40 Rheumatoid Factor < 13.0 Cycl Citrul Peptide IgG <16 Assessment & Plan Assessment & Plan (1) PMR (polymyalgia rheumatica): Comment: On prednisone in 2014 - tapered off, restarted 11/2022 Added plaquenil 09/2024. Prednisone tapered off Code(s): M35.3 - Polymyalgia rheumatica Category: Medical Plan: #PMR Patient is a 69-year-old male with PMR currently in remission. Inflammatory markers are normal and no stiffness involving his shoulders or hips. Improved sx on plaquenil Plan - Plaquenil 200mg bid - RTC 6 months - Labs before visit: CBC, CMP, ESR, CRP, Uric acid (2) Generalized osteoarthritis of multiple sites: Code(s): M15.9 - Polyosteoarthritis, unspecified Category: Medical Plan: #Polyarticular OA Patient with polyarticular osteoarthritis. Did not respond well to topical diclofenac in the past. Overall sx improved (3) Gout: Comment: allopurinol started 2014 Code(s): M10.9 - Gout, unspecified Category: Medical Qualifiers: Gout site: multiple sites Gout etiology: idiopathic Chronicity: chronic Presence of tophus: without tophus Qualified Code(s): M1A.09X0 - Idiopathic chronic gout, multiple sites, without tophus (tophi) Plan: #Gout Patient doing well on allopurinol. Uric acid at goal No gout flares (4) Encounter for monitoring allopurinol therapy: Code(s): Z51.81 - Encounter for therapeutic drug level monitoring; Z79.899 - Other fpc (current) drug therapy Plan: #Long-term Current Use of Allopurinol Risks and benefits of allopurinol discussed with patient Benefits include decreased gout flares, remission of gout and reduction of tophi Risks include allopurinol hypersensitivity syndrome which is a severe cutaneous adverse reaction associated with allopurinol use particularly in patients who are HLA B*5801 positive, increased transaminases, GI upset including diarrhea, nausea and vomiting, and other dermatologic manifestations. (5) Encounter for monitoring of hydroxychloroquine therapy: Code(s): Z51.81 - Encounter for therapeutic drug level monitoring; Z79.899 - Other special agent fbi (current) drug therapy Plan: #Long-term Use of Hydroxychloroquine Discussed with patient the risks and benefits of hydroxychloroquine in managing the rheumatic condition Benefits include: - Reduced pain, reduce mortality, maintenance of remission and reduction of flares Risks include: - GI upset, skin hyperpigmentation, retinal toxicity (especially after more than 5 years of use), myopathy Advised yearly ophthalmology visits Plan I spent 30 minutes reviewing the record and labs, taking a history, examining the patient, discussing the treatment plan, ordering diagnostic work up and documenting in the medical record Orders: Orders Erythrocyte Sedimentation Rate 6 Months M1A.09X0 - Idiopathic chronic gout, multiple sites, without tophus (tophi), Z79.899 - Other special agent fbi (current) drug therapy Uric Acid 6 Months M1A.09X0 - Idiopathic chronic gout, multiple sites, without tophus (tophi) Complete Blood Count Auto Diff 6 Months M1A.09X0 - Idiopathic chronic gout, m ultiple sites, without tophus (tophi), Z79.899 - Other special agent fbi (current) drug therapy Comprehensive Met. Panel 6 Months M1A.09X0 - Idiopathic chronic gout, multiple sites, without tophus (tophi), Z79.899 - Other special agent fbi (current) drug therapy C Reactive Protein 6 Months M1A.09X0 - Idiopathic chronic gout, multiple sites, without tophus (tophi), Z79.899 - Other fpc (current) drug therapy Medications: Refilled allopurinol 100 mg PO DAILY 90 tabs 1RF M1A.09X0 - Idiopathic chronic gout, multiple sites, without tophus (tophi) allopurinol 300 mg PO DAILY 90 tabs 1RF M1A.09X0 - Idiopathic chronic gout, multiple sites, without tophus (tophi) hydroxychloroquine (Plaquenil) 200 mg PO BID 180 tabs 1RF M19.90 - Unspecified osteoarthritis, unspecified site Coding Level of Care Code Est Pt Level 4 (39404) Complex EM visit Add On G2211 Diagnoses PMR (polymyalgia rheumatica) M35.3 Generalized osteoarthritis of multiple sites M15.9 Idiopathic chronic gout of multiple sites without tophus M1A.09X0 Gout site: multiple sites Gout etiology: idiopathic Chronicity: chronic Presence of tophus: without tophus Encounter for monitoring allopurinol therapy Z51.81; Z79.899 Encounter for monitoring of hydroxychloroquine therapy Z51.81; Z79.899
--- OUTSIDE RECORDS SUMMARY | 2025-02-09 08:45 | XMS_ITS | Clinical Summary ---
Author Organization [facility] Address [address] [place] [address] Care Team Providers Care Process Consultant Name Role Phone Casimiro Cat MD Primary Care Provider + [phone] Allergies No known active allergies Medications Medication [...] age to complete this topic Care Teams Process Consultant Relationship Specialty Start Date End Date Casimiro Cat MD PCP - General Housing Project Manager 08/13/22
--- OUTSIDE RECORDS SUMMARY | 2025-02-09 08:45 | XMS_ITS | Encounter Summary ---
Author Organization [facility] Address [address] [place] [address] Care Team Providers Care Counselor/Art Therapist Name Role Phone Stephanie Espinosa PA-C Primary Care Provi stephen Estuardo Geronimo MD Unavailable Unavailable Encounter Details Date Type Department Care Team (Late st Contact Info) Description 02/26/2024 Scanned Document [address] [place] [phone] Stephanie Espinosa PA-C [address] [place] [address] Social History Tobacco Use Types Packs/Day Years [...] on filedocumented in this encounter Care Teams Counselor/Art Therapist Relationship Specialty Start Date End Date Stephanie Espinosa PA-C [address] [place] [address] PCP - General Internal Medicine 01/28/24 09/20/24 Estuardo Geronimo MD [address] [place] [address] Gastroenterology 05/26/24 documented as of this encounter
--- OUTSIDE RECORDS SUMMARY | 2025-02-09 08:45 | XMS_ITS | Clinical Summary ---
Author Organization [facility] Address [address] [place] [address] Care Team Providers Care Clinical Nurse Specialist Name Role Phone Estuardo Geronimo MD Unavailable [...] 0.6 oz pu re alcohol) [facility] Utilities Answer Date Recorded In the past [...] and Family Not on file 05/25/2024 Attends Spiritism Services Not on file 05/25 Active Member [...] any time in the past 12 m [facility], were you homeless or living in [...] Insurance [employer] MGD MEDICARE Care Teams Clinical Nurse Specialist Relationship Specialty Start Date End Date Estuardo Geronimo MD Gastroenterology 05/26/24
--- OUTSIDE RECORDS SUMMARY | 2025-02-09 08:45 | XMS_ITS | Clinical Summary ---
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 The remainder of his exam is within normal limits. 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 01/05/2024 Trigger middle finger of left hand 11/21/2023 Overweight (BMI 25.0-29.9) 09/11/2020 Malignant neoplasm of sigmoi d colon ([facility] V24, [facility] V28) 11/06/2018 Abnormal brain MRI 05/29/2018 [...] 3:15 PM EDT Office Visit Orthopedic Surgery [facility] [address] [facility] [address] [place] [phone] Tobi Moise MD Left knee pain (Primary Dx); Acute medial meniscus tear of left knee, initial encounter 11/19/2024 Telephone Neurosurgery [place] [facility] [address] [facility] [address] [place] [phone] [place] 11/17/2024 10:00 AM EDT Consult Adult Medicine [address] [phone] Dino Cat MD Preop cardiovascular exam (Primary [...] your loved ones. For example, child care sitter or elderly care for an older adult? [...] AM EDT Office Visit Adult Medicine - [place] [address] [place] [address] Dino Cat MD [address] [place] [address] Health Maintenance Due Date Last Done Comments [...] Procedure Name Priority Date/Time Associated Diagnosis Comments MD ARTHROCENTESIS/ASPI RATION/INJECTION MAJOR JOINT/BURSA W/O U/S GUIDANCE [...] Recently Relevant to Health Maintenance Results * MD ARTHROCENTESIS/ASPIRATION/INJECTION MAJOR JOINT/BURSA W/O U/S GUIDANCE (01/26/2025 [...] views. Lateral view of the left knee. Skillman view of the left knee. No acute [...] Final Result * COLONOSCOPY Anesthesia - MAC; [facility] ENDOSCOPY (06/03/2024 10:05 AM EST) Anatomical [...] PRN. Narrative 06/03/2024 10:08 AM EST [facility] GI Patient Name: Angel Aj Procedure Date: [...] retroflexion views. Procedure Code(s): --- Professional --- 28560, Colonoscopy, flexible; with removal of tumor(s), polyp(s), or other lesion(s) by snare technique Diagnosis Code(s): --- Professional --- Z86.010, Personal history of colonic polyps Z85.038, Personal history of other malignant neoplasm of large intestine D12.3, Benign neoplasm of transverse colon (hepatic flexure or splenic flexure) Z98.0, Intestinal bypass and anastomosis status CPT copyright 2020 [employer]. All rights reserved. The codes documented in this report are preliminary and upon flue blower review may be revised to meet current compliance requirements. Estuardo Geronimo MD 06/03/2024 10:08:31 AM This report has been signed electronically.Estuardo Geronimo MD Number of Addenda: 0 Note Initiated On: 06/03/2024 9:45 AM Scope In: Scope Out: Endoscopy Department at [facility] - [address] [place] [phone] Procedure Note Estuardo Geronimo MD - 06/03/2024 [facility] GI Patient Name: Angel Aj Procedure Date: [...] Findings: There was evidence of a prior kdh-or-rtqbyssw-colonic anastomosis in the ascending colon. This was patent and was characterized by healthy appearing mucosa.The anastomosis was traversed. There was evidence of a prior rsv-bo-wrnrvpcv-colonic anastomosis in the proximal rectum. This was [...] retroflexion views. Procedure Code(s): --- Professional --- 60788, Colonoscopy, flexible; with removal of tumor(s), polyp(s), or other lesion(s) by snare technique Diagnosis Code(s): --- Professional --- Z86.010, Personal history of colonic polyps Z85.038, Personal history of other malignantneoplasm of large intestine D12.3, Benign neoplasm of transverse colon (hepatic flexure or splenic flexure) Z98.0, Intestinal bypass and anastomosis status CPT copyright 2020 [employer]. All rights reserved. The codes documented in this report are preliminary and upon flue blower reviewmay be revised to meet current compliance requirements. 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
[2025-02-09 08:46] VITALS: BP 124/80; PULSE 62; O2SAT 98; BMI 22.9
== END 2025-02-09 09:03 | disposition home or self-care (01) ==
LOC: HO.RHES 08:24
PROVIDERS: PCP Pediatrics; Visit Provider Student in an Organized Health Care Education/Training Program
DX: M35.3 Polymyalgia rheumatica (principal); M15.9 Polyosteoarthritis, unspecified; M1A.09X0 Idiopathic chronic gout, multiple sites, without tophus (tophi); Z51.81 Encounter for therapeutic drug level monitoring; Z79.899 Other long term (current) drug therapy
CPT/HCPCS: 99214; G2211

== ENCOUNTER → 2025-02-09 08:24 | Outpatient (BNVA) | payer MEDICARE, SELFPAY | PROVIDERS: PCP Pediatrics; Visit Provider Student in an Organized Health Care Education/Training Program | DX: M81.0 Age-related osteoporosis without current pathological fracture (principal); M35.3 Polymyalgia rheumatica; M1A.09X0 Idiopathic chronic gout, multiple sites, without tophus (tophi); E55.9 Vitamin D deficiency, unspecified; M15.9 Polyosteoarthritis, unspecified; Z79.899 Other long term (current) drug therapy | CPT/HCPCS: 99212 ==